=== PATIENT | male | born 1960 | race Caucasian/White ===

== ENCOUNTER 2016-11-29 18:11 | Emergency (ER) | payer BC, OTHER ==
[2016-11-29 18:17] VITALS: TEMP 97.8
--- NOTE | 2016-11-29 18:46 | ED ---
Chest Pain HPI - General Chief Complaint: Chest Pain Stated Complaint: CHEST PAIN Time Seen by Provider: 11/29/16 18:19 Source: patient, RN notes reviewed Mode of arrival: wheelchair Limitations: no limitations - History of Present Illness Initial Comments: This is a 55-year-old male with a history of diabetes a former smoker quit over 20 years ago who states that he was lifting a case of wine prior to admission he started developing sharp midsternal chest pain with some brief shortness of breath. It did not last long he points to his lower extremities are reported area. He states he does get pain like this occasionally using farther to the left however. He is been seen by his patient intake coordinator and told it was not heart pain. Yesterday was cathed about 5 years ago and found have quite a 40% blockage of an artery. He currently is pain and symptom-free of note however he states over last week he's had elevated blood sugars into the 300 which is not normal for him. He denies any cough rhinorrhea earaches sore throat dysuria hematuria. MD Complaint: chest pain, other - Related Data Home Medications Medication Instructions Recorded Confirmed Aspirin 81 mg PO DAILY 11/29/16 11/29/16 Enalapril [Vasotec] 5 mg PO DAILY 11/29/16 11/29/16 Insulin Aspart [NovoLOG] See Protocol SQ AC-TID 11/29/16 11/29/16 Insulin Detemir [Levemir] 50 unit SQ HS 11/29/16 11/29/16 Liraglutide [Victoza 2-Carlos] 1.8 mg SQ QAM 11/29/16 11/29/16 Loratadine [Claritin] 10 mg PO DAILY 11/29/16 11/29/16 Metoprolol Tartrate [Lopressor] 50 mg PO BID 11/29/16 11/29/16 Multivitamins, Thera [Multivitamin 1 tab PO DAILY 11/29/16 11/29/16 (formulary)] Pioglitazone [Actos] 30 mg PO DAILY 11/29/16 11/29/16 Simvastatin 40 mg PO DAILY 11/29/16 11/29/16 Previous Rx's Medication Instructions Recorded Magnesium l-Lactate [Magbid ER] 84 mg PO DAILY #14 tablet.er 11/29/16 Allergies Allergy/AdvReac Type Severity Reaction Status Date / Time No Known Allergies Allergy Verified 11/29/16 19:08 Review of Systems ROS Statement: Those systems with pertinent positive or pertinent negative responses have been documented in the HPI. ROS Other: All systems not noted in ROS Statement are negative. EKG Findings - EKG Results: EKG: interpreted by TOREY LAYTON, sinus rhythm, normal axis, normal QRS, normal ST/ T, no acute changes (Normal sinus rhythm of 70 and appeared of 01 38 QRS duration 82 daily since QTC of 360/421 ct wave changes.) Past Medical History Past Medical History: Diabetes Mellitus History of Any Multi-Drug Resistant Organisms: None Reported Past Surgical History: Heart Catheterization, Orthopedic Surgery Past Psychological History: No Psychological Hx Reported Smoking Status: Never smoker Past Alcohol Use History: Rare Past Drug Use History: None Reported General Exam - General Exam Comments Initial Comments: This is a well-developed well-nourished awake alert oriented times 3 male Limitations: no limitations General appearance: alert, in no apparent distress Head exam: Present: atraumatic, normocephalic, normal inspection Eye exam: Present: normal appearance, PERRL, EOMI. Absent: scleral icterus, conjunctival injection, periorbital swelling ENT exam: Present: mucous membranes dry Neck exam: Present: normal inspection. Absent: tenderness, meningismus, lymphadenopathy Respiratory exam: Present: normal lung sounds bilaterally, chest wall tenderness (Reproducible tenderness palpation over left costochondral margin left costosternal junction.). Absent: respiratory distress, wheezes, rales, rhonchi, stridor Cardiovascular Exam: Present: regular rate, normal rhythm, normal heart sounds. Absent: systolic murmur, diastolic murmur, rubs, gallop, clicks GI/Abdominal exam: Present: soft, normal bowel sounds. Absent: distended, tenderness, guarding, rebound, rigid Extremities exam: Present: normal inspection, full ROM, normal capillary refill. Absent: tenderness, pedal edema, joint swelling, calf tenderness Back exam: Present: normal inspection Neurological exam: Present: alert, oriented X3, CN II-XII intact Psychiatric exam: Present: normal affect, normal mood Skin exam: Present: warm, dry, intact, normal color. Absent: rash Course Vital Signs 11/29/16 11/29/16 18:15 19:10 Temperature 97.8 F Pulse Rate 82 77 Respiratory 18 18 Rate Blood Pressure 133/62 128/72 O2 Sat by Pulse 97 98 Oximetry Chest Pain MDM - MDM I did discuss the findings with the patient including the nl xr. The presentation is consistent with a musculoskeletal etiology. The patient will be discharged and follow up with Dr. Carter Oakes and be given an Rx for mg+ Disposition Clinical Impression: Costalchondritis, Chest wall syndrome, Hypomagnesemia Disposition: HOME SELF-CARE Condition: Good Instructions: Costochondritis (ED) Prescriptions: Magnesium l-Lactate [Magbid ER] 84 mg PO DAILY #14 tablet.er Referrals: Arnold Osborn MD [Primary Care Provider] - 1-2 days
--- NOTE | 2016-11-29 19:12 | XR ---
EXAMINATION TYPE: XR chest 2V DATE OF EXAM: 11/29/2016 COMPARISON: 11/23/2010 HISTORY: Shortness of breath TECHNIQUE: Frontal and lateral views of the chest are obtained. FINDINGS: Scattered senescent parenchymal changes noted. Hyperinflation compatible with COPD. No evidence for infiltrate. No evidence for atelectasis. Heart size is stable. Mediastinal structures are stable and grossly unremarkable. No evidence for hilar prominence. Degenerative changes dorsal spine. IMPRESSION: 1. No evidence for acute pulmonary disease.
[2016-11-29 19:23] LABS: Creatine Kinase 522 U/L (55-170)
[2016-11-29 19:25] LABS: Appearance,Urine Clear (Clear); Bacteria,Urine Rare /hpf; Bilirubin,Urine Negative (Negative); CH 31.5; CHCM 35.1; Glucose,Urine (UA) 2+ (Negative); HCT 36.8 % (39.0-53.0); HDW 2.72; HGB 12.9 gm/dL (13.0-17.5); Ketones,Urine Negative (Negative); Leukocyte Esterase,Urine Negative (Negative); MCH 31.7 pg (25.0-35.0); MCHC 35.2 g/dL (31.0-37.0); MCV 90.1 fL (80.0-100.0); Mean Platelet Volume 7.9; Mucus,Urine Occasional /hpf; Nitrite,Urine Negative (Negative); PH, Urine 5.5 (5.0-8.0); Particle Count 3523; Protein,Urine 2+ (Negative); RBC 4.09 m/uL (4.30-5.90); RBC,Urine 1 /hpf (0-5); RDW 12.8 % (11.5-15.5); Specific Gravity,Urine 1.022 (1.001-1.035); UA Billing (MACRO vs. MICRO) MICRO; Urobilinogen,Urine <2.0 mg/dL (<2.0); WBC 8.8 k/uL (3.8-10.6); WBC (Perox) 8.75; WBC,Urine 1 /hpf (0-5)
[2016-11-29 19:33] LABS: ALT 38 U/L (21-72); AST 30 U/L (17-59); Alkaline Phosphatase 70 U/L (38-126); Amylase 98 U/L (30-110); Anion Gap 11 mmol/L; Blood Urea Nitrogen 18 mg/dL (9-20); Calcium 9.8 mg/dL (8.4-10.2); Carbon Dioxide 23 mmol/L (22-30); Chloride 104 mmol/L (98-107); Glucose 219 mg/dL (74-99); Magnesium 1.2 mg/dL (1.6-2.3); Non-African American GFR(MDRD) >60 (>60 ml/min/1.73 sqM); Potassium 4.7 mmol/L (3.5-5.1); Sodium 138 mmol/L (137-145); Total Bilirubin 0.5 mg/dL (0.2-1.3); Total Protein 7.5 g/dL (6.3-8.2)
[2016-11-29 19:34] LABS: Troponin I <0.012 ng/mL (0.000-0.034)
[2016-11-29 19:37] LABS: Creatine Kinase MB 3.5 ng/mL (0.0-2.4)
[2016-11-29 20:07] LABS: Add Differential Manual Differential
[2016-11-29 20:08] LABS: INR 1.1 (<1.1); Nucleated Red Blood Cells 0 /100 WBC (0-0); Prothrombin Time 11.2 sec (9.0-12.0); Total Cells Counted 100
[2016-11-29 20:09] LABS: Polychromasia Present
[2016-11-29] MEDS ORDERED: MAGNESIUM SULFATE-D5W PMX 1 GM in DEXTROSE/WATER 1 100ML.BAG IVPB ONE (20:11)
[2016-11-29] MEDS ORDERED: MAGNESIUM OXIDE 400 MG TAB PO STA (20:18)
[2016-11-29 20:41] VITALS: BP 131/68; PULSE 73; RESP 16
[2016-11-29 23:45] LABS: Hemoglobin A1C 8.4 % (4.2-6.1)
== END 2016-11-29 20:45 | disposition home or self-care (01) ==
LOC: EC 18:11
DX: M94.0 Chondrocostal junction syndrome [Tietze] (principal); E83.42 Hypomagnesemia; E11.9 Type 2 diabetes mellitus without complications; Z87.891 Personal history of nicotine dependence; Z79.4 Long term (current) use of insulin; Z79.82 Long term (current) use of aspirin; Z79.899 Other long term (current) drug therapy
CPT/HCPCS: 36415; 71020; 80053; 81001; 82009; 82150; 82550; 82553; 83036; 83690; 83735; 83880; 84484; 85025; 85379; 85610; 85730; 93005; 99285

== ENCOUNTER → 2018-06-07 | Outpatient (CLI) | payer BC ==
--- NOTE | 2018-06-07 13:41 | US ---
EXAMINATION TYPE: US kidneys/renal and bladder DATE OF EXAM: 06/07/2018 COMPARISON: CLINICAL HISTORY: N20.0 KIDNEY STONE. Hx of renal stones. Left side discomfort. EXAM MEASUREMENTS: Right Kidney: 10.6 x 5.1 x 5.5 cm Left Kidney: 11.5 x 4.8 x 5.5 cm Right Kidney: wnl Left Kidney: wnl Bladder: wnl, distended Bilateral Jets seen There is no evidence for hydronephrosis at this point in time. Questionable punctate right mid pole 2 mm calculus is seen. Nonshadowing possible 5 mm left renal calculus seen. No masses are identified. The urinary bladder is anechoic. Bilateral ureteral jets are seen. IMPRESSION: Possible punctate bilateral nonobstructing calculi. No hydronephrosis.
== END | disposition home or self-care (01) ==
LOC: RADUSWWP 12:30
PROVIDERS: ATTEND Internal Medicine Geriatric Medicine
DX: N20.0 Calculus of kidney (principal)
CPT/HCPCS: 76770

== ENCOUNTER → 2019-07-08 | Outpatient (CLI) | payer BC ==
--- NOTE | 2019-07-08 14:26 | XR ---
EXAM TYPE: LUMBAR SPINE X RAY SERIES COMPARISON: 10/20/2013 HISTORY: Pain TECHNIQUE: 4 views are submitted. FINDINGS: Alignment is anatomic. The pedicles are intact. The transverse processes are intact. There is no s pondylolisthesis. Multilevel hypertrophic changes are seen and there is facet arthropathy at L4-5 an d L5-S1. Vascular calcifications are noted. IMPRESSION: 1. Facet arthropathy L4-5 and L5-S1. Correlate with MRI as clinically warranted.
== END | disposition home or self-care (01) ==
LOC: RAD 14:04
PROVIDERS: ATTEND Internal Medicine Geriatric Medicine
DX: M46.97 Unspecified inflammatory spondylopathy, lumbosacral region (principal)
CPT/HCPCS: 72100

== ENCOUNTER → 2019-07-21 | Outpatient (CLI) | payer BC ==
--- NOTE | 2019-07-21 16:47 | US ---
EXAMINATION TYPE: US kidneys/renal and bladder DATE OF EXAM: 07/21/2019 COMPARISON: US 06/07/2018 CLINICAL HISTORY: N20.0 Kidney Stone. EXAM MEASUREMENTS: Right Kidney: 11.7 X 5.7 X 5.6 cm Left Kidney: 12.6 X 6.3 X 5.5 cm Right Kidney: No hydronephrosis or masses seen Left Kidney: No hydronephrosis or masses seen Bladder: wnl Bilateral Jets seen: Yes There is no evidence for hydronephrosis at this point in time. No nephrolithiasis is seen. No britt s are identified. The urinary bladder is anechoic. Bilateral ureteral jets are seen. Ascites. Cortical medullary differentiation maintained within the kidneys. IMPRESSION: Normal kidneys
== END | disposition home or self-care (01) ==
LOC: RADUSMAIN 15:43
PROVIDERS: ATTEND Internal Medicine Geriatric Medicine
DX: N20.0 Calculus of kidney (principal)
CPT/HCPCS: 76770

== ENCOUNTER → 2020-05-03 | Outpatient (CLI) | payer BC ==
--- NOTE | 2020-05-03 13:14 | XR ---
EXAMINATION TYPE: XR chest 2V DATE OF EXAM: 05/03/2020 COMPARISON: 11/29/2016 TECHNIQUE: PA and lateral views submitted. HISTORY: Cough FINDINGS: The lungs are clear and there is no pneumothorax, pleural effusion, or focal pneumonia. Heart is en larged and there is limited inspiration with linear changes at both lung bases. No overt failure. Hyp ertrophic and degenerative changes spine. IMPRESSION: 1. No acute process. Bilateral linear areas of solid lesion most typical of atelectasis or scar.
== END | disposition home or self-care (01) ==
LOC: RADXRMAIN 12:50
PROVIDERS: ATTEND Nurse Practitioner Gerontology
DX: R91.1 Solitary pulmonary nodule (principal)
CPT/HCPCS: 71046

== ENCOUNTER → 2020-10-19 | Outpatient (CLI) | payer BC ==
--- NOTE | 2020-10-19 16:32 | XR ---
Left shoulder HISTORY: M 25.512 4 views of left shoulder There is spurring at the acromioclavicular joint. Bone mineralization, joint spaces and alignment are maintained. No fracture or dislocation. Left lung apex as visualized is normal. Distal acromion is d ownturned. IMPRESSION: Correlate for possible impingement. Shoulder MRI may be of benefit.
--- NOTE | 2020-10-19 16:37 | XR ---
First digit left hand HISTORY: M 25.512 3 views of the first digit left hand Bone mineralization, joint spaces and alignment are maintained. IMPRESSION: No fracture or dislocation.
== END | disposition home or self-care (01) ==
LOC: RADXRMAIN 12:13
PROVIDERS: ATTEND Nurse Practitioner Family
DX: M25.512 Pain in left shoulder (principal)

== ENCOUNTER → 2020-12-08 | Outpatient (CLI) | payer BC | END | disposition home or self-care (01) | LOC: RADMRIMAIN 09:03 | PROVIDERS: ATTEND Internal Medicine Geriatric Medicine | DX: Z53.9 Procedure and treatment not carried out, unspecified reason (principal) ==

== ENCOUNTER 2023-06-05 06:54 | Day surgery (SDC) | payer BC ==
[~2023-06-05 06:54] MED LIST: LACTATED RINGERS 1,000 ML IV SCH
[2023-06-05 07:20] LABS: Glucose,Whole Blood 109 mg/dL (70-110)
[2023-06-05 07:25] VITALS: TEMP 97.6
[2023-06-05] MEDS ORDERED: LIDOCAINE 1% INJ 10MG/ML (20 ML MDV) ONE (08:04)
[2023-06-05] MEDS ORDERED: PROPOFOL 10 MG/ML 20 ML VIAL IV ONE (08:04)
--- NOTE | 2023-06-05 08:09 | P.GSHP ---
History of Present Illness H&P Date: 06/05/23 Chief Complaint: Screening with history of polyps 62-year-old male here today for colonoscopy. Patient has history of colon polyps. Last colonoscopy 5 years ago or so. No bowel complaints. No rectal bleeding. Patient says he does have a hemorrhoid that pops out at times. Past Medical History Past Medical History: Asthma, Chest Pain / Angina, Diabetes Mellitus, Hyperlipidemia, Hypertension, Renal Disease, Sleep Apnea/CPAP/BIPAP Additional Past Medical History / Comment(s): uses CPAP, decreased kidney function, umbilical hernia currently, recent adm. for chest pain, no problems found per pt. History of Any Multi-Drug Resistant Organisms: None Reported Past Surgical History: Heart Catheterization, Hernia Repair, Orthopedic Surgery Additional Past Surgical History / Comment(s): left shoulder surg., mult. right ankle surgeries Past Anesthesia/Blood Transfusion Reactions: No Reported Reaction Smoking Status: Former smoker Medications and Allergies Home Medications Medication Instructions Recorded Confirmed Type Aspirin 81 mg PO DAILY 11/29/16 06/01/23 History Enalapril [Vasotec] 5 mg PO DAILY 11/29/16 06/01/23 History Metoprolol Tartrate [Lopressor] 50 mg PO BID 11/29/16 06/01/23 History Pioglitazone [Actos] 30 mg PO DAILY 11/29/16 06/01/23 History Simvastatin 40 mg PO HS 11/29/16 06/01/23 History Albuterol Inhaler [Ventolin Hfa 2 puff INHALATION RT-Q6H PRN 04/12/23 06/01/23 History Inhaler] Empagliflozin [Jardiance] 25 mg PO DAILY 04/12/23 06/01/23 History Insulin Degludec [Tresiba 60 units SQ HS 04/12/23 06/01/23 History Flextouch U-200 Pen] Montelukast [Singulair] 10 mg PO HS 04/12/23 06/01/23 History Omeprazole 20 mg PO BID 04/12/23 06/01/23 History Tirzepatide [Mounjaro] 5 mg SQ MO 04/12/23 06/01/23 History metFORMIN HCL ER [Glucophage XR] 1,000 mg PO DAILY 04/12/23 06/01/23 History metFORMIN HCL ER [Glucophage XR] 500 mg PO HS 04/12/23 06/01/23 History Inhaler(Unknown Name) 1 puff INHALATION DAILY 06/01/23 06/05/23 History Allergies Allergy/AdvReac Type Severity Reaction Status Date / Time shellfish derived [Shellfish] Allergy Mild Itching Verified 06/05/23 07:05 Penicillins Allergy Anaphylaxis Verified 06/05/23 07:05 Surgical - Exam Vital Signs Temp Pulse Resp BP Pulse Ox 97.6 F 65 20 137/65 96 06/05/23 07:24 06/05/23 07:24 06/05/23 07:24 06/05/23 07:24 06/05/23 07:24 Physical exam: General: Well-developed, well-nourished HEENT: Normocephalic, sclerae nonicteric Abdomen: Nontender, nondistended Extremities: No edema Neuro: Alert and oriented Assessment and Plan (1) Colon cancer screening Narrative/Plan: Will proceed with colonoscopy at this time Current Visit: Yes Status: Acute Code(s): Z12.11 - ENCOUNTER FOR SCREENING FOR MALIGNANT NEOPLASM OF COLON SNOMED Code(s): 833888274
--- NOTE | 2023-06-05 08:26 | P.PCN ---
Date of Procedure: 06/05/23 Procedure(s) Performed: PREOPERATIVE DIAGNOSIS: Screening with history of polyps POSTOPERATIVE DIAGNOSIS: Colon polyps, small hemorrhoids PROCEDURE: Colonoscopy with snare polypectomy ANESTHESIA: MAC SURGEON: Abhijit Ross M.D. SPECIMENS: Polyps ENDOSCOPIC PROCEDURE: The patient was placed on the endoscopy table in the left decubitus position. The Olympus colonoscope was inserted into the anus and passed under direct visualization to the cecum. I could not pass the scope into the cecal base however I could visualize most of the base of the cecum from a distance. The patient's distal tortuosity was limiting our proximal reach. The cecum itself as visualized was normal. In the ascending colon there were a total of 3 polyps all removed using the snare with cautery technique. The transverse colon appeared normal. The descending colon had another small polyp that was removed in a similar fashion. The remainder of the descending sigmoid and rectum appeared normal. There was no visible diverticulosis. At the anus patient was noted to have some skin tags and a external hemorrhoid. No sizable internal hemorrhoids were seen. The patient was taken to the recovery room in stable condition per anesthesia guidelines. RECOMMENDATIONS: Await biopsy results. Resume diet. Repeat colonoscopy 5 years
[2023-06-05 09:03] VITALS: BP 119/72; PULSE 77; RESP 16
== END 2023-06-05 09:17 | disposition home or self-care (01) ==
LOC: ORWHC2ENDO 06:54
PROVIDERS: ATTEND Surgery
DX: D12.2 Benign neoplasm of ascending colon (principal); D12.4 Benign neoplasm of descending colon; J45.909 Unspecified asthma, uncomplicated; E11.9 Type 2 diabetes mellitus without complications; I10 Essential (primary) hypertension; G47.33 Obstructive sleep apnea (adult) (pediatric); E78.5 Hyperlipidemia, unspecified; Z79.84 Long term (current) use of oral hypoglycemic drugs; Z87.891 Personal history of nicotine dependence; Z88.0 Allergy status to penicillin; Z79.899 Other long term (current) drug therapy
CPT/HCPCS: 88305; 45385; J2001; J2704

== ENCOUNTER → 2023-08-08 | Outpatient (CLI) | payer BC ==
--- NOTE | 2023-08-08 10:22 | US ---
EXAMINATION TYPE: US kidneys/renal and bladder DATE OF EXAM: 08/08/2023 COMPARISON: 07/21/2019 CLINICAL INDICATION: Male, 62 years old with history of N17.9 ACUTE RENAL FAILURE; Abnormal labs. No pain. EXAM MEASUREMENTS: Right Kidney: 12.2 x 6.3 x 7.8 cm Left Kidney: 10.7 x 5.9 x 6.0 cm Suboptimal due to patient body habitus Right Kidney: No hydronephrosis or masses seen Left Kidney: No hydronephrosis or masses seen Bladder: distended, anechoic Bilateral Jets not seen There is no evidence for hydronephrosis at this point in time. No nephrolithiasis is seen. No britt s are identified. The urinary bladder is anechoic. Bilateral ureteral jets are seen. IMPRESSION: No evidence for obstructive uropathy.
--- NOTE | 2023-08-08 11:25 | XR ---
EXAMINATION TYPE: XR chest 2V DATE OF EXAM: 08/08/2023 COMPARISON: 04/12/2023 TECHNIQUE: PA and lateral views submitted. HISTORY: Shortness of breath FINDINGS: The lungs are clear and there is no pneumothorax, pleural effusion, or focal pneumonia. Heart size normal and no overt failure. Osseous structures demonstrate hypertrophic and degenerative changes of the spine. IMPRESSION: 1. No acute process.
--- NOTE | 2023-08-08 11:28 | XR ---
EXAM TYPE: LUMBAR SPINE X RAY SERIES COMPARISON: 07/08/2019 HISTORY: Shortness of breath TECHNIQUE: 4 views are submitted. FINDINGS: Alignment is anatomic. The pedicles are intact. The transverse processes are intact. There is no s pondylolysis or spondylolisthesis. Facet arthropathy L4-5 and L5-S1. Anterior spurring at all levels . Mild disc space narrowing T12-L1. IMPRESSION: 1. Facet arthropathy L4-5 and L5-S1 with suspected foraminal protrusion. 2. Mild degenerative disc disease T12-L1.
== END | disposition home or self-care (01) ==
LOC: RADUSWWP 09:36
PROVIDERS: ATTEND Internal Medicine Geriatric Medicine
DX: N17.9 Acute kidney failure, unspecified (principal); R06.02 Shortness of breath; M47.817 Spondylosis without myelopathy or radiculopathy, lumbosacral region; M51.35 Other intervertebral disc degeneration, thoracolumbar region; M54.9 Dorsalgia, unspecified
CPT/HCPCS: 71046; 72100; 76770

== ENCOUNTER 2023-08-14 15:49 | Inpatient (IN) | payer BC ==
--- NOTE | 2023-08-14 16:35 | ED ---
General Adult HPI - General Source: patient, RN notes reviewed Mode of arrival: ambulatory Limitations: no limitations <Pushpa Garrido - Last Filed: 08/14/23 16:33> <Fredrick Gramajo - Last Filed: 08/14/23 20:08> - General Stated complaint: Kidney issues-sent by drs Time Seen by Provider: 08/14/23 16:33 - History of Present Illness Initial comments: 62 year old male presents to the emergency department sent in by Dr. Osborn. Patient reports that he has had significantly elevated WBCs, reports diagnosed with lymphoma today. He also states that he was told he had an ALLEN. Admits to mild shortness of breath. Denies chest pain. (Pushpa Garrido) This is a 62-year-old male who presents to the emergency department who was recently diagnosed with lymphoma. Patient was sent in by his primary medical care doctor because the patient's kidney function is getting worse and the doctor wants a CT of his chest abdomen pelvis and head wants the patient to be admitted. Also was requesting the patient be placed on some gram-negative antibiotic. Patient himself states he really does not have any symptoms other than the multiple lumps on his face chest and back. Patient states this is how they determined he had lymphoma because they biopsied those and it was determined he had lymphoma but the specific type remains to be seen yet. Patient denies any fever chills or cough. Patient has chest pain difficulty breathing or shortness of breath. Patient Nu[place] headache patient has numbness weakness. (Fredrick Gramajo) - Related Data Home Medications Medication Instructions Recorded Confirmed Metoprolol Tartrate [Lopressor] 50 mg PO BID 11/29/16 08/14/23 Pioglitazone [Actos] 30 mg PO DAILY 11/29/16 08/14/23 Simvastatin 40 mg PO HS 11/29/16 08/14/23 Albuterol Inhaler [Ventolin Hfa 2 puff INHALATION RT-Q6H PRN 04/12/23 08/14/23 Inhaler] Insulin Degludec [Tresiba 50 units SQ HS 04/12/23 08/14/23 Flextouch U-200 Pen] Montelukast [Singulair] 10 mg PO DAILY 04/12/23 08/14/23 Omeprazole 20 mg PO BID 04/12/23 08/14/23 Budesonide/Glycopyr/Formoterol 2 puff INHALATION RT-DAILY 08/14/23 08/14/23 [Breztri Aerosphere Inhaler] Tamsulosin [Flomax] 0.4 mg PO DAILY 08/14/23 08/14/23 Tirzepatide [Mounjaro] 7.5 mg SQ MO 08/14/23 08/14/23 Allergies Allergy/AdvReac Type Severity Reaction Status Date / Time shellfish derived [Shellfish] Allergy Mild Itching Verified 08/14/23 19:33 Penicillins Allergy Anaphylaxis Verified 08/14/23 19:33 Review of Systems ROS Other: All systems not noted in ROS Statement are negative. <Pushpa Garrido - Last Filed: 08/14/23 16:33> ROS Other: All systems not noted in ROS Statement are negative. <Fredrick Gramajo - Last Filed: 08/14/23 20:08> ROS Statement: Those systems with pertinent positive or pertinent negative responses have been documented in the HPI. Past Medical History Past Medical History: Asthma, Chest Pain / Angina, Diabetes Mellitus, Hyperlipidemia, Hypertension, Renal Disease, Sleep Apnea/CPAP/BIPAP Additional Past Medical History / Comment(s): uses CPAP, decreased kidney function, umbilical hernia currently, recent adm. for chest pain, no problems found per pt. History of Any Multi-Drug Resistant Organisms: None Reported Past Surgical History: Heart Catheterization, Hernia Repair, Orthopedic Surgery Additional Past Surgical History / Comment(s): left shoulder surg., mult. right ankle surgeries Past Anesthesia/Blood Transfusion Reactions: No Reported Reaction Past Psychological History: No Psychological Hx Reported Smoking Status: Former smoker <Pushpa Garrido - Last Filed: 08/14/23 16:33> General Exam Limitations: no limitations <Pushpa Garrido - Last Filed: 08/14/23 16:33> <Fredrick Gramajo - Last Filed: 08/14/23 20:08> - General Exam Comments Initial Comments: Visual Physical Exam Vital signs reviewed General: Well-appearing, nontoxic, no acute distress. Head: Normocephalic, atraumatic Eyes: PERRLA, EOMI ENT: Airway patent Chest: Nonlabored breathing Skin: No visual rash, normal skin tone Neuro: Alert and oriented 3 Musculoskeletal: No gross abnormalities (Pushpa Garrido) GENERAL: Patient is well-developed and well-nourished. Patient is nontoxic and well- hydrated and is in no acute distress. ENT: Neck is soft and supple. No significant lymphadenopathy is noted. Oropharynx is clear. Moist mucous membranes. Neck has full range of motion without eliciting any pain. EYES: The sclera were anicteric and conjunctiva were pink and moist. Extraocular movements were intact and pupils were equal round and reactive to light. Eyelids were unremarkable. PULMONARY: Unlabored respirations. Good breath sounds bilaterally. No audible rales rhonchi or wheezing was noted. CARDIOVASCULAR: There is a regular rate and rhythm without any murmurs gallops or rubs. ABDOMEN: Soft and nontender with normal bowel sounds. SKIN: Patient has multiple facial back and chest lumps that are mostly flesh-colored but some are purple NEUROLOGIC: Patient is alert and oriented x3. Cranial nerves II through XII are grossly intact. Motor and sensory are also intact. Normal speech, volume and content. Symmetrical smile. MUSCULOSKELETAL: Normal extremities with adequate strength and full range of motion. LYMPHATICS: No significant lymphadenopathy is noted PSYCHIATRIC: Normal psychiatric evaluation. (Fredrick Gramajo) Course Vital Signs 08/14/23 08/14/23 16:30 17:02 Temperature 98.1 F Pulse Rate 100 89 Respiratory 20 20 Rate Blood Pressure 186/94 174/84 O2 Sat by Pulse 98 98 Oximetry Medical Decision Making <Pushpa Garrido - Last Filed: 08/14/23 16:33> - Lab Data Result diagrams: 08/14/23 16:51 08/14/23 16:51 <Fredrick Gramajo - Last Filed: 08/14/23 20:08> - Medical Decision Making Quick note preformed by Pushpa Garrido PA-C (Pushpa Garrido) EKG is interpreted by myself but EKG shows sinus rhythm at 91 bpm parables 142 QRS is 86 QT interval 386 QTc is 435. Patient EKG shows no ST segment elevation or depression. Was pt. sent in by a medical professional or institution (, [facility], MANAGER AGENCY, urgent care, hospital, or detention...) When possible be specific @ -Patient was told to come in by his primary medical care doctor Did you speak to anyone other than the patient for history (EMS, parent, family, police, friend...)? What history was obtained from this source @ -No Did you review nursing and triage notes (agree or disagree)? Why? @ -I reviewed and agree with nursing and triage notes Were old charts reviewed (outside hosp., previous admission, EMS record, old EKG, old radiological studies, urgent care reports/EKG's, detention records)? Report findings @ -I reviewed prior charts and prior lab work on this patient Differential Diagnosis (chest pain, altered mental status, abdominal pain women, abdominal pain men, vaginal bleeding, weakness, fever, dyspnea, syncope, headache, dizziness, GI bleed, back pain, seizure, CVA, palpatations, mental health, musculoskeletal)? @ -Not applicable EKG interpreted by me (3pts min.). @ -As above X-rays interpreted by me (1pt min.). @ -Chest x-ray shows no acute abnormality. CT interpreted by me (1pt min.). @ -Patient CT of the chest abdomen pelvis shows splenomegaly, right axillary adenopathy, bilateral fat stranding around the kidneys and ureters, adrenal nodule U/S interpreted by me (1pt. min.). @ -None done What testing was considered but not performed or refused? (CT, X-rays, U/S, labs)? Why? @ -None What meds were considered but not given or refused? Why? @ -None Did you discuss the management of the patient with other professionals (professionals i.e. , PA, MANAGER AGENCY, lab, RT, psych nurse, social work case manager, offset pressman, teacher, corporate compliance officer, home health care case manager)? Give summary @ -I spoke with Dr. Osborn and he agreed to admit the patient Was smoking cessation discussed for >3mins.? @ -No Was critical care preformed (if so, how long)? @ -No Were there social determinants of health that impacted care today? How? (Homelessness, low income, unemployed, alcoholism, drug addiction, transportation, low edu. Level, literacy, decrease access to med. care, nursing home, rehab)? @ -No Was there de-escalation of care discussed even if they declined (Discuss DNR or withdrawal of care, Hospice)? DNR status @ -No What co-morbidities impacted this encounter? (DM, HTN, Smoking, COPD, CAD, Cancer, CVA, ARF, Chemo, Hep., AIDS, mental health diagnosis, sleep apnea, morbid obesity)? @ -None Was patient admitted / discharged? Hospital course, mention meds given and route, prescriptions, significant lab abnormalities, going to OR and other pertinent info. @ -Patient remained asymptomatic throughout his ED course. Patient CAT scan showed splenomegaly a new nodule in the right axilla and adrenal area patient al so has some fat stranding around the kidneys. Patient's white count was 37,000 magnesium is 1.3 creatinine is 3.1 platelets were 46. I spoke with Dr. Osborn he wanted to have the patient admitted and patient was admitted he also wanted it patient to be started on Levaquin and consult nephrology and oncology. Undiagnosed new problem with uncertain prognosis? @ -No Drug Therapy requiring intensive monitoring for toxicity (Heparin, Nitro, Insulin, Cardizem)? @ -No Were any procedures done? @ -No Diagnosis/symptom? @ -Lymphoma Acute, or Chronic, or Acute on Chronic? @ -Acute Uncomplicated (without systemic symptoms) or Complicated (systemic symptoms)? @ -Complicated Side effects of treatment? @ -No Exacerbation, Progression, or Severe Exacerbation? @ -No Poses a threat to life or bodily function? How? (Chest pain, [place], [place], pneumonia, PE, COPD, DKA, ARF, appy, cholecystitis, CVA, Diverticulitis, Homicidal, Suicidal, threat to staff... and all critical care pts) @ -Yes this can lead to potential morbidity or Diagnosis/symptom? @ -Leukocytosis Acute, or Chronic, or Acute on Chronic? @ -Acute Uncomplicated (without systemic symptoms) or Complicated (systemic symptoms)? @ -Complicated Side effects of treatment? @ -None Exacerbation, Progression, or Severe Exacerbation] @ -No Poses a threat to life or bodily function? @ -No Diagnosis/symptom? @ -Thrombocytopenia Acute, or Chronic, or Acute on Chronic? @ -Acute Uncomplicated (without systemic symptoms) or Complicated (systemic symptoms)? @ -Complicated Side effects of treatment? @ -None Exacerbation, Progression, or Severe Exacerbation] @ -No Poses a threat to life or bodily function? @ -Yes this could lead to severe bleeding hypoxia and endorgan dysfunction Diagnosis/symptom? @ -Acute kidney failure Acute, or Chronic, or Acute on Chronic? @ -Acute Uncomplicated (without systemic symptoms) or Complicated (systemic symptoms)? @ -Complicated Side effects of treatment? @ -None Exacerbation, Progression, or Severe Exacerbation] @ -No Poses a threat to life or bodily function? @ -Yes this can lead to severe electrolyte abnormalities fluid retention and morbidity Diagnosis/symptom? @ -Hypomagnesemia Acute, or Chronic, or Acute on Chronic? @ -Acute Uncomplicated (without systemic symptoms) or Complicated (systemic symptoms)? @ -Complicated Side effects of treatment? @ -None Exacerbation, Progression, or Severe Exacerbation] @ -No Poses a threat to life or bodily function? @ -No Diagnosis/symptom? @ -Splenomegaly Acute, or Chronic, or Acute on Chronic? @ -Acute Uncomplicated (without systemic symptoms) or Complicated (systemic symptoms)? @ -Complicated Side effects of treatment? @ -None Exacerbation, Progression, or Severe Exacerbation] @ -No Poses a threat to life or bodily function? @ -No (Fredrick Gramajo) - Lab Data Lab Results 08/14/23 08/14/23 08/14/23 Range/Units 16:51 16:51 16:51 WBC 37.1 H (3.8-10.6) k/uL RBC 3.87 L (4.30-5.90) m/uL Hgb 11.1 L (13.0-17.5) gm/dL Hct 33.5 L (39.0-53.0) % MCV 86.6 (80.0-100.0) fL MCH 28.6 (25.0-35.0) pg MCHC 33.0 (31.0-37.0) g/dL RDW 14.5 (11.5-15.5) % Plt Count 49 L (150-450) k/uL MPV 9.8 PT 13.8 H (10.0-12.5) sec INR 1.3 H (<1.2) APTT 26.4 (22.0-30.0) sec Sodium 138 (137-145) mmol/L Potassium 3.7 (3.5-5.1) mmol/L Chloride 106 (98-107) mmol/L Carbon Dioxide 19 L (22-30) mmol/L Anion Gap 13 mmol/L BUN 34 H (9-20) mg/dL Creatinine 3.13 H (0.66-1.25) mg/dL Est GFR (CKD-EPI)AfAm 24 (>60 ml/min/1.73 sqM) Est GFR (CKD-EPI)NonAf 20 (>60 ml/min/1.73 sqM) Glucose 181 H (74-99) mg/dL Plasma Lactic Acid Mahesh (0.7-2.0) mmol/L Calcium 9.0 (8.4-10.2) mg/dL Magnesium (1.6-2.3) mg/dL Total Bilirubin 0.7 (0.2-1.3) mg/dL AST 44 (17-59) U/L ALT 23 (4-49) U/L Alkaline Phosphatase 122 (38-126) U/L Total Protein 7.3 (6.3-8.2) g/dL Albumin 4.4 (3.5-5.0) g/dL 08/14/23 08/14/23 Range/Units 18:15 18:23 WBC (3.8-10.6) k/uL RBC (4.30-5.90) m/uL Hgb (13.0-17.5) gm/dL Hct (39.0-53.0) % MCV (80.0-100.0) fL MCH (25.0-35.0) pg MCHC (31.0-37.0) g/dL RDW (11.5-15.5) % Plt Count (150-450) k/uL MPV PT (10.0-12.5) sec INR (<1.2) APTT (22.0-30.0) sec Sodium (137-145) mmol/L Potassium (3.5-5.1) mmol/L Chloride (98-107) mmol/L Carbon Dioxide (22-30) mmol/L Anion Gap mmol/L BUN (9-20) mg/dL Creatinine (0.66-1.25) mg/dL Est GFR (CKD-EPI)AfAm (>60 ml/min/1.73 sqM) Est GFR (CKD-EPI)NonAf (>60 ml/min/1.73 sqM) Glucose (74-99) mg/dL Plasma Lactic Acid Mahesh 1.2 (0.7-2.0) mmol/L Calcium (8.4-10.2) mg/dL Magnesium 1.3 L (1.6-2.3) mg/dL Total Bilirubin (0.2-1.3) mg/dL AST (17-59) U/L ALT (4-49) U/L Alkaline Phosphatase (38-126) U/L Total Protein (6.3-8.2) g/dL Albumin (3.5-5.0) g/dL Disposition <Pushpa Garrido - Last Filed: 08/14/23 16:33> Time of Disposition: 20:08 <Fredrick Gramajo - Last Filed: 08/14/23 20:08> Clinical Impression: Leukocytosis, Thrombocytopenia, Lymphoma, Acute kidney injury, Axillary adenopathy, Hypomagnesemia Disposition: ADMITTED IP TO THIS HOSP Referrals: Arnold Osborn MD [Primary Care Provider] - 1-2 days
[2023-08-14 17:00] LABS: HCT 33.5 % (39.0-53.0); HGB 11.1 gm/dL (13.0-17.5); MCH 28.6 pg (25.0-35.0); MCV 86.6 fL (80.0-100.0); Mean Platelet Volume 9.8; RBC 3.87 m/uL (4.30-5.90); RDW 14.5 % (11.5-15.5); WBC 37.1 k/uL (3.8-10.6)
[2023-08-14 17:06] LABS: Platelet Count 49 k/uL (150-450)
[2023-08-14 17:15] LABS: INR 1.3 (<1.2); Partial Thromboplastin Time 26.4 sec (22.0-30.0); Prothrombin Time 13.8 sec (10.0-12.5)
--- NOTE | 2023-08-14 17:58 | XR ---
EXAMINATION TYPE: XR chest 2V DATE OF EXAM: 08/14/2023 COMPARISON: 08/08/2023 HISTORY: 62-year-old male shortness of breath and dorsalgia TECHNIQUE: PA and lateral views FINDINGS: The cardiomediastinal silhouette, aorta, and pulmonary vasculature are within normal limits. Mild str eaky perihilar densities. Mild central interstitial density. No consolidation or pleural effusion see n. IMPRESSION: There may be some subtle central interstitial findings which may be seen with bronchitis or asthma. O therwise, no acute process seen.
[2023-08-14 18:05] LABS: ALT 23 U/L (4-49); AST 44 U/L (17-59); African American GFR (CKD) 24 (>60 ml/min/1.73 sqM); Albumin 4.4 g/dL (3.5-5.0); Alkaline Phosphatase 122 U/L (38-126); Anion Gap 13 mmol/L; Blood Urea Nitrogen 34 mg/dL (9-20); Carbon Dioxide 19 mmol/L (22-30); Chloride 106 mmol/L (98-107); Glucose 181 mg/dL (74-99); Non-African American GFR(CKD) 20 (>60 ml/min/1.73 sqM); Potassium 3.7 mmol/L (3.5-5.1); Sodium 138 mmol/L (137-145); Total Bilirubin 0.7 mg/dL (0.2-1.3); Total Protein 7.3 g/dL (6.3-8.2)
[2023-08-14] MEDS: LEVOFLOXACIN 500MG-D5W PMX 500 MG in DEXTROSE/WATER 1 100ML.BAG IVPB STA (18:26)
--- NOTE | 2023-08-14 18:37 | CT ---
EXAMINATION TYPE: CT ChestAbdPelvis wo con DATE OF EXAM: 08/14/2023 COMPARISON: 05/26/2013 HISTORY: 62-year-old male Lymphoma. TECHNIQUE: Contiguous axial scanning of the chest, abdomen, and pelvis without IV contrast. Coronal a nd sagittal reconstructions performed. CT DLP: 1509.4 mGycm Automated exposure control for dose reduction was used. FINDINGS: Chest: Heart normal size with trace anterior pericardial fluid. Impression pulmonary artery calcifications are present. Aorta normal caliber with conventional branching anatomy. Stable 4 mm left mid lung pulmonary nodule. No consolidation or pleural effusion. Some strandy scarri ng or atelectasis is present anterior right midlung and left base. New right axillary adenopathy measuring up to 3.6 x 2.1 cm. Additionally, there are new scattered subcutaneous soft tissue deposits/nodules measuring up to 1.2 c m along the anterior chest and along the left lateral chest measuring up to 9 mm. ABDOMEN: Noncontrast appearance of the liver, gallbladder adrenal gland, and pancreas within normal limits. The spleen is not enlarged at 16.4 cm versus 13.2 cm, previously. New nodule right adrenal gland at 1.3 cm. Bilateral soft tissue stranding in the renal sinus fat region and on the proximal ureters. No nephrol ithiasis or obstructive calculus is seen. No dilated small bowel, free fluid, or free air. Normal appendix. Mild stool burden. No pericolonic inflammatory change. There is a moderate-sized fatty umbilical hernia measuring 5.1 cm wide. There is soft tissue strandin g in the underlying omental fat, axial image 97. Pelvis: Circumferential bladder wall thickening. Mild perivesicular fat stranding. Prostate gland is normal a t 3.8 cm wide. Presacral edema. No pelvic lymphadenopathy is seen. Bones: Mild degenerative change of the moderate degenerative disc disease mid to lower thoracic spine with s lightly accentuated lower thoracic kyphosis. Facet arthropathy lower lumbar spine. IMPRESSION: 1. NEW RIGHT AXILLARY ADENOPATHY MEASURING UP TO 3.6 CM. ADDITIONALLY, THERE ARE NEW SCATTERED SUBCUT ANEOUS SOFT TISSUE DEPOSITS/NODULES ALONG THE ANTERIOR CHEST AND LEFT LATERAL CHEST MEASURING UP TO 1 .2 CM AND 0.9 CM, RESPECTIVELY. FINDINGS SUSPECTED TO REPRESENT LYMPHOMA. 2. NEW SPLENOMEGALY AT 16.4 CM. NEW RIGHT ADRENAL GLAND NODULE MEASURING 1.3 CM. 3. NEW FAT STRANDING THROUGHOUT THE RENAL SINUS FAT OF BOTH KIDNEYS EXTENDING DOWN THE UPPER URETERS. POSSIBLE LYMPHOMATOUS INVOLVEMENT OF THE KIDNEYS. CORRELATE TO EXCLUDE UNDERLYING INFECTION. 4. MODERATE-SIZED PERIUMBILICAL HERNIA MEASURING 5.1 CM WIDE. THERE IS FAT STRANDING IN THE UNDERLYIN G OMENTAL FAT BEHIND THE HERNIA SAC SUGGESTING SOME INFLAMMATION. CORRELATE FOR ANY POINT TENDERNESS. 5. CIRCUMFERENTIAL BLADDER WALL THICKENING MAY BE CHRONIC FOR THE PATIENT. CORRELATE TO EXCLUDE CYSTI TIS.
[2023-08-14] MEDS ORDERED: NITROGLYCERIN SL TABS 0.4 MG TAB SUBLINGUAL PRN (20:08)
[2023-08-14] MEDS: MAGNESIUM SULFATE-D5W PMX 1 GM in DEXTROSE/WATER 1 100ML.BAG IVPB SCH (20:21)
[2023-08-14] MEDS: KETOROLAC 15 MG/ML 1 ML VIAL IVP STA (21:32)
[2023-08-14] MEDS: HYDROmorphone 0.5 MG/0.5 ML SYRINGE IVP STA (23:34)
[2023-08-15] MEDS: HYDROmorphone 0.5 MG/0.5 ML SYRINGE IVP PRN (04:50)
--- NOTE | 2023-08-15 06:04 | P.HPIM ---
History of Present Illness H&P Date: 08/14/23 Chief Complaint: Sepsis leukocytosis, thrombocytopenia, newly diagnosed left aggressive lymp 62-year-old gentleman went off my office patient was known for the last 10 years with past medical history of type 2 diabetes, chronic kidney disease, atherosclerotic heart disease, hypertension, hyperlipidemia, severe obstructive sleep apnea, recurrent asthma, severe neuropathy mild obesity who had seen dermatology over 2 weeks ago apparently for reactive dermatitis all over his body looks like small tiny sarcoma or granuloma but has been getting much worse. Ended up having biopsy at Dr. Reyna's office 2 weeks ago and were waiting for the result. Patient was seen in our office for last 10 days with progressive worsening symptoms consistent with severe tiredness fatigue and overall not feeling well surprisingly he started having an acute kidney injury with acute tubular necrosis with worsening kidney function creatinine climbing up from 1.6- 3.6 and short period of time. Had an appointment to see nephrology on Sunday for the last blood test has on last week shows reactive leukocytosis with significant thrombocytopenia and mild anemia repeat CBC today shows his white blood cell 40,000 with platelet count around 40,000 as well. 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 With a high suspicion for sepsis and worsening progressive acute kidney failure and possible of sepsis patient in the coming to the emergency department for was seen and evaluated blood culture was initiated repeat blood test and patient ended up going for CT of the abdomen and pelvis surprisingly shows new right axillary adenopathy measuring 3.6 cm with multiple lymphadenopathy all over also had splenomegaly with hepatomegaly and adrenal adenoma as well also finding consistent with lymph node all over consistent with lymphoma and circumferential bladder wall thickening and might represent chronic cystitis. We decided to admit patient to the hospital at this point specially declining kidney function will be seen oncology probably develop pathway to ask general surgery to do biopsy from the axillary lymph node for fast diagnosis as well to decide further management also gentle hydration. Repeat kidney function patient will be seen nephrology as inpatient as well if worsening symptoms patient might be close to need dialysis as well. Review of Systems: CONSTITUTIONAL: Mildly overweight does not look comfortable no major respiratory distress. EYES: No icterus sclerae, no conjunctivitis. EARS, NOSE, MOUTH, THROAT, and FACE: No sore throat, lymphadenopathy, carotid bruits or deformity. RESPIRATORY: Mild shortness of breath no wheezes. CARDIOVASCULAR: No CP, Palpitation, PND, Orthopnea, or angina. GASTROINTESTINAL: Slight abdominal discomfort with ventral hernia no nausea or vomiting slight change in bowel habit as well. GENITOURINARY: Decrease in kidney function with less frequent urination without any hematuria at this point. INTEGUMENT/BREAST: Lymph node enlargement. HEMATOLOGIC/LYMPHATIC: Lymph node enlargement with mild anemia. MUSCULOSKELTAL: Negative for Myalgia or arthralgia. NEURLOGICAL: No LOC, Sz or syncope, blurred vision dizziness or abnormality.. BEHAVIORAL/PSYCH: Negative. ENDOCRINE: Negative. Physical examination: General Appearance: Alert, slightly overweight, does not look comfortable but no respiratory distress. Neck HEENT: Supple with slight lymph node enlargement without any thyroid enlargement. Lungs: Clear to auscultation without crackles slight rhonchi no wheezes. Chest Wall: Chest wall normal expansion with deep inspiration no tenderness and no deformity was found on exam, no costochondral pain or discomfort. Heart: Regular rate and rhythm, S1, S2 normal, no murmur, rub or gallop. Back: Symmetric, no curvature, ROM normal, no CVA tenderness. Abdomen: Positive ventral hernia, slightly enlarged spleen, mildly hepatomegaly with mild discomfort in the mid abdominal region area. Extremities: Extremities normal, atraumatic, no cyanosis or edema. Pulses: 2+ and symmetric. Skin: Small granulated rash all over his body including the face and neck the chest wall area more like reactive dermatitis Neurologic: Alert oriented x3 cranial nerves II through XII intact, no motor deficit, no abnormal balance or gait. Assessment and plan: 1 newly diagnosis of aggressive lymphoma: Will require further diagnosis lymph node specially out of the axilla would be a good target for biopsy and consult general surgery for chest biopsy also would consult hematology to decide on staging and further management. 2 possible sepsis: With significant leukocytosis and thrombocytopenia, blood culture will be done patient was started on Levaquin initially because of his allergy waiting for the culture might consult infectious disease as well. 3 acute kidney injury with acute tubular necrosis: Much worsening kidney function last 2 weeks gentle hydration will consult nephrology he has done already ultrasound of the kidney with no sign of obstructive uropathy. 4 severe thrombocytopenia most likely reactive to either sepsis or his lymphoma may be there is any involvement of his lymphoma in the bone marrow especially if this is an aggressive type of lymphoma causing the suppressive bone marrow to have thrombocytopenia. Again will watch CBC daily and patient might require bone marrow biopsy. 5 type 2 diabetes: Has been on Mounjaro, Actos, Tresiba along with short acting insulin resume medication along with Accu-Chek with sliding scale coverage. 6 chronic neuropathy: Has not been on any medication lately but slightly bit worse. 7 chronic asthma has been seen pulmonary regular basis remain on albuterol and budesonide. 8 severe BPH: Has been on Flomax 0.4 mg daily. 9 hyperlipidemia will continue simvastatin 40 mg a day. 10 atherosclerotic heart disease has been seeing cardiology last stress test was from April last year. 11 hiatal hernia with worsening symptoms of GERD: Remain on omeprazole 20 mg twice a day on regular basis. GI prophylaxis: Continue omeprazole. DVT prophylaxis: Continue to avoid anticoagulation specially with his thrombocytopenia at this point the Venodyne boots and knee-high VASILIY hose will be planned. CODE STATUS: Full code. Admit patient to the inpatient service for more than 2 night stay. Past Medical History Past Medical History: Asthma, Chest Pain / Angina, Diabetes Mellitus, Hyperlipidemia, Hypertension, Renal Disease, Sleep Apnea/CPAP/BIPAP Additional Past Medical History / Comment(s): uses CPAP, decreased kidney function, umbilical hernia currently, recent adm. for chest pain, no problems found per pt. History of Any Multi-Drug Resistant Organisms: None Reported Past Surgical History: Heart Catheterization, Hernia Repair, Orthopedic Surgery Additional Past Surgical History / Comment(s): left shoulder surg., mult. right ankle surgeries Past Anesthesia/Blood Transfusion Reactions: No Reported Reaction Past Psychological History: No Psychological Hx Reported Smoking Status: Former smoker Medications and Allergies Home Medications Medication Instructions Recorded Confirmed Type Metoprolol Tartrate [Lopressor] 50 mg PO BID 11/29/16 08/14/23 History Pioglitazone [Actos] 30 mg PO DAILY 11/29/16 08/14/23 History Simvastatin 40 mg PO HS 11/29/16 08/14/23 History Albuterol Inhaler [Ventolin Hfa 2 puff INHALATION RT-Q6H PRN 04/12/23 08/14/23 History Inhaler] Insulin Degludec [Tresiba 50 units SQ HS 04/12/23 08/14/23 History Flextouch U-200 Pen] Montelukast [Singulair] 10 mg PO DAILY 04/12/23 08/14/23 History Omeprazole 20 mg PO BID 04/12/23 08/14/23 History Budesonide/Glycopyr/Formoterol 2 puff INHALATION RT-DAILY 08/14/23 08/14/23 History [Breztri Aerosphere Inhaler] Tamsulosin [Flomax] 0.4 mg PO DAILY 08/14/23 08/14/23 History Tirzepatide [Mounjaro] 7.5 mg SQ MO 08/14/23 08/14/23 History Allergies Allergy/AdvReac Type Severity Reaction Status Date / Time shellfish derived [Shellfish] Allergy Mild Itching Verified 08/14/23 19:33 Penicillins Allergy Anaphylaxis Verified 08/14/23 19:33 Physical Exam Vitals: Vital Signs Temp Pulse Resp BP Pulse Ox 08/15/23 04:00 109 H 20 163/70 98 08/15/23 00:29 105 H 20 151/80 96 08/14/23 20:12 99 18 143/75 97 08/14/23 17:02 89 20 174/84 98 08/14/23 16:30 98.1 F 100 20 186/94 98 Intake and Output 08/14/23 08/14/23 08/15/23 14:59 22:59 06:59 Other: Weight 113.398 kg Results CBC & Chem 7: 08/14/23 16:51 08/14/23 16:51 Labs: Abnormal Lab Results - Last 24 Hours (Table) 08/14/23 08/14/23 08/14/23 Range/Units 16:51 16:51 16:51 WBC 37.1 H (3.8-10.6) k/uL RBC 3.87 L (4.30-5.90) m/uL Hgb 11.1 L (13.0-17.5) gm/dL Hct 33.5 L (39.0-53.0) % Plt Count 49 L (150-450) k/uL PT 13.8 H (10.0-12.5) sec INR 1.3 H (<1.2) Carbon Dioxide 19 L (22-30) mmol/L BUN 34 H (9-20) mg/dL Creatinine 3.13 H (0.66-1.25) mg/dL Glucose 181 H (74-99) mg/dL Magnesium (1.6-2.3) mg/dL 08/14/23 Range/Units 18:23 WBC (3.8-10.6) k/uL RBC (4.30-5.90) m/uL Hgb (13.0-17.5) gm/dL Hct (39.0-53.0) % Plt Count (150-450) k/uL PT (10.0-12.5) sec INR (<1.2) Carbon Dioxide (22-30) mmol/L BUN (9-20) mg/dL Creatinine (0.66-1.25) mg/dL Glucose (74-99) mg/dL Magnesium 1.3 L (1.6-2.3) mg/dL
[2023-08-15] MEDS: IPRATROPIUM-ALBUTEROL 3 ML NEB INHALATION PRN (08:00)
[2023-08-15] MEDS ORDERED: IPRATROPIUM 0.5 MG/2.5 ML NEBU INHALATION SCH (08:00)
[2023-08-15] MEDS ORDERED: ALBUTEROL NEBULIZED 2.5 MG/3 ML INHALATION PRN (08:00)
[2023-08-15] MEDS: SYMBICORT 160-4.5 MCG INHALER INHALATION SCH (08:00)
[2023-08-15 08:58] LABS: Chol/HDL Ratio 4.87 Ratio; LDL Cholesterol,Calculated 19.3 mg/dL (0.0-131.0)
[2023-08-15] MEDS ORDERED: ASPIRIN 325 MG TAB PO SCH (09:00)
[2023-08-15 09:11] LABS: Band Neutrophils % 6 %; Blast Cells # (M) 4.82 k/uL (0); Eosinophils # (M) 0.37 k/uL (0-0.7); Lymphocytes # (M) 10.02 k/uL (1.0-4.8); Metamyelocytes # (M) 1.48 k/uL (0); Metamyelocytes % 4 %; Monocytes # (M) 4.45 k/uL (0-1.0); Myelocytes # (M) 1.11 k/uL (0); Myelocytes % 3 %; Neutrophils % (M) 36 %; Nucleated Red Blood Cells 0 /100 WBC (0-0); Total Cells Counted 200
[2023-08-15 09:19] LABS: ALT 21 U/L (4-49); AST 40 U/L (17-59); African American GFR (CKD) 23 (>60 ml/min/1.73 sqM); Albumin 3.7 g/dL (3.5-5.0); Albumin/Globulin Ratio 1.4; Alkaline Phosphatase 124 U/L (38-126); Anion Gap 12 mmol/L; Blood Urea Nitrogen 36 mg/dL (9-20); Calcium 8.8 mg/dL (8.4-10.2); Carbon Dioxide 17 mmol/L (22-30); Chloride 108 mmol/L (98-107); Globulin 2.6 g/dL; Glucose 151 mg/dL (74-99); Magnesium 1.6 mg/dL (1.6-2.3); Non-African American GFR(CKD) 20 (>60 ml/min/1.73 sqM); Potassium 3.1 mmol/L (3.5-5.1); Sodium 137 mmol/L (137-145); Total Bilirubin 0.7 mg/dL (0.2-1.3); Total Protein 6.3 g/dL (6.3-8.2)
[2023-08-15] MEDS: PANTOPRAZOLE 40 MG TABLET PO SCH (09:50)
[2023-08-15] MEDS: METOPROLOL TARTRATE 50 MG TAB PO SCH (09:50)
[2023-08-15] MEDS: TAMSULOSIN 0.4 MG CAP.ER.24H PO SCH (09:50)
[2023-08-15] MEDS: MONTELUKAST 10 MG TAB PO SCH (09:50)
[2023-08-15] MEDS: PIOGLITAZONE 30 MG TAB PO SCH (09:50)
[2023-08-15] MEDS: SODIUM CHLORIDE 0.9% 1,000 ML IV SCH (09:51)
[2023-08-15] MEDS ORDERED: Potassium Replacement Protocol 1 EACH MISC MISCELLANE PRN ×2 (10:52→21:40)
[2023-08-15] MEDS: POTASSIUM CHLORIDE ER 20 MEQ TAB.ER PO SCH ×2 (11:06→21:58)
--- NOTE | 2023-08-15 11:36 | P.NPCON ---
History of Present Illness - Reason for Consult acute renal failure, chronic renal failure - History of Present Illness Reason for consultation: Acute kidney injury on chronic kidney disease History of present illness: Patient is a 62-year-old male seen in renal consultation for acute kidney injury on chronic kidney disease. Patient has chronic kidney disease stage IIIa with baseline creatinine 1.3-1.4 in April 2023. This admission creatinine was 3.13 and 3.2 today. Patient was sent to the hospital by his primary care physician due to worsening renal function. Patient states he had 4 vaccines in June 2023 and about 2 weeks after that he started noticing bumps all over his body. Patient had a biopsy done which came back positive for high-grade lymphoma. Patient is in the process of seeing hematology oncology. He does admit to taking NSAIDs as needed and last took about a month ago. Patient does have history of diabetes. Denies history of coronary artery disease. Patient's aragon rnal uncle was on hemodialysis. Denies chest pain or shortness of breath. No hematuria or dysuria. CAT scan of the chest abdomen and pelvis done this admission showed axillary adenopathy, subcutaneous soft tissue deposits and nodules, splenomegaly, adrenal nodule and fat stranding of both kidneys with possible lymphomatous involvement. Vital signs are stable. General: No acute distress. HEENT: Head exam is unremarkable. LUNGS: No audible rhonchi or wheezes. HEART: Rate and Rhythm are regular. ABDOMEN: Nontender, obese. EXTREMITITES: No edema. Raised erythematous skin lesions noted. Past Medical History Past Medical History: Asthma, Chest Pain / Angina, Diabetes Mellitus, Hyperlipidemia, Hypertension, Renal Disease, Sleep Apnea/CPAP/BIPAP Additional Past Medical History / Comment(s): uses CPAP, decreased kidney functi on, umbilical hernia currently, recent adm. for chest pain, no problems found per pt. History of Any Multi-Drug Resistant Organisms: None Reported Past Surgical History: Heart Catheterization, Hernia Repair, Orthopedic Surgery Additional Past Surgical History / Comment(s): left shoulder surg., mult. right ankle surgeries Past Anesthesia/Blood Transfusion Reactions: No Reported Reaction Past Psychological History: No Psychological Hx Reported Smoking Status: Former smoker Medications and Allergies Home Medications Medication Instructions Recorded Confirmed Type Metoprolol Tartrate [Lopressor] 50 mg PO BID 11/29/16 08/14/23 History Pioglitazone [Actos] 30 mg PO DAILY 11/29/16 08/14/23 History Simvastatin 40 mg PO HS 11/29/16 08/14/23 History Albuterol Inhaler [Ventolin Hfa 2 puff INHALATION RT-Q6H PRN 04/12/23 08/14/23 History Inhaler] Insulin Degludec [Tresiba 50 units SQ HS 04/12/23 08/14/23 History Flextouch U-200 Pen] Montelukast [Singulair] 10 mg PO DAILY 04/12/23 08/14/23 History Omeprazole 20 mg PO BID 04/12/23 08/14/23 History Budesonide/Glycopyr/Formoterol 2 puff INHALATION RT-DAILY 08/14/23 08/14/23 History [Breztri Aerosphere Inhaler] Tamsulosin [Flomax] 0.4 mg PO DAILY 08/14/23 08/14/23 History Tirzepatide [Mounjaro] 7.5 mg SQ MO 08/14/23 08/14/23 History Allergies Allergy/AdvReac Type Severity Reaction Status Date / Time shellfish derived [Shellfish] Allergy Mild Itching Verified 08/14/23 19:33 Penicillins Allergy Anaphylaxis Verified 08/14/23 19:33 Physical Exam Vitals: Vital Signs Temp Pulse Pulse Resp BP BP Pulse Ox 08/15/23 11:12 97.7 F 90 173/89 98 08/15/23 08:10 80 16 08/15/23 08:00 107 H 16 08/15/23 07:45 96 08/15/23 04:00 109 H 20 163/70 98 08/15/23 00:29 105 H 20 151/80 96 08/14/23 20:12 99 18 143/75 97 08/14/23 17:02 89 20 174/84 98 08/14/23 16:30 98.1 F 100 20 186/94 98 Intake and Output 08/14/23 08/15/23 08/15/23 22:59 06:59 14:59 Output Total 275 Balance -275 Output: Urine 275 Other: Weight 113.398 kg Results - Lab Results Most recent lab results Calcium 8.8 mg/dL (8.4-10.2) 08/15/23 08:24 Magnesium 1.6 mg/dL (1.6-2.3) 08/15/23 08:24 08/14/23 16:51 08/15/23 08:24 Assessment and Plan Plan: Assessment: 1. Acute kidney injury secondary to ATN. Concern for tubular obstruction and ischemia from lymphomatous involvement. Creatinine stable at 3.2. 2. Chronic kidney disease stage IIIa with baseline creatinine 1.3-1.4 in April 2023. Suspect underlying diabetic kidney disease. 3. Recently diagnosed lymphoma. Oncology consulted. Axillary node biopsy pending. 4. Hypokalemia from poor intake. Being replaced. 5. Metabolic acidosis secondary to acute kidney injury on IV fluids. 6. Diabetes mellitus. 7. Benign hypertension. 8. Hypomagnesemia from poor intake. Replaced. Better. Plan: Maintain IV fluids. Check urinalysis. Check renal ultrasound. Check bladder scan to rule out urinary retention. Replace potassium. Add oral bicarb. Avoid nephrotoxins. Continue to monitor renal function and urine output. Thank you for the consultation. I will continue to follow the patient with you during his hospital stay.
[2023-08-15 12:34] LABS: Glucose,Whole Blood 155 mg/dL (70-110)
[2023-08-15] MEDS: SODIUM BICARBONATE TAB 650 MG TAB PO SCH (12:53)
--- NOTE | 2023-08-15 14:17 | P.GSCN ---
History of Present Illness Consult date: 08/15/23 History of present illness: CHIEF COMPLAINT: Worsening kidney function HISTORY OF PRESENT ILLNESS: This is a 62-year-old male with recent diagnosis of lymphoma and has had worsening kidney function. He was told by his PCP to come to the ER for evaluation and IV fluids. 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 Patient reports that he has been having multiple lumps over his face and chest and abdomen since the beginning of July and he is also noted night sweats and weight loss. He had a CT scan chest abdomen pelvis that had shown new right axillary adenopathy measuring up to 3.6 cm. Surgical service has been consulted for biopsy of the lymph node from the axilla to complete his lymphoma diagnosis. PAST MEDICAL HISTORY: See below PAST SURGICAL HISTORY: See below MEDICATIONS: See below ALLERGIES: See below SOCIAL HISTORY: No illicit drug use. REVIEW OF SYSTEMS: CONSTITUTIONAL: Denies fever or chills. HEENT: Denies blurred vision, vision changes, or eye pain. Denies hemoptysis CARDIOVASCULAR: Denies chest pain or pressure. RESPIRATORY: No shortness of breath. GASTROINTESTINAL: See HPI for pertinent findings HEMATOLOGIC: Denies bleeding disorders. GENITOURINARY: Denies any blood in urine or increased urinary frequency. SKIN: Denies pruitis. Denies rash. PHYSICAL EXAM: VITAL SIGNS: Reviewed GENERAL: Well-developed in no acute distress. HEENT: No sclera icterus. Extraocular movements grossly intact. Moist buccal mucosa. Head is atraumatic, normocephalic. No nasal drainage. ABDOMEN: Soft. Nondistended. Umbilical hernia reducible and nontender NEUROLOGIC: Alert and oriented. Cranial nerves II through XII grossly intact. Skin: Patient has multiple lumps noted on his face and abdomen Axilla: Lymph nodes nonpalpable by this examiner LABORATORY DATA: WBC 37 Hgb 11.1 platelets are 49 Sodium is 137 potassium is 3.1 creatinine 3.20 IMAGING: CT scan abdomen pelvis new right axillary adenopathy measuring up to 3.6 cm. Additionally new skin and subcutaneous soft tissue deposits/nodules along the anterior chest and left lateral chest measuring up to 1.2 cm findings suspected to represent lymphoma. New splenomegaly. New right adrenal gland nodule no fat stranding through the renal fat of both kidneys possible lymphedematous in volvement of the kidneys. Moderate sized periumbilical hernia measuring 5.1 cm wide. There is fat stranding in the underlying omental fat behind the hernia sac suggesting inflammation ASSESSMENT: 1. Lymphoma 2. Axillary lymphadenopathy 3. Umbilical hernia reducible 4. Thrombocytopenia PLAN: -Right axillary lymph node biopsy tomorrow with Dr. Ross -Repeat CBC in a.m. and monitor platelet count. Patient may need platelet transfusion before procedure -Potassium being replaced -N.p.o. after midnight Physician Refrigeration Lead note has been reviewed by physician. Signing provider agrees with the documented findings, assessment, and plan of care. I have personally seen and examined the patient, reviewed the COMMUNICATIONS STATION MANAGER /PAs history, exam and MDM and agree with the assessment and plan as written. Based on total visit time, I have performed more than 50% of the visit. As above: Patient presents with diffuse adenopathy and skin nodules. Case discussed with oncology. They are requesting a larger excisional biopsy of affected skin. Will proceed with excisional biopsy. Past Medical History Past Medical History: Asthma, Chest Pain / Angina, Diabetes Mellitus, Hyperlipidemia, Hypertension, Renal Disease, Sleep Apnea/CPAP/BIPAP Additional Past Medical History / Comment(s): uses CPAP, decreased kidney function, umbilical hernia currently, recent adm. for chest pain, no problems found per pt. History of Any Multi-Drug Resistant Organisms: None Reported Past Surgical History: Heart Catheterization, Hernia Repair, Orthopedic Surgery Additional Past Surgical History / Comment(s): left shoulder surg., mult. right ankle surgeries Past Anesthesia/Blood Transfusion Reactions: No Reported Reaction Past Psychological History: No Psychological Hx Reported Smoking Status: Former smoker Medications and Allergies Home Medications Medication Instructions Recorded Confirmed Type Metoprolol Tartrate [Lopressor] 50 mg PO BID 11/29/16 08/14/23 History Pioglitazone [Actos] 30 mg PO DAILY 11/29/16 08/14/23 History Simvastatin 40 mg PO HS 11/29/16 08/14/23 History Albuterol Inhaler [Ventolin Hfa 2 puff INHALATION RT-Q6H PRN 04/12/23 08/14/23 History Inhaler] Insulin Degludec [Tresiba 50 units SQ HS 04/12/23 08/14/23 History Flextouch U-200 Pen] Montelukast [Singulair] 10 mg PO DAILY 04/12/23 08/14/23 History Omeprazole 20 mg PO BID 04/12/23 08/14/23 History Budesonide/Glycopyr/Formoterol 2 puff INHALATION RT-DAILY 08/14/23 08/14/23 History [Breztri Aerosphere Inhaler] Tamsulosin [Flomax] 0.4 mg PO DAILY 08/14/23 08/14/23 History Tirzepatide [Mounjaro] 7.5 mg SQ MO 08/14/23 08/14/23 History Allergies Allergy/AdvReac Type Severity Reaction Status Date / Time shellfish derived [Shellfish] Allergy Mild Itching Verified 08/14/23 19:33 Penicillins Allergy Anaphylaxis Verified 08/14/23 19:33 Surgical - Exam Vital Signs Temp Pulse Resp BP Pulse Ox 98.1 F 100 20 186/94 98 08/14/23 16:30 08/14/23 16:30 08/14/23 16:30 08/14/23 16:30 08/14/23 16:30 Results - Labs 08/16/23 05:58 08/16/23 05:58 Abnormal Lab Results - Last 24 Hours (Table) 08/14/23 08/14/23 08/14/23 Range/Units 16:51 16:51 16:51 WBC 37.1 H (3.8-10.6) k/uL RBC 3.87 L (4.30-5.90) m/uL Hgb 11.1 L (13.0-17.5) gm/dL Hct 33.5 L (39.0-53.0) % Plt Count 49 L (150-450) k/uL Blast Cells % 13 H* % Neutrophils # (Manual) 15.50 H (1.3-7.7) k/uL Lymphocytes # (Manual) 10.02 H (1.0-4.8) k/uL Monocytes # (Manual) 4.45 H (0-1.0) k/uL Metamyelocytes # (Man) 1.48 H (0) k/uL Myelocytes # (Manual) 1.11 H (0) k/uL Blast Cells # (Man) 4.82 H (0) k/uL PT 13.8 H (10.0-12.5) sec INR 1.3 H (<1.2) Potassium (3.5-5.1) mmol/L Chloride (98-107) mmol/L Carbon Dioxide 19 L (22-30) mmol/L BUN 34 H (9-20) mg/dL Creatinine 3.13 H (0.66-1.25) mg/dL Glucose 181 H (74-99) mg/dL Magnesium (1.6-2.3) mg/dL Triglycerides (0.00-149.00) mg/dL VLDL Cholesterol, Calc (5.00-40.00) mg/dL HDL Cholesterol (40.00-60.00) mg/dL 08/14/23 08/14/23 08/15/23 Range/Units 16:51 18:23 08:24 WBC (3.8-10.6) k/uL RBC (4.30-5.90) m/uL Hgb (13.0-17.5) gm/dL Hct (39.0-53.0) % Plt Count (150-450) k/uL Blast Cells % % Neutrophils # (Manual) (1.3-7.7) k/uL Lymphocytes # (Manual) (1.0-4.8) k/uL Monocytes # (Manual) (0-1.0) k/uL Metamyelocytes # (Man) (0) k/uL Myelocytes # (Manual) (0) k/uL Blast Cells # (Man) (0) k/uL PT (10.0-12.5) sec INR (<1.2) Potassium 3.1 L (3.5-5.1) mmol/L Chloride 108 H (98-107) mmol/L Carbon Dioxide 17 L (22-30) mmol/L BUN 36 H (9-20) mg/dL Creatinine 3.20 H (0.66-1.25) mg/dL Glucose 151 H (74-99) mg/dL Magnesium 1.3 L (1.6-2.3) mg/dL Triglycerides 273.00 H (0.00-149.00) mg/dL VLDL Cholesterol, Calc 54.60 H (5.00-40.00) mg/dL HDL Cholesterol 19.10 L (40.00-60.00) mg/dL Diabetes panel 08/14/23 08/14/23 08/15/23 Range/Units 16:51 16:51 08:24 Sodium 138 137 (137-145) mmol/L Potassium 3.7 3.1 L (3.5-5.1) mmol/L Chloride 106 108 H (98-107) mmol/L Carbon Dioxide 19 L 17 L (22-30) mmol/L BUN 34 H 36 H (9-20) mg/dL Creatinine 3.13 H 3.20 H (0.66-1.25) mg/dL Glucose 181 H 151 H (74-99) mg/dL Calcium 9.0 8.8 (8.4-10.2) mg/dL AST 44 40 (17-59) U/L ALT 23 21 (4-49) U/L Alkaline Phosphatase 122 124 (38-126) U/L Total Protein 7.3 6.3 (6.3-8.2) g/dL Albumin 4.4 3.7 (3.5-5.0) g/dL Triglycerides 273.00 H (0.00-149.00) mg/dL HDL Cholesterol 19.10 L (40.00-60.00) mg/dL Calcium panel 08/14/23 08/15/23 Range/Units 16:51 08:24 Calcium 9.0 8.8 (8.4-10.2) mg/dL Albumin 4.4 3.7 (3.5-5.0) g/dL Pituitary panel 08/14/23 08/15/23 Range/Units 16:51 08:24 Sodium 138 137 (137-145) mmol/L Potassium 3.7 3.1 L (3.5-5.1) mmol/L Chloride 106 108 H (98-107) mmol/L Carbon Dioxide 19 L 17 L (22-30) mmol/L BUN 34 H 36 H (9-20) mg/dL Creatinine 3.13 H 3.20 H (0.66-1.25) mg/dL Glucose 181 H 151 H (74-99) mg/dL Calcium 9.0 8.8 (8.4-10.2) mg/dL Adrenal panel 08/14/23 08/15/23 Range/Units 16:51 08:24 Sodium 138 137 (137-145) mmol/L Potassium 3.7 3.1 L (3.5-5.1) mmol/L Chloride 106 108 H (98-107) mmol/L Carbon Dioxide 19 L 17 L (22-30) mmol/L BUN 34 H 36 H (9-20) mg/dL Creatinine 3.13 H 3.20 H (0.66-1.25) mg/dL Glucose 181 H 151 H (74-99) mg/dL Calcium 9.0 8.8 (8.4-10.2) mg/dL Total Bilirubin 0.7 0.7 (0.2-1.3) mg/dL AST 44 40 (17-59) U/L ALT 23 21 (4-49) U/L Alkaline Phosphatase 122 124 (38-126) U/L Total Protein 7.3 6.3 (6.3-8.2) g/dL Albumin 4.4 3.7 (3.5-5.0) g/dL
--- NOTE | 2023-08-15 15:26 | P.CONS ---
History of Present Illness - Reason for Consult Consult date: 08/15/23 lymphoma Requesting physician: Fredrick Gramajo - Chief Complaint weakness, abn labs - History of Present Illness Mr. Roberto is a 62-year-old male we have been asked to see because of a recent diagnosis of aggressive lymphoma. This was diagnosed from a skin biopsy from th e lower right abdomen. Patient states that about 4 to 5 weeks ago he noticed some skin nodules, started out as a few on the abdomen, flesh-colored, then it started changing color, this is the one that ultimately was biopsied by dermatology 2 weeks ago. Patient reports in the last 3 weeks the skin nodules have been multiplying exponentially. They are numerous on the face, upper back and chest, scant nodules on the extremities, some are flesh-colored, most are red, several are black. Patient reports in the last month he had 1 fever of 100.2 Fahrenheit, progressive, he notices a decrease in his appetite, he thinks he is lost about 15 pounds in the last 30 days, he has had decreased stool ou tput. Labs on admit show acute on chronic failure, WBCs 40,000, platelet count 49,000, mild anemia, 13% blasts. Biopsy results suspicious for a T-cell lymphoma but, this was not able to be further classified on the specimen that was available. CTAP shows right axillary LAD, 3.6 cm, generalized ly mphadenopathy, splenomegaly, hepatomegaly, bladder thickening representing possibly chronic cystitis. He has a very remote history of smoking for very short period of time, less than 10 years. He had a colonoscopy in May. Patient states that all of this has happened since June. Review of Systems 14 point review of systems is negative except as stated in HPI Past Medical History Past Medical History: Asthma, Chest Pain / Angina, Diabetes Mellitus, Hyperlipidemia, Hypertension, Renal Disease, Sleep Apnea/CPAP/BIPAP Additional Past Medical History / Comment(s): uses CPAP, decreased kidney f unction, umbilical hernia currently, recent adm. for chest pain, no problems found per pt. History of Any Multi-Drug Resistant Organisms: None Reported Past Surgical History: Heart Catheterization, Hernia Repair, Orthopedic Surgery Additional Past Surgical History / Comment(s): left shoulder surg., mult. right ankle surgeries Past Anesthesia/Blood Transfusion Reactions: No Reported Reaction Past Psychological History: No Psychological Hx Reported Smoking Status: Former smoker Medications and Allergies Home Medications Medication Instructions Recorded Confirmed Type Metoprolol Tartrate [Lopressor] 50 mg PO BID 11/29/16 08/14/23 History Pioglitazone [Actos] 30 mg PO DAILY 11/29/16 08/14/23 History Simvastatin 40 mg PO HS 11/29/16 08/14/23 History Albuterol Inhaler [Ventolin Hfa 2 puff INHALATION RT-Q6H PRN 04/12/23 08/14/23 History Inhaler] Insulin Degludec [Tresiba 50 units SQ HS 04/12/23 08/14/23 History Flextouch U-200 Pen] Montelukast [Singulair] 10 mg PO DAILY 04/12/23 08/14/23 History Omeprazole 20 mg PO BID 04/12/23 08/14/23 History Budesonide/Glycopyr/Formoterol 2 puff INHALATION RT-DAILY 08/14/23 08/14/23 History [Breztri Aerosphere Inhaler] Tamsulosin [Flomax] 0.4 mg PO DAILY 08/14/23 08/14/23 History Tirzepatide [Mounjaro] 7.5 mg SQ MO 08/14/23 08/14/23 History Allergies Allergy/AdvReac Type Severity Reaction Status Date / Time shellfish derived [Shellfish] Allergy Mild Itching Verified 08/14/23 19:33 Penicillins Allergy Anaphylaxis Verified 08/14/23 19:33 Physical Exam Vitals: Vital Signs Temp Pulse Resp BP Pulse Ox 08/15/23 08:10 80 16 08/15/23 08:00 107 H 16 08/15/23 07:45 96 08/15/23 04:00 109 H 20 163/70 98 08/15/23 00:29 105 H 20 151/80 96 08/14/23 20:12 99 18 143/75 97 08/14/23 17:02 89 20 174/84 98 08/14/23 16:30 98.1 F 100 20 186/94 98 Intake and Output 08/14/23 08/15/23 08/15/23 22:59 06:59 14:59 Other: Weight 113.398 kg - Constitutional General appearance: cooperative, mild distress, obese - EENT Eyes: anicteric sclerae, EOMI ENT: hearing grossly normal, normal oropharynx - Neck Neck: lymphadenopathy (left anterior cervical LAD, 5cm) - Respiratory Respiratory: bilateral: diminished - Cardiovascular Rhythm: regular Heart sounds: normal: S1, S2 Abnormal Heart Sounds: no systolic murmur, no diastolic murmur, no rub, no S3 Gallop, no S4 Gallop, no click, no other leg Peripheral Edema: bilateral: None - Gastrointestinal General gastrointestinal: no absent bowel sounds, no decreased bowel sounds, distended, no hepatomegaly, no hyperactive bowel sounds, normal bowel sounds, no organomegaly, no rigid, no scaphoid, no soft, splenomegaly (into LLQ), tenderness, no umbilical hernia, no ventral hernia - Integumentary Nodules located most densely on the face, upper back and chest. They can range in size from 5 to 10 mm, some have converged into a large lesion. The abdomen and the extremities the lesions are more scantly seen. Nothing is draining. Most of the lesions are red, some are flesh-colored, and a few are black. - Neurologic Neurologic: CNII-XII intact - Musculoskeletal Musculoskeletal: generalized weakness, strength equal bilaterally - Psychiatric Psychiatric: A&O x's 3, appropriate affect, intact judgment & insight Results CBC & Chem 7: 08/14/23 16:51 08/15/23 08:24 Labs: Abnormal Lab Results - Last 24 Hours (Table) 08/14/23 08/14/23 08/14/23 Range/Units 16:51 16:51 16:51 WBC 37.1 H (3.8-10.6) k/uL RBC 3.87 L (4.30-5.90) m/uL Hgb 11.1 L (13.0-17.5) gm/dL Hct 33.5 L (39.0-53.0) % Plt Count 49 L (150-450) k/uL PT 13.8 H (10.0-12.5) sec INR 1.3 H (<1.2) Carbon Dioxide 19 L (22-30) mmol/L BUN 34 H (9-20) mg/dL Creatinine 3.13 H (0.66-1.25) mg/dL Glucose 181 H (74-99) mg/dL Magnesium (1.6-2.3) mg/dL Triglycerides (0.00-149.00) mg/dL VLDL Cholesterol, Calc (5.00-40.00) mg/dL HDL Cholesterol (40.00-60.00) mg/dL 08/14/23 08/14/23 Range/Units 16:51 18:23 WBC (3.8-10.6) k/uL RBC (4.30-5.90) m/uL Hgb (13.0-17.5) gm/dL Hct (39.0-53.0) % Plt Count (150-450) k/uL PT (10.0-12.5) sec INR (<1.2) Carbon Dioxide (22-30) mmol/L BUN (9-20) mg/dL Creatinine (0.66-1.25) mg/dL Glucose (74-99) mg/dL Magnesium 1.3 L (1.6-2.3) mg/dL Triglycerides 273.00 H (0.00-149.00) mg/dL VLDL Cholesterol, Calc 54.60 H (5.00-40.00) mg/dL HDL Cholesterol 19.10 L (40.00-60.00) mg/dL Chest x-ray: report reviewed CT scan - abdomen: report reviewed CT scan - chest: report reviewed CT scan - pelvis: report reviewed Assessment and Plan (1) Lymphoma Current Visit: Yes Status: Acute Priority: High Code(s): C85.90 - NON- HODGKIN LYMPHOMA, UNSPECIFIED, UNSPECIFIED SITE SNOMED Code(s): 588353568 (2) Acute kidney injury Current Visit: Yes Status: Acute Priority: High Code(s): N17.9 - ACUTE KIDNEY FAILURE, UNSPECIFIED SNOMED Code(s): 74794044 (3) Leukocytosis Current Visit: Yes Status: Acute Priority: High Code(s): D72.829 - ELEVATED WHITE BLOOD CELL COUNT, UNSPECIFIED SNOMED Code(s): 422575299 (4) Thrombocytopenia Current Visit: Yes Status: Acute Priority: High Code(s): D69.6 - THROMBOCYTOPENIA, UNSPECIFIED SNOMED Code(s): 290707183 Plan: Recent diagnosis of lymphoma from biopsy of skin lesion -Patient's skin lesions began to appear beginning of July 2023. Over the last 3 weeks have multiplied exponentially and now cover his whole body, more dense on the head, neck, upper back and chest, scant on the extremities -Pathology report obtained. Collected 07/25/2023. Neoplasm of uncertain behavior versus melanoma versus granuloma versus lymphoblastic T-cell lymphoma are the differentials. Lesion is positive for CD5 and CD56 immunostains. Additional studies will need to be performed to confirm the diagnosis. -Case discussed with Pathologist. Recommendation is for additional tissue for additional studies to be performed as well as flow cytometry. -Case was discussed with Surgeon who will be performing skin lesion excisions. Plan is for this to be done tomorrow. -Optimally, patients with lymphoma should have staging PET scan prior to beginning treatment but, urgency of treatment is going to have to be considered All of the above was also reviewed with the patient who is agreeable to proceed with additional biopsies and testing as needed.
[2023-08-15 16:06] LABS: INR 1.3 (<1.2); Partial Thromboplastin Time 26.9 sec (22.0-30.0); Prothrombin Time 13.7 sec (10.0-12.5)
[2023-08-15 17:30] LABS: Glucose,Whole Blood 189 mg/dL (70-110)
[2023-08-15 17:34] LABS: Appearance,Urine Turbid (Clear); Bilirubin,Urine Negative (Negative); Blood,Urine Moderate (Negative); Color,Urine Yellow; Glucose,Urine (UA) 3+ (Negative); Ketones,Urine Negative (Negative); Leukocyte Esterase,Urine Negative (Negative); Mucus,Urine Rare /hpf; Nitrite,Urine Negative (Negative); PH, Urine 5.5 (5.0-8.0); Protein,Urine 2+ (Negative); RBC,Urine >182 /hpf (0-5); Specific Gravity,Urine 1.017 (1.001-1.035); Urobilinogen,Urine <2.0 mg/dL (<2.0)
[2023-08-15] MEDS: LEVOFLOXACIN 500MG-D5W PMX 500 MG in DEXTROSE/WATER 1 100ML.BAG IVPB SCH (18:20)
[2023-08-15 20:21] LABS: Glucose,Whole Blood 159 mg/dL (70-110)
[2023-08-15] MEDS: ATORVASTATIN 20 MG TAB PO SCH (21:35)
[2023-08-15] MEDS: INSULIN DETEMIR (LEVEMIR) 100 UNIT/ML SYR SQ SCH (21:35)
--- NOTE | 2023-08-15 21:54 | P.PN ---
Subjective Progress Note Date: 08/15/23 Chief Complaint: Sepsis leukocytosis, thrombocytopenia, newly diagnosed left aggressive lymp 62-year-old gentleman went off my office patient was known for the last 10 years with past medical history of type 2 diabetes, chronic kidney disease, atherosclerotic heart disease, hypertension, hyperlipidemia, severe obstructive sleep apnea, recurrent asthma, severe neuropathy mild obesity who had seen dermatology over 2 weeks ago apparently for reactive dermatitis all over his body looks like small tiny sarcoma or granuloma but has been getting much worse. Ended up having biopsy at Dr. Reyna's office 2 weeks ago and were waiting for the result. Patient was seen in our office for last 10 days with progressive worsening symptoms consistent with severe tiredness fatigue and overall not feeling well surprisingly he started having an acute kidney injury with acute tubular necrosis with worsening kidney function creatinine climbing up from 1.6- 3.6 and short period of time. Had an appointment to see nephrology on Sunday for the last blood test has on last week shows reactive leukocytosis with significant thrombocytopenia and mild anemia repeat CBC today shows his white blood cell 40,000 with platelet count around 40,000 as well. 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 With a high suspicion for sepsis and worsening progressive acute kidney failure and possible of sepsis patient in the coming to the emergency department for was seen and evaluated blood culture was initiated repeat blood test and patient ended up going for CT of the abdomen and pelvis surprisingly shows new right axillary adenopathy measuring 3.6 cm with multiple lymphadenopathy all over also had splenomegaly with hepatomegaly and adrenal adenoma as well also finding consistent with lymph node all over consistent with lymphoma and circumferential bladder wall thickening and might represent chronic cystitis. We decided to admit patient to the hospital at this point specially declining kidney function will be seen oncology probably develop pathway to ask general surgery to do biopsy from the axillary lymph node for fast diagnosis as well to decide further management also gentle hydration. Repeat kidney function patient will be seen nephrology as inpatient as well if worsening symptoms patient might be close to need dialysis as well. 08/15/2023: He was seen today by oncology revealed a finding consistent with lymphoma patient will have axilla lymph node for biopsy done by general surgery tomorrow also oncology are planning to do PET scan prior to any treatment or management as for potential of bone marrow biopsy needs to be determined. Nephrology seen patient agree this is an acute tubular necrosis most likely ischemic from lymphomatosis involvement with significant increase in creatinine which may patient has stage IIIa chronic kidney disease. Agree to continue hydration check UA check renal ultrasound and continue to scan the bladder will add oral bicarbonate and avoid any nephrotoxic agent. Again general surgery seen patient and agree to do right axilla lymph node biopsy tomorrow continue to watch his blood level. Review of Systems: CONSTITUTIONAL: Mildly overweight does not look comfortable no major respiratory distress. EYES: No icterus sclerae, no conjunctivitis. EARS, NOSE, MOUTH, THROAT, and FACE: No sore throat, lymphadenopathy, carotid bruits or deformity. RESPIRATORY: Mild shortness of breath no wheezes. CARDIOVASCULAR: No CP, Palpitation, PND, Orthopnea, or angina. GASTROINTESTINAL: Slight abdominal discomfort with ventral hernia no nausea or vomiting slight change in bowel habit as well. GENITOURINARY: Decrease in kidney function with less frequent urination without any hematuria at this point. INTEGUMENT/BREAST: Lymph node enlargement. HEMATOLOGIC/LYMPHATIC: Lymph node enlargement with mild anemia. MUSCULOSKELTAL: Negative for Myalgia or arthralgia. NEURLOGICAL: No LOC, Sz or syncope, blurred vision dizziness or abnormality.. BEHAVIORAL/PSYCH: Negative. ENDOCRINE: Negative. Physical examination: General Appearance: Alert, slightly overweight, does not look comfortable but no respiratory distress. Neck HEENT: Supple with slight lymph node enlargement without any thyroid enlargement. Lungs: Clear to auscultation without crackles slight rhonchi no wheezes. Chest Wall: Chest wall normal expansion with deep inspiration no tenderness and no deformity was found on exam, no costochondral pain or discomfort. Heart: Regular rate and rhythm, S1, S2 normal, no murmur, rub or gallop. Back: Symmetric, no curvature, ROM normal, no CVA tenderness. Abdomen: Positive ventral hernia, slightly enlarged spleen, mildly hepatomegaly with mild discomfort in the mid abdominal region area. Extremities: Extremities normal, atraumatic, no cyanosis or edema. Pulses: 2+ and symmetric. Skin: Small granulated rash all over his body including the face and neck the chest wall area more like reactive dermatitis Neurologic: Alert oriented x3 cranial nerves II through XII intact, no motor deficit, no abnormal balance or gait. Assessment and plan: 1 newly diagnosis of aggressive lymphoma: Lymph node biopsy from the right axilla is planned for tomorrow, PET scan will be planned as an outpatient patient had seen oncology no plan for bone marrow biopsy at this point. 2 possible sepsis: With significant leukocytosis and thrombocytopenia, blood culture will be done patient was started on Levaquin initially because of his allergy waiting for the culture might consult infectious disease as well. 3 acute kidney injury with acute tubular necrosis: Continue hydration and repeat lab tomorrow. 4 severe thrombocytopenia most likely reactive to either sepsis or his lymphoma may be there is any involvement of his lymphoma in the bone marrow especially if this is an aggressive type of lymphoma causing the suppressive bone marrow to have thrombocytopenia. Again will watch CBC daily and patient might require bone marrow biopsy. 5 type 2 diabetes: Has been on Mounjaro, Actos, Tresiba along with short acting insulin resume medication along with Accu-Chek with sliding scale coverage. 6 chronic neuropathy: Has not been on any medication lately but slightly bit worse. 7 chronic asthma has been seen pulmonary regular basis remain on albuterol and budesonide. 8 severe BPH: Has been on Flomax 0.4 mg daily. 9 hyperlipidemia will continue simvastatin 40 mg a day. 10 atherosclerotic heart disease has been seeing cardiology last stress test was from April last year. 11 hiatal hernia with worsening symptoms of GERD: Remain on omeprazole 20 mg twice a day on regular basis. Objective - Vital Signs Vital signs: Vital Signs Temp 98.1 F 08/14/23 16:30 Pulse 109 H 08/15/23 04:00 Resp 20 08/15/23 04:00 BP 163/70 08/15/23 04:00 Pulse Ox 98 08/15/23 04:00 FiO2 Intake & Output 08/14/23 08/14/23 08/15/23 06:59 18:59 06:59 Weight 113.398 kg - Labs CBC & Chem 7: 08/14/23 16:51 08/15/23 19:41 Labs: Abnormal Lab Results - Last 24 Hours (Table) 08/14/23 08/14/23 08/14/23 Range/Units 16:51 16:51 16:51 WBC 37.1 H (3.8-10.6) k/uL RBC 3.87 L (4.30-5.90) m/uL Hgb 11.1 L (13.0-17.5) gm/dL Hct 33.5 L (39.0-53.0) % Plt Count 49 L (150-450) k/uL PT 13.8 H (10.0-12.5) sec INR 1.3 H (<1.2) Carbon Dioxide 19 L (22-30) mmol/L BUN 34 H (9-20) mg/dL Creatinine 3.13 H (0.66-1.25) mg/dL Glucose 181 H (74-99) mg/dL Magnesium (1.6-2.3) mg/dL 08/14/23 Range/Units 18:23 WBC (3.8-10.6) k/uL RBC (4.30-5.90) m/uL Hgb (13.0-17.5) gm/dL Hct (39.0-53.0) % Plt Count (150-450) k/uL PT (10.0-12.5) sec INR (<1.2) Carbon Dioxide (22-30) mmol/L BUN (9-20) mg/dL Creatinine (0.66-1.25) mg/dL Glucose (74-99) mg/dL Magnesium 1.3 L (1.6-2.3) mg/dL
[2023-08-16 06:25] LABS: HCT 31.8 % (39.0-53.0); HGB 10.6 gm/dL (13.0-17.5); MCH 29.1 pg (25.0-35.0); MCHC 33.3 g/dL (31.0-37.0); MCV 87.4 fL (80.0-100.0); Mean Platelet Volume 9.3; RBC 3.64 m/uL (4.30-5.90); RDW 14.8 % (11.5-15.5)
[2023-08-16 06:35] LABS: ALT 20 U/L (4-49); AST 38 U/L (17-59); African American GFR (CKD) 20 (>60 ml/min/1.73 sqM); Albumin 3.6 g/dL (3.5-5.0); Albumin/Globulin Ratio 1.4; Alkaline Phosphatase 112 U/L (38-126); Anion Gap 10 mmol/L; Blood Urea Nitrogen 42 mg/dL (9-20); Calcium 8.7 mg/dL (8.4-10.2); Carbon Dioxide 18 mmol/L (22-30); Chloride 109 mmol/L (98-107); Globulin 2.5 g/dL; Glucose 137 mg/dL (74-99); Magnesium 1.6 mg/dL (1.6-2.3); Non-African American GFR(CKD) 17 (>60 ml/min/1.73 sqM); Potassium 3.8 mmol/L (3.5-5.1); Sodium 137 mmol/L (137-145); Total Bilirubin 0.6 mg/dL (0.2-1.3); Total Protein 6.1 g/dL (6.3-8.2)
[2023-08-16 06:56] LABS: Band Neutrophils % 11 %; Neutrophils % (M) 25 %; Nucleated Red Blood Cells 2 /100 WBC (0-0); Total Cells Counted 200
[2023-08-16 06:57] LABS: Blast Cells # (M) 2.47 k/uL (0); Eosinophils # (M) 0.31 k/uL (0-0.7); Lymphocytes # (M) 9.89 k/uL (1.0-4.8); Monocytes # (M) 7.11 k/uL (0-1.0); Platelet Count 38 k/uL (150-450); WBC 30.9 k/uL (3.8-10.6)
[2023-08-16 07:23] LABS: Glucose,Whole Blood 143 mg/dL (70-110)
--- NOTE | 2023-08-16 11:36 | P.PN ---
Subjective Principal diagnosis: Patient is seen in follow-up for acute kidney injury on chronic kidney disease. Creatinine 3.63 today. Receiving IV fluids. Has been voiding. Denies gross hematuria. Vital signs are stable. General: No acute distress. HEENT: Head exam is unremarkable. LUNGS: No audible rhonchi or wheezes. HEART: Rate and Rhythm are regular. ABDOMEN: Obese, nontender. EXTREMITITES: No edema. Skin lesions noted. Objective - Vital Signs Vital signs: Vital Signs Temp 98.7 F 08/16/23 07:43 Pulse 108 H 08/16/23 08:14 Resp 17 08/16/23 07:43 BP 185/101 08/16/23 07:43 Pulse Ox 93 L 08/16/23 08:05 FiO2 Intake & Output 08/15/23 08/16/23 08/16/23 18:59 06:59 18:59 Output Total 665 Balance -665 Weight 113.398 kg Output: Urine 575 Post Void Residual 90 Other: Voiding Method Urinal # Voids 3 - Labs CBC & Chem 7: 08/16/23 05:58 08/16/23 05:58 Labs: Abnormal Lab Results - Last 24 Hours (Table) 08/14/23 08/15/23 08/15/23 Range/Units 16:51 12:32 15:14 WBC (3.8-10.6) k/uL RBC (4.30-5.90) m/uL Hgb (13.0-17.5) gm/dL Hct (39.0-53.0) % Plt Count (150-450) k/uL Blast Cells % 13 H* % Neutrophils # (Manual) (1.3-7.7) k/uL Lymphocytes # (Manual) (1.0-4.8) k/uL Monocytes # (Manual) (0-1.0) k/uL Blast Cells # (Man) (0) k/uL Nucleated RBCs (0-0) /100 WBC PT 13.7 H (10.0-12.5) sec INR 1.3 H (<1.2) Chloride (98-107) mmol/L Carbon Dioxide (22-30) mmol/L BUN (9-20) mg/dL Creatinine (0.66-1.25) mg/dL Glucose (74-99) mg/dL POC Glucose (mg/dL) 155 H (70-110) mg/dL Total Protein (6.3-8.2) g/dL Urine Protein (Negative) Urine Glucose (UA) (Negative) Urine Blood (Negative) Urine RBC (0-5) /hpf Urine Mucus (None) /hpf 08/15/23 08/15/23 08/15/23 Range/Units 16:20 17:29 20:19 WBC (3.8-10.6) k/uL RBC (4.30-5.90) m/uL Hgb (13.0-17.5) gm/dL Hct (39.0-53.0) % Plt Count (150-450) k/uL Blast Cells % % Neutrophils # (Manual) (1.3-7.7) k/uL Lymphocytes # (Manual) (1.0-4.8) k/uL Monocytes # (Manual) (0-1.0) k/uL Blast Cells # (Man) (0) k/uL Nucleated RBCs (0-0) /100 WBC PT (10.0-12.5) sec INR (<1.2) Chloride (98-107) mmol/L Carbon Dioxide (22-30) mmol/L BUN (9-20) mg/dL Creatinine (0.66-1.25) mg/dL Glucose (74-99) mg/dL POC Glucose (mg/dL) 189 H 159 H (70-110) mg/dL Total Protein (6.3-8.2) g/dL Urine Protein 2+ H (Negative) Urine Glucose (UA) 3+ H (Negative) Urine Blood Moderate H (Negative) Urine RBC >182 H (0-5) /hpf Urine Mucus Rare H (None) /hpf 08/16/23 08/16/23 08/16/23 Range/Units 05:58 05:58 07:12 WBC 30.9 H (3.8-10.6) k/uL RBC 3.64 L (4.30-5.90) m/uL Hgb 10.6 L (13.0-17.5) gm/dL Hct 31.8 L (39.0-53.0) % Plt Count 38 L (150-450) k/uL Blast Cells % 8 H* % Neutrophils # (Manual) 11.10 H (1.3-7.7) k/uL Lymphocytes # (Manual) 9.89 H (1.0-4.8) k/uL Monocytes # (Manual) 7.11 H (0-1.0) k/uL Blast Cells # (Man) 2.47 H (0) k/uL Nucleated RBCs 2 H (0-0) /100 WBC PT (10.0-12.5) sec INR (<1.2) Chloride 109 H (98-107) mmol/L Carbon Dioxide 18 L (22-30) mmol/L BUN 42 H (9-20) mg/dL Creatinine 3.63 H (0.66-1.25) mg/dL Glucose 137 H (74-99) mg/dL POC Glucose (mg/dL) 143 H (70-110) mg/dL Total Protein 6.1 L (6.3-8.2) g/dL Urine Protein (Negative) Urine Glucose (UA) (Negative) Urine Blood (Negative) Urine RBC (0-5) /hpf Urine Mucus (None) /hpf Microbiology - Last 24 Hours (Table) 08/14/23 18:23 Blood Culture - Preliminary Blood 08/14/23 18:15 Blood Culture - Preliminary Blood Assessment and Plan Plan: Assessment: 1. Acute kidney injury secondary to ATN. Concern for tubular obstruction and ischemia from lymphomatous involvement. Creatinine up to 3.63 today. Kidney ultrasound from August 08, 2023 showed normal-sized kidneys without evidence of hydronephrosis. UA positive for protein and hematuria. 2. Chronic kidney disease stage IIIa with baseline creatinine 1.3-1.4 in April 2023. Suspect underlying diabetic kidney disease. 3. Recently diagnosed malignancy. Lymphoma versus melanoma versus other. Oncology following. Axillary node biopsy pending. 4. Hypokalemia from poor intake. Replaced. Better. 5. Metabolic acidosis secondary to acute kidney injury on IV fluids. Stable. On oral bicarb. 6. Diabetes mellitus. 7. Benign hypertension. Blood pressure high. 8. Hypomagnesemia from poor intake. Replaced. Better. 9. Thrombocytopenia. Platelet transfusion pending. Plan: Maintain IV fluids. Decrease rate to 50 cc an hour. Add amlodipine 5 mg twice daily. Add scheduled hydralazine. Hold for systolic blood pressure less than 120. Quantify proteinuria. Check serologies. Avoid nephrotoxins. Continue to monitor renal function and urine output. Continue to assess daily for need for renal replacement therapy. No urgency at this time. May need kidney biopsy for definitive diagnosis. Discussed with patient.
[2023-08-16 12:01] LABS: Glucose,Whole Blood 141 mg/dL (70-110)
[2023-08-16] MEDS: hydrALAZINE HCL 50 MG TAB PO SCH (12:01)
[2023-08-16] MEDS: amLODIPine 5 MG TAB PO SCH (12:01)
[2023-08-16 13:39] LABS: Creatinine,Urine Random 170.2 mg/dL
[2023-08-16 13:52] LABS: Protein/Creatinine Ratio,Urine 1.645
[2023-08-16] MEDS: LACTATED RINGERS 1,000 ML IV ONE ×2 (16:50→17:19)
[2023-08-16] MEDS ORDERED: LIDOCAINE 1% INJ 10MG/ML (20 ML MDV) ONE (16:52)
[2023-08-16] MEDS ORDERED: MIDAZOLAM 2 MG/2 ML VIAL ONE (16:52)
[2023-08-16] MEDS ORDERED: fentaNYL (PF) 50 MCG/ML 2 ML AMP ONE (16:52)
[2023-08-16] MEDS ORDERED: PROPOFOL 10 MG/ML 20 ML VIAL IV ONE (16:52)
[2023-08-16] MEDS: LIDOCAINE 2%-EPI 1:100,000 20 ML VIAL SQ ONE ×2 (17:16)
[2023-08-16 17:54] LABS: Glucose,Whole Blood 122 mg/dL (70-110)
--- NOTE | 2023-08-16 18:06 | P.OP ---
Date of Procedure: 08/16/23 Procedure(s) Performed: PREOPERATIVE DIAGNOSIS: Multiple skin nodules POSTOPERATIVE DIAGNOSIS: Same PROCEDURE: Excision left upper back skin nodule/lesion SURGEON: Vandana EBL: 5 mL ANESTHESIA: Sedation and local COMPLICATIONS: None OPERATIVE PROCEDURE: Patient placed in the right decubitus position. The pat ient was sedated per anesthesia. The left upper back was prepped and draped sterilely. A elliptical incision was made removing a conglomerate of multiple skin nodules. This specimen measured 4.5 x 1.5 cm. Subcutaneous tissues divided using electrocautery. Bleeding controlled with cautery. Subcutaneous layer closed with interrupted 3-0 Vicryl sutures. Skin closed with running 4-0 nylon suture. Sterile dressing applied. Spoke with pathology after the procedure. Specimen sent in 2 pieces one in formalin and one fresh to be placed in flow cytometry media. Specimens both sent to lab. DISPOSITION: Stable to recovery room
--- NOTE | 2023-08-16 18:12 | P.PN ---
Subjective Progress Note Date: 08/16/23 Principal diagnosis: Lymphoma In f/u today pt has no new c/o, no fevers, vomiting, progressive SOB, abd pain, acute changes in bowel or bladder. Objective - Vital Signs Vital signs: Vital Signs Temp 98.8 F 08/16/23 17:34 Pulse 114 H 08/16/23 17:46 Resp 16 08/16/23 17:46 BP 159/69 08/16/23 17:46 Pulse Ox 94 L 08/16/23 17:46 FiO2 Intake & Output 08/15/23 08/16/23 08/16/23 18:59 06:59 18:59 Intake Total 783 Output Total 665 5 Balance -665 778 Weight 113.398 kg Intake: IV 500 Oral 0 Blood Product 283 Platelet Pheresis Pas 283 Psoralen Unit [id number] Output: Urine 575 Post Void Residual 90 Estimated Blood Loss 5 Other: Voiding Method Urinal # Voids 3 2 - Constitutional General appearance: Present: cooperative, no acute distress, obese - EENT Eyes: Present: anicteric sclerae, EOMI ENT: Present: hearing grossly normal - Neck Neck: Present: lymphadenopathy - Respiratory Respiratory: bilateral: CTA - Cardiovascular Rhythm: regular Heart sounds: normal: S1, S2 Abnormal Heart Sounds: Absent: systolic murmur, diastolic murmur, rub, S3 Gallop, S4 Gallop, click, other - Integumentary Integumentary Comment(s): Nodules on the visible skin, same as documented from yesterday - Neurologic Neurologic: Present: CNII-XII intact - Musculoskeletal Musculoskeletal: Present: strength equal bilaterally - Psychiatric Psychiatric: Present: A&O x's 3, appropriate affect, intact judgment & insight - Labs CBC & Chem 7: 08/16/23 05:58 08/16/23 05:58 Labs: Abnormal Lab Results - Last 24 Hours (Table) 08/14/23 08/15/23 08/16/23 Range/Units 16:51 20:19 05:58 WBC (3.8-10.6) k/uL RBC (4.30-5.90) m/uL Hgb (13.0-17.5) gm/dL Hct (39.0-53.0) % Plt Count (150-450) k/uL Blast Cells % % Neutrophils # (Manual) (1.3-7.7) k/uL Lymphocytes # (Manual) (1.0-4.8) k/uL Monocytes # (Manual) (0-1.0) k/uL Blast Cells # (Man) (0) k/uL Nucleated RBCs (0-0) /100 WBC Pathologist Review See comment A Chloride 109 H (98-107) mmol/L Carbon Dioxide 18 L (22-30) mmol/L BUN 42 H (9-20) mg/dL Creatinine 3.63 H (0.66-1.25) mg/dL Glucose 137 H (74-99) mg/dL POC Glucose (mg/dL) 159 H (70-110) mg/dL Total Protein 6.1 L (6.3-8.2) g/dL 08/16/23 08/16/23 08/16/23 Range/Units 05:58 07:12 11:56 WBC 30.9 H (3.8-10.6) k/uL RBC 3.64 L (4.30-5.90) m/uL Hgb 10.6 L (13.0-17.5) gm/dL Hct 31.8 L (39.0-53.0) % Plt Count 38 L (150-450) k/uL Blast Cells % 8 H* % Neutrophils # (Manual) 11.10 H (1.3-7.7) k/uL Lymphocytes # (Manual) 9.89 H (1.0-4.8) k/uL Monocytes # (Manual) 7.11 H (0-1.0) k/uL Blast Cells # (Man) 2.47 H (0) k/uL Nucleated RBCs 2 H (0-0) /100 WBC Pathologist Review Chloride (98-107) mmol/L Carbon Dioxide (22-30) mmol/L BUN (9-20) mg/dL Creatinine (0.66-1.25) mg/dL Glucose (74-99) mg/dL POC Glucose (mg/dL) 143 H 141 H (70-110) mg/dL Total Protein (6.3-8.2) g/dL Microbiology - Last 24 Hours (Table) 08/14/23 18:23 Blood Culture - Preliminary Blood 08/14/23 18:15 Blood Culture - Preliminary Blood Assessment and Plan (1) Lymphoma Current Visit: Yes Status: Acute Priority: High Code(s): C85.90 - NON- HODGKIN LYMPHOMA, UNSPECIFIED, UNSPECIFIED SITE SNOMED Code(s): 765035261 (2) Acute kidney injury Current Visit: Yes Status: Acute Priority: High Code(s): N17.9 - ACUTE KIDNEY FAILURE, UNSPECIFIED SNOMED Code(s): 64502770 (3) Leukocytosis Current Visit: Yes Status: Acute Priority: High Code(s): D72.829 - ELEVATED WHITE BLOOD CELL COUNT, UNSPECIFIED SNOMED Code(s): 621749510 (4) Thrombocytopenia Current Visit: Yes Status: Acute Priority: High Code(s): D69.6 - THROMBOC YTOPENIA, UNSPECIFIED SNOMED Code(s): 011214552 Plan: 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 High grade. -Patient's skin lesions began to appear beginning of July 2023. Over the last 3 weeks have multiplied exponentially and now cover his whole body, more dense on the head, neck, upper back and chest, scant on the extremities -Pathology report obtained. Collected 07/25/2023. Neoplasm of uncertain behavior versus melanoma versus granuloma versus lymphoblastic T-cell lymphoma are the differentials. Lesion is positive for CD5 and CD56 immunostains. Additional studies will need to be performed to confirm the diagnosis. -Surgery collecting additional tissue today for additional studies to be performed as well as flow cytometry. -STAT tumor lysis labs, rule out spontaneous TLS. -100mg allopurinol ordered. -Optimally, patients with lymphoma should have staging PET scan prior to beginning treatment but, urgency of treatment is going to have to be considered -Will cont to f/u daily. Treatment recommendations as soon as enough info available. Making referral to Dr. Brannon at [facility]. Hope to get pt in next week to be assessed -Worsening renal function-Nephrology following and treating
[2023-08-16 18:52] LABS: Phosphorus 5.2 mg/dL (2.5-4.5); Uric Acid 12.7 mg/dL (3.5-8.5)
[2023-08-16 18:57] LABS: Complement C3 96.2 mg/dL (80.0-207.0)
[2023-08-16 19:35] LABS: Hepatitis A Antibody IgM Nonreactive; Hepatitis B Core IgM Nonreactive; Hepatitis B Surface Antigen Nonreactive; Hepatitis C IgG Antibody Nonreactive
[2023-08-16 20:01] LABS: Albumin 3.8 g/dL (3.8-4.9); Protein, Total 6.2 g/dL (6.2-8.2)
[2023-08-16] MEDS: RASBURICASE 6 MG in SODIUM CHLORIDE 0.9% 46 ML IV ONE (20:08)
[2023-08-16 20:26] LABS: Glucose,Whole Blood 259 mg/dL (70-110)
--- NOTE | 2023-08-16 20:58 | P.PN ---
Subjective Progress Note Date: 08/16/23 Chief Complaint: Sepsis leukocytosis, thrombocytopenia, newly diagnosed left aggressive lymp 62-year-old gentleman went off my office patient was known for the last 10 years with past medical history of type 2 diabetes, chronic kidney disease, atherosclerotic heart disease, hypertension, hyperlipidemia, severe obstructive sleep apnea, recurrent asthma, severe neuropathy mild obesity who had seen dermatology over 2 weeks ago apparently for reactive dermatitis all over his body looks like small tiny sarcoma or granuloma but has been getting much worse. Ended up having biopsy at Dr. Reyna's office 2 weeks ago and were waiting for the result. Patient was seen in our office for last 10 days with progressive worsening symptoms consistent with severe tiredness fatigue and overall not feeling well surprisingly he started having an acute kidney injury with acute tubular necrosis with worsening kidney function creatinine climbing up from 1.6- 3.6 and short period of time. Had an appointment to see nephrology on Sunday for the last blood test has on last week shows reactive leukocytosis with significant thrombocytopenia and mild anemia repeat CBC today shows his white blood cell 40,000 with platelet count around 40,000 as well. 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 With a high suspicion for sepsis and worsening progressive acute kidney failure and possible of sepsis patient in the coming to the emergency department for was seen and evaluated blood culture was initiated repeat blood test and patient ended up going for CT of the abdomen and pelvis surprisingly shows new right axillary adenopathy measuring 3.6 cm with multiple lymphadenopathy all over also had splenomegaly with hepatomegaly and adrenal adenoma as well also finding consistent with lymph node all over consistent with lymphoma and circumferential bladder wall thickening and might represent chronic cystitis. We decided to admit patient to the hospital at this point specially declining kidney function will be seen oncology probably develop pathway to ask general surgery to do biopsy from the axillary lymph node for fast diagnosis as well to decide further management also gentle hydration. Repeat kidney function patient will be seen nephrology as inpatient as well if worsening symptoms patient might be close to need dialysis as well. 08/15/2023: He was seen today by oncology revealed a finding consistent with lymphoma patient will have axilla lymph node for biopsy done by general surgery tomorrow also oncology are planning to do PET scan prior to any treatment or management as for potential of bone marrow biopsy needs to be determined. Nephrology seen patient agree this is an acute tubular necrosis most likely ischemic from lymphomatosis involvement with significant increase in creatinine which may patient has stage IIIa chronic kidney disease. Agree to continue hydration check UA check renal ultrasound and continue to scan the bladder will add oral bicarbonate and avoid any nephrotoxic agent. Again general surgery seen patient and agree to do right axilla lymph node biopsy tomorrow continue to watch his blood level. 08-16-2023: Is doing well and is scheduled for biopsy with Dr. Galloway today, his white blood cell is down to 30,000 platelets are down to 38,000 as well his creatinine is much worse at 3.63 with bun of 42, his acute kidney injury has declined more mostly related to ischemic change from lymphomatosis involvement causing acute tubular necrosis. As for his lymphoma still been still be careful with oncology waiting for the final culture the patient will be going for PET scan possibly in the next few days before deciding the course of treatment. Review of Systems: CONSTITUTIONAL: Mildly overweight does not look comfortable no major respiratory distress. EYES: No icterus sclerae, no conjunctivitis. EARS, NOSE, MOUTH, THROAT, and FACE: No sore throat, lymphadenopathy, carotid bruits or deformity. RESPIRATORY: Mild shortness of breath no wheezes. CARDIOVASCULAR: No CP, Palpitation, PND, Orthopnea, or angina. GASTROINTESTINAL: Slight abdominal discomfort with ventral hernia no nausea or vomiting slight change in bowel habit as well. GENITOURINARY: Decrease in kidney function with less frequent urination without any hematuria at this point. INTEGUMENT/BREAST: Lymph node enlargement. HEMATOLOGIC/LYMPHATIC: Lymph node enlargement with mild anemia. MUSCULOSKELTAL: Negative for Myalgia or arthralgia. NEURLOGICAL: No LOC, Sz or syncope, blurred vision dizziness or abnormality.. BEHAVIORAL/PSYCH: Negative. ENDOCRINE: Negative. Physical examination: General Appearance: Alert, slightly overweight, does not look comfortable but no respiratory distress. Neck HEENT: Supple with slight lymph node enlargement without any thyroid enlar gement. Lungs: Clear to auscultation without crackles slight rhonchi no wheezes. Chest Wall: Chest wall normal expansion with deep inspiration no tenderness and no deformity was found on exam, no costochondral pain or discomfort. Heart: Regular rate and rhythm, S1, S2 normal, no murmur, rub or gallop. Back: Symmetric, no curvature, ROM normal, no CVA tenderness. Abdomen: Positive ventral hernia, slightly enlarged spleen, mildly hepatomegaly with mild discomfort in the mid abdominal region area. Extremities: Extremities normal, atraumatic, no cyanosis or edema. Pulses: 2+ and symmetric. Skin: Small granulated rash all over his body including the face and neck the chest wall area more like reactive dermatitis Neurologic: Alert oriented x3 cranial nerves II through XII intact, no motor deficit, no abnormal balance or gait. Assessment and plan: 1 newly diagnosis of aggressive lymphoma: Lymph node biopsy from the right axilla is planned for tomorrow, PET scan will be planned as an outpatient patient had seen oncology no plan for bone marrow biopsy at this point. 2 possible sepsis: With significant leukocytosis and thrombocytopenia, blood culture will be done patient was started on Levaquin initially because of his allergy waiting for the culture might consult infectious disease as well. All cultures are negative so far. 3 acute kidney injury with acute tubular necrosis: Mostly from tubular obstruction and ischemia from lymphomatosis involvement, still been hydrated well. Avoiding any nephrotoxic agents at this point still see nephrology does not require any hemodialysis yet. 4 severe thrombocytopenia most likely reactive to either sepsis or his lymphoma may be there is any involvement of his lymphoma in the bone marrow especially if this is an aggressive type of lymphoma causing the suppressive bone marrow to have thrombocytopenia. Patient might require platelet transfusion and prepare for his biopsy. 5 type 2 diabetes: Has been on Mounjaro, Actos, Tresiba along with short acting insulin resume medication along with Accu-Chek with sliding scale coverage. 6 chronic neuropathy: Has not been on any medication lately but slightly bit worse. 7 chronic asthma has been seen pulmonary regular basis remain on albuterol and budesonide. 8 severe BPH: Has been on Flomax 0.4 mg daily. 9 hyperlipidemia will continue simvastatin 40 mg a day. 10 atherosclerotic heart disease has been seeing cardiology last stress test was from April last year. 11 hiatal hernia with worsening symptoms of GERD: Remain on omeprazole 20 mg twice a day on regular basis. Objective - Vital Signs Vital signs: Vital Signs Temp 98.6 F 08/16/23 02:00 Pulse 103 H 08/16/23 02:00 Resp 18 08/16/23 02:00 BP 175/83 08/16/23 02:00 Pulse Ox 91 L 08/16/23 02:00 FiO2 Intake & Output 08/15/23 08/15/23 08/16/23 06:59 18:59 06:59 Output Total 665 Balance -665 Weight 113.398 kg Output: Urine 575 Post Void Residual 90 Other: Voiding Method Urinal # Voids 3 - Labs CBC & Chem 7: 08/16/23 05:58 08/16/23 05:58 Labs: Abnormal Lab Results - Last 24 Hours (Table) 08/14/23 08/14/23 08/15/23 Range/Units 16:51 16:51 08:24 WBC 37.1 H (3.8-10.6) k/uL RBC 3.87 L (4.30-5.90) m/uL Hgb 11.1 L (13.0-17.5) gm/dL Hct 33.5 L (39.0-53.0) % Plt Count 49 L (150-450) k/uL Blast Cells % 13 H* % Neutrophils # (Manual) 15.50 H (1.3-7.7) k/uL Lymphocytes # (Manual) 10.02 H (1.0-4.8) k/uL Monocytes # (Manual) 4.45 H (0-1.0) k/uL Metamyelocytes # (Man) 1.48 H (0) k/uL Myelocytes # (Manual) 1.11 H (0) k/uL Blast Cells # (Man) 4.82 H (0) k/uL PT (10.0-12.5) sec INR (<1.2) Potassium 3.1 L (3.5-5.1) mmol/L Chloride 108 H (98-107) mmol/L Carbon Dioxide 17 L (22-30) mmol/L BUN 36 H (9-20) mg/dL Creatinine 3.20 H (0.66-1.25) mg/dL Glucose 151 H (74-99) mg/dL POC Glucose (mg/dL) (70-110) mg/dL Triglycerides 273.00 H (0.00-149.00) mg/dL VLDL Cholesterol, Calc 54.60 H (5.00-40.00) mg/dL HDL Cholesterol 19.10 L (40.00-60.00) mg/dL Urine Protein (Negative) Urine Glucose (UA) (Negative) Urine Blood (Negative) Urine RBC (0-5) /hpf Urine Mucus (None) /hpf 08/15/23 08/15/23 08/15/23 Range/Units 12:32 15:14 16:20 WBC (3.8-10.6) k/uL RBC (4.30-5.90) m/uL Hgb (13.0-17.5) gm/dL Hct (39.0-53.0) % Plt Count (150-450) k/uL Blast Cells % % Neutrophils # (Manual) (1.3-7.7) k/uL Lymphocytes # (Manual) (1.0-4.8) k/uL Monocytes # (Manual) (0-1.0) k/uL Metamyelocytes # (Man) (0) k/uL Myelocytes # (Manual) (0) k/uL Blast Cells # (Man) (0) k/uL PT 13.7 H (10.0-12.5) sec INR 1.3 H (<1.2) Potassium (3.5-5.1) mmol/L Chloride (98-107) mmol/L Carbon Dioxide (22-30) mmol/L BUN (9-20) mg/dL Creatinine (0.66-1.25) mg/dL Glucose (74-99) mg/dL POC Glucose (mg/dL) 155 H (70-110) mg/dL Triglycerides (0.00-149.00) mg/dL VLDL Cholesterol, Calc (5.00-40.00) mg/dL HDL Cholesterol (40.00-60.00) mg/dL Urine Protein 2+ H (Negative) Urine Glucose (UA) 3+ H (Negative) Urine Blood Moderate H (Negative) Urine RBC >182 H (0-5) /hpf Urine Mucus Rare H (None) /hpf 08/15/23 08/15/23 Range/Units 17:29 20:19 WBC (3.8-10.6) k/uL RBC (4.30-5.90) m/uL Hgb (13.0-17.5) gm/dL Hct (39.0-53.0) % Plt Count (150-450) k/uL Blast Cells % % Neutrophils # (Manual) (1.3-7.7) k/uL Lymphocytes # (Manual) (1.0-4.8) k/uL Monocytes # (Manual) (0-1.0) k/uL Metamyelocytes # (Man) (0) k/uL Myelocytes # (Manual) (0) k/uL Blast Cells # (Man) (0) k/uL PT (10.0-12.5) sec INR (<1.2) Potassium (3.5-5.1) mmol/L Chloride (98-107) mmol/L Carbon Dioxide (22-30) mmol/L BUN (9-20) mg/dL Creatinine (0.66-1.25) mg/dL Glucose (74-99) mg/dL POC Glucose (mg/dL) 189 H 159 H (70-110) mg/dL Triglycerides (0.00-149.00) mg/dL VLDL Cholesterol, Calc (5.00-40.00) mg/dL HDL Cholesterol (40.00-60.00) mg/dL Urine Protein (Negative) Urine Glucose (UA) (Negative) Urine Blood (Negative) Urine RBC (0-5) /hpf Urine Mucus (None) /hpf Microbiology - Last 24 Hours (Table) 08/14/23 18:23 Blood Culture - Preliminary Blood 08/14/23 18:15 Blood Culture - Preliminary Blood
[2023-08-16 22:08] LABS: Anti-DNA, DS unit <1.0 IU/mL; DNA Double-Stranded Negative (Negative)
--- NOTE | 2023-08-17 06:32 | P.PN ---
Subjective Progress Note Date: 08/17/23 Chief Complaint: Sepsis leukocytosis, thrombocytopenia, newly diagnosed left aggressive lymp 62-year-old gentleman went off my office patient was known for the last 10 years with past medical history of type 2 diabetes, chronic kidney disease, atherosclerotic heart disease, hypertension, hyperlipidemia, severe obstructive sleep apnea, recurrent asthma, severe neuropathy mild obesity who had seen dermatology over 2 weeks ago apparently for reactive dermatitis all over his body looks like small tiny sarcoma or granuloma but has been getting much worse. Ended up having biopsy at Dr. Reyna's office 2 weeks ago and were waiting for the result. Patient was seen in our office for last 10 days with progressive worsening symptoms consistent with severe tiredness fatigue and overall not feeling well surprisingly he started having an acute kidney injury with acute tubular necrosis with worsening kidney function creatinine climbing up from 1.6- 3.6 and short period of time. Had an appointment to see nephrology on Sunday for the last blood test has on last week shows reactive leukocytosis with significant thrombocytopenia and mild anemia repeat CBC today shows his white blood cell 40,000 with platelet count around 40,000 as well. 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 With a high suspicion for sepsis and worsening progressive acute kidney failure and possible of sepsis patient in the coming to the emergency department for was seen and evaluated blood culture was initiated repeat blood test and patient ended up going for CT of the abdomen and pelvis surprisingly shows new right axillary adenopathy measuring 3.6 cm with multiple lymphadenopathy all over also had splenomegaly with hepatomegaly and adrenal adenoma as well also finding consistent with lymph node all over consistent with lymphoma and circumferential bladder wall thickening and might represent chronic cystitis. We decided to admit patient to the hospital at this point specially declining kidney function will be seen oncology probably develop pathway to ask general surgery to do biopsy from the axillary lymph node for fast diagnosis as well to decide further management also gentle hydration. Repeat kidney function patient will be seen nephrology as inpatient as well if worsening symptoms patient might be close to need dialysis as well. 08/15/2023: He was seen today by oncology revealed a finding consistent with lymphoma patient will have axilla lymph node for biopsy done by general surgery tomorrow also oncology are planning to do PET scan prior to any treatment or management as for potential of bone marrow biopsy needs to be determined. Nephrology seen patient agree this is an acute tubular necrosis most likely ischemic from lymphomatosis involvement with significant increase in creatinine which may patient has stage IIIa chronic kidney disease. Agree to continue hydration check UA check renal ultrasound and continue to scan the bladder will add oral bicarbonate and avoid any nephrotoxic agent. Again general surgery seen patient and agree to do right axilla lymph node biopsy tomorrow continue to watch his blood level. 08-16-2023: Is doing well and is scheduled for biopsy with Dr. Ross today, his white blood cell is down to 30,000 platelets are down to 38,000 as well his creatinine is much worse at 3.63 with bun of 42, his acute kidney injury has declined more mostly related to ischemic change from lymphomatosis involvement causing acute tubular necrosis. As for his lymphoma still been still be careful with oncology waiting for the final culture the patient will be going for PET scan possibly in the next few days before deciding the course of treatment. 08/17/2023: Patient was doing very well and upon biopsy yesterday successfully waiting for the final result, will see if oncology have any plan to do while st ill in the hospital or patient can be discharged and continue the rest of his management as an outpatient. Review of Systems: CONSTITUTIONAL: Mildly overweight does not look comfortable no major respiratory distress. EYES: No icterus sclerae, no conjunctivitis. EARS, NOSE, MOUTH, THROAT, and FACE: No sore throat, lymphadenopathy, carotid bruits or deformity. RESPIRATORY: Mild shortness of breath no wheezes. CARDIOVASCULAR: No CP, Palpitation, PND, Orthopnea, or angina. GASTROINTESTINAL: Slight abdominal discomfort with ventral hernia no nausea or vomiting slight change in bowel habit as well. GENITOURINARY: Decrease in kidney function with less frequent urination without any hematuria at this point. INTEGUMENT/BREAST: Lymph node enlargement. HEMATOLOGIC/LYMPHATIC: Lymph node enlargement with mild anemia. MUSCULOSKELTAL: Negative for Myalgia or arthralgia. NEURLOGICAL: No LOC, Sz or syncope, blurred vision dizziness or abnormality.. BEHAVIORAL/PSYCH: Negative. ENDOCRINE: Negative. Physical examination: General Appearance: Alert, slightly overweight, does not look comfortable but no respiratory distress. Neck HEENT: Supple with slight lymph node enlargement without any thyroid enlargement. Lungs: Clear to auscultation without crackles slight rhonchi no wheezes. Chest Wall: Chest wall normal expansion with deep inspiration no tenderness and no deformity was found on exam, no costochondral pain or discomfort. Heart: Regular rate and rhythm, S1, S2 normal, no murmur, rub or gallop. Back: Symmetric, no curvature, ROM normal, no CVA tenderness. Abdomen: Positive ventral hernia, slightly enlarged spleen, mildly hepatomegaly with mild discomfort in the mid abdominal region area. Extremities: Extremities normal, atraumatic, no cyanosis or edema. Pulses: 2+ and symmetric. Skin: Small granulated rash all over his body including the face and neck the chest wall area more like reactive dermatitis Neurologic: Alert oriented x3 cranial nerves II through XII intact, no motor deficit, no abnormal balance or gait. Assessment and plan: 1 newly diagnosis of aggressive lymphoma: Lymph node biopsy from the right axilla is planned for tomorrow, PET scan will be planned as an outpatient pa jeramy had seen oncology no plan for bone marrow biopsy at this point. 2 possible sepsis: With significant leukocytosis and thrombocytopenia, blood culture will be done patient was started on Levaquin initially because of his allergy waiting for the culture might consult infectious disease as well. All cultures are negative so far. 3 acute kidney injury with acute tubular necrosis: Mostly from tubular obstruction and ischemia from lymphomatosis involvement, still been hydrated well. Avoiding any nephrotoxic agents at this point still see nephrology does not require any hemodialysis yet. 4 severe thrombocytopenia most likely reactive to either sepsis or his lymphoma may be there is any involvement of his lymphoma in the bone marrow especially if this is an aggressive type of lymphoma causing the suppressive bone marrow to have thrombocytopenia. Patient might require platelet transfusion and prepare for his biopsy. 5 type 2 diabetes: Has been on Mounjaro, Actos, Tresiba along with short acting insulin resume medication along with Accu-Chek with sliding scale coverage. 6 chronic neuropathy: Has not been on any medication lately but slightly bit worse. 7 chronic asthma has been seen pulmonary regular basis remain on albuterol and budesonide. 8 severe BPH: Has been on Flomax 0.4 mg daily. 9 hyperlipidemia will continue simvastatin 40 mg a day. 10 atherosclerotic heart disease has been seeing cardiology last stress test was from April last year. 11 hiatal hernia with worsening symptoms of GERD: Remain on omeprazole 20 mg twice a day on regular basis. Objective - Vital Signs Vital signs: Vital Signs Temp 98.7 F 08/17/23 01:42 Pulse 106 H 08/17/23 01:42 Resp 17 08/17/23 01:42 BP 158/78 08/17/23 01:42 Pulse Ox 92 L 08/17/23 01:42 FiO2 Intake & Output 08/16/23 08/16/23 08/17/23 06:59 18:59 06:59 Intake Total 833 1264 Output Total 5 Balance 828 1264 Intake: IV 550 Intake, IV Titration 646 Amount Rasburicase 6 mg In 46 Sodium Chloride 0.9% 46 ml @ 100 mls/hr IV ONCE ONE Rx#:[id number] Sodium Chloride 0.9% 1, 600 000 ml @ 50 mls/hr IV . Q20H [facility] Rx#:[id number] Oral 0 618 Blood Product 283 Platelet Pheresis Pas 283 Psoralen Unit [id number] Output: Estimated Blood Loss 5 Other: Voiding Method Toilet Urinal # Voids 3 2 3 - Labs CBC & Chem 7: 08/16/23 05:58 08/16/23 05:58 Labs: Abnormal Lab Results - Last 24 Hours (Table) 08/14/23 08/16/23 08/16/23 Range/Units 16:51 05:58 05:58 WBC 30.9 H (3.8-10.6) k/uL RBC 3.64 L (4.30-5.90) m/uL Hgb 10.6 L (13.0-17.5) gm/dL Hct 31.8 L (39.0-53.0) % Plt Count 38 L (150-450) k/uL Blast Cells % 8 H* % Neutrophils # (Manual) 11.10 H (1.3-7.7) k/uL Lymphocytes # (Manual) 9.89 H (1.0-4.8) k/uL Monocytes # (Manual) 7.11 H (0-1.0) k/uL Blast Cells # (Man) 2.47 H (0) k/uL Nucleated RBCs 2 H (0-0) /100 WBC Pathologist Review See comment A Chloride 109 H (98-107) mmol/L Carbon Dioxide 18 L (22-30) mmol/L BUN 42 H (9-20) mg/dL Creatinine 3.63 H (0.66-1.25) mg/dL Glucose 137 H (74-99) mg/dL POC Glucose (mg/dL) (70-110) mg/dL Uric Acid (3.5-8.5) mg/dL Phosphorus (2.5-4.5) mg/dL Total Protein 6.1 L (6.3-8.2) g/dL 08/16/23 08/16/23 08/16/23 Range/Units 05:58 07:12 11:56 WBC (3.8-10.6) k/uL RBC (4.30-5.90) m/uL Hgb (13.0-17.5) gm/dL Hct (39.0-53.0) % Plt Count (150-450) k/uL Blast Cells % % Neutrophils # (Manual) (1.3-7.7) k/uL Lymphocytes # (Manual) (1.0-4.8) k/uL Monocytes # (Manual) (0-1.0) k/uL Blast Cells # (Man) (0) k/uL Nucleated RBCs (0-0) /100 WBC Pathologist Review Chloride (98-107) mmol/L Carbon Dioxide (22-30) mmol/L BUN (9-20) mg/dL Creatinine (0.66-1.25) mg/dL Glucose (74-99) mg/dL POC Glucose (mg/dL) 143 H 141 H (70-110) mg/dL Uric Acid 12.7 H (3.5-8.5) mg/dL Phosphorus 5.2 H (2.5-4.5) mg/dL Total Protein (6.3-8.2) g/dL 08/16/23 08/16/23 Range/Units 17:53 20:25 WBC (3.8-10.6) k/uL RBC (4.30-5.90) m/uL Hgb (13.0-17.5) gm/dL Hct (39.0-53.0) % Plt Count (150-450) k/uL Blast Cells % % Neutrophils # (Manual) (1.3-7.7) k/uL Lymphocytes # (Manual) (1.0-4.8) k/uL Monocytes # (Manual) (0-1.0) k/uL Blast Cells # (Man) (0) k/uL Nucleated RBCs (0-0) /100 WBC Pathologist Review Chloride (98-107) mmol/L Carbon Dioxide (22-30) mmol/L BUN (9-20) mg/dL Creatinine (0.66-1.25) mg/dL Glucose (74-99) mg/dL POC Glucose (mg/dL) 122 H 259 H (70-110) mg/dL Uric Acid (3.5-8.5) mg/dL Phosphorus (2.5-4.5) mg/dL Total Protein (6.3-8.2) g/dL Microbiology - Last 24 Hours (Table) 08/14/23 18:23 Blood Culture - Preliminary Blood 08/14/23 18:15 Blood Culture - Preliminary Blood
[2023-08-17 07:23] LABS: Glucose,Whole Blood 143 mg/dL (70-110)
[2023-08-17 08:31] LABS: BUN/Creat Ratio 10.89 Ratio (12.00-20.00); Blood Urea Nitrogen 47.9 mg/dL (9.0-27.0); Calcium 8.7 mg/dL (8.7-10.3); Carbon Dioxide 18.8 mmol/L (21.6-31.8); Chloride 106 mmol/L (96-109); Glucose 156 mg/dL (70-110); Magnesium 1.7 mg/dL (1.5-2.4); Phosphorus 4.6 mg/dL (2.4-5.1); Potassium 4.2 mmol/L (3.5-5.5); Sodium 139 mmol/L (135-145); Uric Acid 5.6 mg/dL (3.7-8.7)
[2023-08-17] MEDS: LEVOFLOXACIN 250MG-D5W PMX 250 MG in DEXTROSE/WATER 1 50ML.BAG IVPB SCH (09:28)
[2023-08-17] MEDS: allopurinoL 100 MG TAB PO SCH (09:28)
[2023-08-17 12:18] LABS: Glucose,Whole Blood 133 mg/dL (70-110)
--- NOTE | 2023-08-17 12:41 | P.PN ---
Subjective Principal diagnosis: Patient is seen in follow-up for acute kidney injury on chronic kidney disease. Creatinine up to 4.4 today. Receiving IV fluids. Has been voiding. Denies gross hematuria. Vital signs are stable. General: No acute distress. HEENT: Head exam is unremarkable. LUNGS: No audible rhonchi or wheezes. HEART: Rate and Rhythm are regular. ABDOMEN: Obese, nontender. EXTREMITITES: No edema. Skin lesions noted. Objective - Vital Signs Vital signs: Vital Signs Temp 98.9 F 08/17/23 07:42 Pulse 110 H 08/17/23 07:42 Resp 18 08/17/23 07:42 BP 182/90 08/17/23 07:42 Pulse Ox 97 08/17/23 09:03 FiO2 21 08/17/23 09:03 Intake & Output 08/16/23 08/17/23 08/17/23 18:59 06:59 18:59 Intake Total 1633 1264 Output Total 5 Balance 1628 1264 Intake: IV 1350 Intake, IV Titration 646 Amount Rasburicase 6 mg In 46 Sodium Chloride 0.9% 46 ml @ 100 mls/hr IV ONCE ONE Rx#:[id number] Sodium Chloride 0.9% 1, 600 000 ml @ 50 mls/hr IV . Q20H [facility] Rx#:[id number] Oral 0 618 Blood Product 283 Platelet Pheresis Pas 283 Psoralen Unit [id number] Output: Estimated Blood Loss 5 Other: Voiding Method Toilet Toilet Urinal Urinal # Voids 2 3 - Labs CBC & Chem 7: 08/16/23 05:58 08/17/23 05:45 Labs: Abnormal Lab Results - Last 24 Hours (Table) 08/14/23 08/16/23 08/16/23 Range/Units 16:51 05:58 17:53 Pathologist Review See comment A Carbon Dioxide (21.6-31.8) mmol/L Anion Gap (4.00-12.00) mmol/L BUN (9.0-27.0) mg/dL Creatinine (0.6-1.5) mg/dL Est GFR (CKD-EPI) (>=60) BUN/Creatinine Ratio (12.00-20.00) Ratio Glucose (70-110) mg/dL POC Glucose (mg/dL) 122 H (70-110) mg/dL Uric Acid 12.7 H (3.5-8.5) mg/dL Phosphorus 5.2 H (2.5-4.5) mg/dL 08/16/23 08/17/23 08/17/23 Range/Units 20:25 05:45 07:17 Pathologist Review Carbon Dioxide 18.8 L (21.6-31.8) mmol/L Anion Gap 14.20 H (4.00-12.00) mmol/L BUN 47.9 H (9.0-27.0) mg/dL Creatinine 4.4 H (0.6-1.5) mg/dL Est GFR (CKD-EPI) 14 L (>=60) BUN/Creatinine Ratio 10.89 L (12.00-20.00) Ratio Glucose 156 H (70-110) mg/dL POC Glucose (mg/dL) 259 H 143 H (70-110) mg/dL Uric Acid (3.5-8.5) mg/dL Phosphorus (2.5-4.5) mg/dL 08/17/23 Range/Units 12:16 Pathologist Review Carbon Dioxide (21.6-31.8) mmol/L Anion Gap (4.00-12.00) mmol/L BUN (9.0-27.0) mg/dL Creatinine (0.6-1.5) mg/dL Est GFR (CKD-EPI) (>=60) BUN/Creatinine Ratio (12.00-20.00) Ratio Glucose (70-110) mg/dL POC Glucose (mg/dL) 133 H (70-110) mg/dL Uric Acid (3.5-8.5) mg/dL Phosphorus (2.5-4.5) mg/dL Microbiology - Last 24 Hours (Table) 08/14/23 18:23 Blood Culture - Preliminary Blood 08/14/23 18:15 Blood Culture - Preliminary Blood Assessment and Plan Plan: Assessment: 1. Acute kidney injury secondary to ATN secondary to spontaneous tumor lysis syndrome. Concern for tubular obstruction and ischemia from lymphomatous involvement. Creatinine up to 4.4 today. Kidney ultrasound from August 08, 2023 showed normal-sized kidneys without evidence of hydronephrosis. UA positive for protein and hematuria. 2. Chronic kidney disease stage IIIa with baseline creatinine 1.3-1.4 in April 2023. Suspect underlying diabetic kidney disease. 3. Recently diagnosed malignancy. Lymphoma versus melanoma versus other. Oncology following. Axillary node biopsy results pending. 4. Hypokalemia from poor intake. Replaced. Better. 5. Metabolic acidosis secondary to acute kidney injury on IV fluids. 6. Diabetes mellitus. 7. Benign hypertension. Exacerbated by steroids. 8. Hypomagnesemia from poor intake. Replaced. Better. 9. Thrombocytopenia. Received platelet transfusions this admission. Hematology following. 10. 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 Status post rasburicase. Plan: Change IV fluids to isotonic sodium bicarb drip to be run at 150 cc an hour. Check bladder scan to make sure no urinary retention. Amlodipine added yesterday. Increased dose of hydralazine. UPC 1.64 g. Follow-up serologies. Negative so far. Avoid nephrotoxins. Continue to monitor renal function and urine output. Continue to assess daily for need for renal replacement therapy. No urgency at this time. May need kidney biopsy for definitive diagnosis. Discussed with patient. Case discussed with hematology/oncology
[2023-08-17] MEDS: dexAMETHasone 4 MG TAB PO SCH (12:51)
--- NOTE | 2023-08-17 13:04 | P.PN ---
Subjective Progress Note Date: 08/17/23 CHIEF COMPLAINT: Skin nodules HISTORY OF PRESENT ILLNESS: Patient status post excision of left upper back skin nodule yesterday. Area is bandaged. Patient reports no significant pain. Afebrile. Mildly tacky. PHYSICAL EXAM: VITAL SIGNS: Reviewed. GENERAL: Well-developed in no acute distress. Skin: Upper back dressing clean dry and intact ASSESSMENT: 1. Left upper back skin nodule status post excision 2. New diagnosis of lymphoma PLAN: -Patient can be discharged from surgical standpoint when medically cleared -Continue to follow with oncology service -Follow-up on pathology results Physician Simulation Developer note has been reviewed by physician. Signing provider agrees with the documented findings, assessment, and plan of care. Objective - Vital Signs Vital signs: Vital Signs Temp 98.9 F 08/17/23 07:42 Pulse 110 H 08/17/23 07:42 Resp 18 08/17/23 07:42 BP 182/90 08/17/23 07:42 Pulse Ox 97 08/17/23 09:03 FiO2 21 08/17/23 09:03 Intake & Output 08/16/23 08/17/23 08/17/23 18:59 06:59 18:59 Intake Total 1633 1264 Output Total 5 Balance 1628 1264 Intake: IV 1350 Intake, IV Titration 646 Amount Rasburicase 6 mg In 46 Sodium Chloride 0.9% 46 ml @ 100 mls/hr IV ONCE ONE Rx#:[id number] Sodium Chloride 0.9% 1, 600 000 ml @ 50 mls/hr IV . Q20H [facility] Rx#:[id number] Oral 0 618 Blood Product 283 Platelet Pheresis Pas 283 Psoralen Unit [id number] Output: Estimated Blood Loss 5 Other: Voiding Method Toilet Toilet Urinal Urinal # Voids 2 3 - Labs CBC & Chem 7: 08/16/23 05:58 08/17/23 05:45 Labs: Abnormal Lab Results - Last 24 Hours (Table) 08/14/23 08/16/23 08/16/23 Range/Units 16:51 05:58 17:53 Pathologist Review See comment A Carbon Dioxide (21.6-31.8) mmol/L Anion Gap (4.00-12.00) mmol/L BUN (9.0-27.0) mg/dL Creatinine (0.6-1.5) mg/dL Est GFR (CKD-EPI) (>=60) BUN/Creatinine Ratio (12.00-20.00) Ratio Glucose (70-110) mg/dL POC Glucose (mg/dL) 122 H (70-110) mg/dL Uric Acid 12.7 H (3.5-8.5) mg/dL Phosphorus 5.2 H (2.5-4.5) mg/dL 08/16/23 08/17/23 08/17/23 Range/Units 20:25 05:45 07:17 Pathologist Review Carbon Dioxide 18.8 L (21.6-31.8) mmol/L Anion Gap 14.20 H (4.00-12.00) mmol/L BUN 47.9 H (9.0-27.0) mg/dL Creatinine 4.4 H (0.6-1.5) mg/dL Est GFR (CKD-EPI) 14 L (>=60) BUN/Creatinine Ratio 10.89 L (12.00-20.00) Ratio Glucose 156 H (70-110) mg/dL POC Glucose (mg/dL) 259 H 143 H (70-110) mg/dL Uric Acid (3.5-8.5) mg/dL Phosphorus (2.5-4.5) mg/dL 08/17/23 Range/Units 12:16 Pathologist Review Carbon Dioxide (21.6-31.8) mmol/L Anion Gap (4.00-12.00) mmol/L BUN (9.0-27.0) mg/dL Creatinine (0.6-1.5) mg/dL Est GFR (CKD-EPI) (>=60) BUN/Creatinine Ratio (12.00-20.00) Ratio Glucose (70-110) mg/dL POC Glucose (mg/dL) 133 H (70-110) mg/dL Uric Acid (3.5-8.5) mg/dL Phosphorus (2.5-4.5) mg/dL Microbiology - Last 24 Hours (Table) 08/14/23 18:23 Blood Culture - Preliminary Blood 08/14/23 18:15 Blood Culture - Preliminary Blood
[2023-08-17] MEDS: DEXTROSE 5% IN WATER 1,000 ML with SODIUM BICARB (1 MEQ/ML) 150 ML IV SCH (13:41)
[2023-08-17 14:59] LABS: C-ANCA <1:20 Titer (<1:20)
[2023-08-17] MEDS: hydrALAZINE HCL 50 MG TAB PO SCH (16:15)
[2023-08-17 16:27] LABS: Gamma Globulin 0.89 g/dL (0.70-1.50)
[2023-08-17 17:19] LABS: Glucose,Whole Blood 236 mg/dL (70-110)
--- NOTE | 2023-08-17 19:10 | P.PN ---
Subjective Progress Note Date: 08/17/23 Principal diagnosis: lymphoma, TLS In f/u today, pt has no new c/o. Denies nausea, vomiting, progressive SOB, abd pain, acute changes in bowel or bladder. Pt found to be in tumor lysis. S/p 1 dose Elitek. Uric acid improved to 5.6 from 12.7. Phosphorus 4.6, Creatinine 4.4 today Objective - Vital Signs Vital signs: Vital Signs Temp 98.7 F 08/17/23 13:03 Pulse 97 08/17/23 13:03 Resp 19 08/17/23 13:03 BP 145/75 08/17/23 13:03 Pulse Ox 95 08/17/23 13:03 FiO2 21 08/17/23 09:03 Intake & Output 08/16/23 08/17/23 08/17/23 18:59 06:59 18:59 Intake Total 1633 1264 Output Total 5 Balance 1628 1264 Intake: IV 1350 Intake, IV Titration 646 Amount Rasburicase 6 mg In 46 Sodium Chloride 0.9% 46 ml @ 100 mls/hr IV ONCE ONE Rx#:[id number] Sodium Chloride 0.9% 1, 600 000 ml @ 50 mls/hr IV . Q20H [facility] Rx#:[id number] Oral 0 618 Blood Product 283 Platelet Pheresis Pas 283 Psoralen Unit [id number] Output: Estimated Blood Loss 5 Other: Voiding Method Toilet Toilet Urinal Urinal # Voids 2 3 - Constitutional General appearance: Present: no acute distress - EENT Eyes: Present: anicteric sclerae ENT: Present: hearing grossly normal - Respiratory Details: breathing even and unlabored - Cardiovascular Details: well perfused - Gastrointestinal General gastrointestinal: Present: soft. Absent: tenderness - Integumentary Integumentary Comment(s): diffuse lesions on face, back and chest Integumentary: Absent: cyanotic - Neurologic Neurologic Comment(s): grossly intact - Musculoskeletal Musculoskeletal: Present: strength equal bilaterally - Psychiatric Psychiatric: Present: A&O x's 3 - Labs CBC & Chem 7: 08/16/23 05:58 08/17/23 05:45 Labs: Abnormal Lab Results - Last 24 Hours (Table) 08/14/23 08/16/23 08/16/23 Range/Units 16:51 05:58 17:53 Pathologist Review See comment A Carbon Dioxide (21.6-31.8) mmol/L Anion Gap (4.00-12.00) mmol/L BUN (9.0-27.0) mg/dL Creatinine (0.6-1.5) mg/dL Est GFR (CKD-EPI) (>=60) BUN/Creatinine Ratio (12.00-20.00) Ratio Glucose (70-110) mg/dL POC Glucose (mg/dL) 122 H (70-110) mg/dL Uric Acid 12.7 H (3.5-8.5) mg/dL Phosphorus 5.2 H (2.5-4.5) mg/dL 08/16/23 08/17/23 08/17/23 Range/Units 20:25 05:45 07:17 Pathologist Review Carbon Dioxide 18.8 L (21.6-31.8) mmol/L Anion Gap 14.20 H (4.00-12.00) mmol/L BUN 47.9 H (9.0-27.0) mg/dL Creatinine 4.4 H (0.6-1.5) mg/dL Est GFR (CKD-EPI) 14 L (>=60) BUN/Creatinine Ratio 10.89 L (12.00-20.00) Ratio Glucose 156 H (70-110) mg/dL POC Glucose (mg/dL) 259 H 143 H (70-110) mg/dL Uric Acid (3.5-8.5) mg/dL Phosphorus (2.5-4.5) mg/dL 08/17/23 Range/Units 12:16 Pathologist Review Carbon Dioxide (21.6-31.8) mmol/L Anion Gap (4.00-12.00) mmol/L BUN (9.0-27.0) mg/dL Creatinine (0.6-1.5) mg/dL Est GFR (CKD-EPI) (>=60) BUN/Creatinine Ratio (12.00-20.00) Ratio Glucose (70-110) mg/dL POC Glucose (mg/dL) 133 H (70-110) mg/dL Uric Acid (3.5-8.5) mg/dL Phosphorus (2.5-4.5) mg/dL Microbiology - Last 24 Hours (Table) 08/14/23 18:23 Blood Culture - Preliminary Blood 08/14/23 18:15 Blood Culture - Preliminary Blood Assessment and Plan (1) Tumor lysis syndrome Current Visit: Yes Status: Acute Priority: High Code(s): E88.3 - TUMOR LYSIS SYNDROME SNOMED Code(s): 912014946 (2) Acute kidney injury Current Visit: Yes Status: Acute Priority: High Code(s): N17.9 - ACUTE KIDNEY FAILURE, UNSPECIFIED SNOMED Code(s): 56372342 (3) Leukocytosis Current Visit: Yes Status: Acute Priority: High Code(s): D72.829 - ELEVATED WHITE BLOOD CELL COUNT, UNSPECIFIED SNOMED Code(s): 416465491 (4) Lymphoma Current Visit: Yes Status: Acute Priority: High Code(s): C85.90 - NON- HODGKIN LYMPHOMA, UNSPECIFIED, UNSPECIFIED SITE SNOMED Code(s): 916223432 (5) Thrombocytopenia Current Visit: Yes Status: Acute Priority: High Code(s): D69.6 - THROMBOCYTOPENIA, UNSPECIFIED SNOMED Code(s): 700289796 Plan: 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 Over the last 3 weeks have multiplied exponentially and now cover his whole body, more dense on the head, neck, upper back and chest, scant on the extremities -Pathology report obtained. Collected 07/25/2023. Neoplasm of uncertain behavior versus melanoma versus granuloma versus lymphoblastic T-cell lymphoma are the differentials. Lesion is positive for CD5 and CD56 immunostains. Additional studies will need to be performed to confirm the diagnosis. -S/p repeat skin biopsy, biopsy and flow cytometry requested. Results pending -STAT tumor lysis labs, rule out spontaneous TLS due to worsening kidney function -100mg allopurinol ordered -Optimally, patients with lymphoma should have staging PET scan prior to beginning treatment but, urgency of treatment is going to have to be considered -Spoke with Dr. Albino Brannon at [facility] regarding case, and he is recommending transfer for higher level of care and pt will need likely need to start inpt treatment due to aggressive nature of lymphoma. Spoke with IM team to update on POC. Transfer has been started, awaiting bed -Pulse dose dex started -Echocardiogram and Picc line ordered for anticipation of treatment. Will try to obtain prior to discharge, if not can obtain at transferring facility TLS: -Elevated uric acid and phosphorus levels with worsening kidney function. 1 dose of Elitek ordered. -Allopurinol 100 mg daily because of renal function. -Repeat TLS labs daily -Nephrology following. Spoke with nephrology, recommended bicarb drip. -If uric acid greater than 8 will order 2nd dose Elitek Doctor attests: I performed a history and physical examination of this patient, developed impression and plan of care. Discussed with dictator. I agree with dictators note, documented as a scribe. Time with Patient: Greater than 30
[2023-08-17 20:35] LABS: Glucose,Whole Blood 392 mg/dL (70-110)
[2023-08-18 06:55] LABS: Glucose,Whole Blood 416 mg/dL (70-110)
[2023-08-18 06:55] LABS: Glucose,Whole Blood 428 mg/dL (70-110)
[2023-08-18] MEDS ORDERED: DEXTROSE 50% SYRINGE 50 ML IVP PRN ×2 (07:44)
[2023-08-18] MEDS: INSULIN ASPART (NovoLOG) 100 UNIT/ML VIAL SQ SCH ×2 (08:38)
--- NOTE | 2023-08-18 08:45 | CT ---
EXAMINATION TYPE: CT cervical spine wo con DATE OF EXAM: 08/18/2023 COMPARISON: Outside cervical spine MRI 2010 HISTORY: left arm tingling CT DLP: 868.3 mGycm. Automated Exposure Control for Dose Reduction was Utilized. TECHNIQUE: CT scan of the cervical spine is obtained without contrast, axial images are obtained, sa gittal and coronal reformatted images are also reviewed. FINDINGS: Cervical spine is visualized in its entirety from C1 through upper thoracic levels, demonst rates satisfactory alignment without evidence of acute fracture or dislocation. Prevertebral soft ti ssue appears within normal limits. The C1-C2 articulation is within normal limits on the coronal gordon ges. Vertebral body heights are maintained. Mild multilevel disc space narrowing is present. Review of axial images shows no new large disc herniation. Thyroid gland is normal in size. Subcentim eter right thyroid nodule axial image 67 is noted. Nonemergent thyroid ultrasound follow-up is advise d to further evaluate if not known finding. Lung apices are clear without pneumothorax. IMPRESSION: No acute findings are seen to account for patient's symptoms.
--- NOTE | 2023-08-18 09:36 | P.PN ---
Progress Note - Text Progress Note Date: 08/18/23 He has some drainage on the biopsy site on his upper back. No infection. OK to change dressing qd and prn.
--- NOTE | 2023-08-18 09:40 | CA ---
Transthoracic Echo Report Name: Carlos Roberto Age: 62 Gender: M : 1960 Exam Date: 08/18/2023 08:06 Exam Location: [facility] Ht (in): 69 Wt (lb): 250 Ordering Physician: Arjun Boyer Attending/Referring Phys: [employer]ing Machine Tender Lisa Blackburn RDCS Procedure CPT: Indications: high-grade lymphoma, baseline for treatment Cardiac Hx: Technical Quality: Technically difficult study Contrast 1: Definity Total Dose (mL): 2 Contrast 2: Total Dose (mL): MEASUREMENTS (Male / Female) Normal Values 2D ECHO LV Diastolic Diameter PLAX 4.5 cm 4.2 - 5.9 / 3.9 - 5.3 cm LV Systolic Diameter PLAX 2.9 cm IVS Diastolic Thickness 1.3 cm 0.6 - 1.0 / 0.6 - 0.9 cm LVPW Diastolic Thickness 1.3 cm 0.6 - 1.0 / 0.6 - 0.9 cm LV Relative Wall Thickness 0.6 RV Internal Dim ED PLAX 3.4 cm LA Systolic Diameter LX 4.1 cm 3.0 - 4.0 / 2.7 - 3.8 cm LV Diastolic Volume MOD BP 60.8 cm??? 67 - 155 / 56 - 104 cm??? LV Systolic Volume MOD BP 24.9 cm??? - / 19 - 49 cm??? LV Ejection Fraction MOD BP 59.1 % >= 55 % LV Cardiac Index MOD BP 1455.5 cm???/min???m??? LV Diastolic Volume MOD 4C 65.4 cm??? LV Systolic Volume MOD 4C 31.3 cm??? LV Ejection Fraction MOD 4C 52.1 % LV Cardiac Index MOD 4C 1380.4 cm???/min???m??? LV Diastolic Length 4C 8.3 cm LV Systolic Length 4C 7.1 cm LV Diastolic Volume MOD 2C 56.3 cm??? LV Systolic Volume MOD 2C 19.1 cm??? LV Ejection Fraction MOD 2C 66.0 % LV Cardiac Index MOD 2C 1506.1 cm???/min???m??? LV Diastolic Length 2C 8.1 cm LV Systolic Length 2C 6.7 cm LA Volume 63.1 cm??? 18 - 58 / 22 - 52 cm??? LA Volume Index 26.3 cm???/m??? 16 - 28 cm???/m??? M-MODE Aortic Root Diameter MM 3.7 cm MV E Point Septal Separation 0.8 cm AV Cusp Separation MM 2.4 cm DOPPLER AV Peak Velocity 123.2 cm/s AV Peak Gradient 6.1 mmHg MV Area PHT 4.6 cm??? Mitral E Point Velocity 92.6 cm/s Mitral A Point Velocity 111.3 cm/s Mitral E to A Ratio 0.8 MV Deceleration Time 166.3 ms FINDINGS Left Ventricle Left ventricular ejection fraction is estimated at 55-60 %. Mildly increased septal wall thickness. Left ventricular cavity size normal. Normal left ventricular wall motion. Right Ventricle Mild right ventricular dilatation. Unable to estimate the right ventricular systolic pressure. Right Atrium Normal right atrial size. Left Atrium Mildly increased left atrial volume. Mitral Valve Structurally normal mitral valve. Mitral annular calcification. Aortic Valve Trileaflet aortic valve. No aortic valve stenosis or regurgitation. Tricuspid Valve Structurally normal tricuspid valve. No tricuspid stenosis, regurgitation or prolapse. Pulmonic Valve Structurally normal pulmonic valve. No pulmonic regurgitation. Pericardium No pericardial effusion. Aorta Normal size aortic root and proximal ascending aorta. CONCLUSIONS Normal LV function Previewed by: Dr. Rob Gillis MD (Electronically Signed) Final Date: 18 August 2023 09:39
[2023-08-18 11:52] LABS: Magnesium 1.6 mg/dL (1.5-2.4); Phosphorus 4.6 mg/dL (2.4-5.1); Uric Acid 3.1 mg/dL (3.7-8.7)
[2023-08-18 12:00] LABS: ALT 14 U/L (10-49); AST 20 U/L (14-35); Albumin 3.4 g/dL (3.8-4.9); Albumin/Globulin Ratio 1.62 Ratio (1.60-3.17); Alkaline Phosphatase 104 U/L (41-126); BUN/Creat Ratio 11.15 Ratio (12.00-20.00); Blood Urea Nitrogen 60.2 mg/dL (9.0-27.0); Calcium 8.7 mg/dL (8.7-10.3); Carbon Dioxide 21.3 mmol/L (21.6-31.8); Chloride 96 mmol/L (96-109); Globulin 2.1 g/dL (1.6-3.3); Glucose 459 mg/dL (70-110); Potassium 4.2 mmol/L (3.5-5.5); Sodium 132 mmol/L (135-145); Total Bilirubin 0.4 mg/dL (0.3-1.2); Total Protein 5.5 g/dL (6.2-8.2)
[2023-08-18 12:16] LABS: Glucose,Whole Blood 358 mg/dL (70-110)
[2023-08-18] MEDS ORDERED: INSULIN ASPART (NovoLOG) 100 UNIT/ML VIAL SQ SCH (12:30)
[2023-08-18 12:41] LABS: Basophils # (M) 0 X 10*3/uL (0.00-0.10); Eosinophils # (M) 0 X 10*3/uL (0.04-0.35); HCT 28.5 % (39.6-50.0); HGB 9.3 g/dL (13.0-17.0); Immature Platelet Fraction 8.8 % (1.1-6.1); Lymphocytes # (M) 8.46 X 10*3/uL (0.90-5.00); MCH 28.2 pg (27.0-32.0); MCHC 32.6 g/dL (32.0-37.0); MCV 86.4 FL (80.0-97.0); Mean Platelet Volume 11.4 FL (9.5-12.2); Metamyelocytes % 3 % (0-0); Microcytosis (M) 2+; Monocytes # (M) 3.72 X 10*3/uL (0.20-1.00); Myelocytes % 3 % (0-0); NRBC Per 100 WBC 0.26 X 10*3/uL (0.00-0.01); Neutrophils # (M) 18.96 X 10*3/uL (1.80-7.70); Neutrophils % (M) 56 %; Nucleated Red Blood Cells 1 /100 WBCS; Platelet Count 40 X 10*3/uL (140-440); Promyelocytes # (M) 0.68 k/uL (0); Promyelocytes % 2 %; RDW 14.9 % (11.5-14.5); WBC 33.85 X 10*3/uL (4.50-10.00)
--- NOTE | 2023-08-18 13:43 | P.GSCN ---
History of Present Illness History of present illness: 62-year gentleman history of chronic renal failure. Patient had history of sleep apnea, Beatties mellitus, newly diagnosed with lymphoma patient is scheduled to have a dialysis catheter. Neck supple Chest patient had is a no nodules noted on his neck and chest area patient has a history of sleep apnea on few crackles the lung bases. Second sound present Abdomen soft nontender Vascular brachial radial femoral pulses are present Plan is placement of dialysis catheter risk complication discussed Past Medical History Past Medical History: Asthma, Chest Pain / Angina, Diabetes Mellitus, Hyperlipidemia, Hypertension, Renal Disease, Sleep Apnea/CPAP/BIPAP Additional Past Medical History / Comment(s): uses CPAP, decreased kidney function, umbilical hernia currently, recent adm. for chest pain, no problems found per pt. History of Any Multi-Drug Resistant Organisms: None Reported Past Surgical History: Heart Catheterization, Hernia Repair, Orthopedic Surgery Additional Past Surgical History / Comment(s): left shoulder surg., mult. right ankle surgeries Past Anesthesia/Blood Transfusion Reactions: No Reported Reaction Past Psychological History: No Psychological Hx Reported Smoking Status: Former smoker Medications and Allergies Home Medications Medication Instructions Recorded Confirmed Type Metoprolol Tartrate [Lopressor] 50 mg PO BID 11/29/16 08/14/23 History Pioglitazone [Actos] 30 mg PO DAILY 11/29/16 08/14/23 History Simvastatin 40 mg PO HS 11/29/16 08/14/23 History Albuterol Inhaler [Ventolin Hfa 2 puff INHALATION RT-Q6H PRN 04/12/23 08/14/23 History Inhaler] Insulin Degludec [Tresiba 50 units SQ HS 04/12/23 08/14/23 History Flextouch U-200 Pen] Montelukast [Singulair] 10 mg PO DAILY 04/12/23 08/14/23 History Omeprazole 20 mg PO BID 04/12/23 08/14/23 History Budesonide/Glycopyr/Formoterol 2 puff INHALATION RT-DAILY 08/14/23 08/14/23 History [Breztri Aerosphere Inhaler] Tamsulosin [Flomax] 0.4 mg PO DAILY 08/14/23 08/14/23 History Tirzepatide [Mounjaro] 7.5 mg SQ MO 08/14/23 08/14/23 History Allergies Allergy/AdvReac Type Severity Reaction Status Date / Time shellfish derived [Shellfish] Allergy Mild Itching Verified 08/14/23 19:33 Penicillins Allergy Anaphylaxis Verified 08/14/23 19:33 Surgical - Exam Vital Signs Temp Pulse Resp BP Pulse Ox 98.1 F 100 20 186/94 98 08/14/23 16:30 08/14/23 16:30 08/14/23 16:30 08/14/23 16:30 08/14/23 16:30 Results - Labs 08/18/23 05:47 08/18/23 05:47 Abnormal Lab Results - Last 24 Hours (Table) 08/16/23 08/17/23 08/17/23 Range/Units 13:30 17:17 20:33 WBC (4.50-10.00) X 10*3/uL RBC (4.40-5.60) X 10*6/uL Hgb (13.0-17.0) g/dL Hct (39.6-50.0) % RDW (11.5-14.5) % Plt Count (140-440) X 10*3/uL Lymphocytes # (Manual) (0.90-5.00) X 10*3/uL Monocytes # (Manual) (0.20-1.00) X 10*3/uL Eosinophils # (Manual) (0.04-0.35) X 10*3/uL NRBC/100 WBC Diff (0.00-0.01) X 10*3/uL Immature Plt Fraction (1.1-6.1) % Microcytosis (manual) Sodium (135-145) mmol/L Carbon Dioxide (21.6-31.8) mmol/L Anion Gap (4.00-12.00) mmol/L BUN (9.0-27.0) mg/dL Creatinine (0.6-1.5) mg/dL Est GFR (CKD-EPI) (>=60) BUN/Creatinine Ratio (12.00-20.00) Ratio Glucose (70-110) mg/dL POC Glucose (mg/dL) 236 H 392 H (70-110) mg/dL Uric Acid (3.7-8.7) mg/dL Total Protein (6.2-8.2) g/dL Albumin (3.8-4.9) g/dL Saqhu-7-Iwiifaplo 0.50 H (0.10-0.40) g/dL 08/18/23 08/18/23 08/18/23 Range/Units 05:47 05:47 06:52 WBC 33.85 H (4.50-10.00) X 10*3/uL RBC 3.30 L (4.40-5.60) X 10*6/uL Hgb 9.3 L (13.0-17.0) g/dL Hct 28.5 L (39.6-50.0) % RDW 14.9 H (11.5-14.5) % Plt Count 40 L (140-440) X 10*3/uL Lymphocytes # (Manual) 8.46 H (0.90-5.00) X 10*3/uL Monocytes # (Manual) 3.72 H (0.20-1.00) X 10*3/uL Eosinophils # (Manual) 0 L (0.04-0.35) X 10*3/uL NRBC/100 WBC Diff 0.26 H (0.00-0.01) X 10*3/uL Immature Plt Fraction 8.8 H (1.1-6.1) % Microcytosis (manual) 2+ A Sodium 132 L (135-145) mmol/L Carbon Dioxide 21.3 L (21.6-31.8) mmol/L Anion Gap 14.70 H (4.00-12.00) mmol/L BUN 60.2 H (9.0-27.0) mg/dL Creatinine 5.4 H (0.6-1.5) mg/dL Est GFR (CKD-EPI) 11 L (>=60) BUN/Creatinine Ratio 11.15 L (12.00-20.00) Ratio Glucose 459 H (70-110) mg/dL POC Glucose (mg/dL) 416 H (70-110) mg/dL Uric Acid 3.1 L (3.7-8.7) mg/dL Total Protein 5.5 L (6.2-8.2) g/dL Albumin 3.4 L (3.8-4.9) g/dL Zigdr-0-Udjrtghrv (0.10-0.40) g/dL 08/18/23 08/18/23 Range/Units 06:54 12:02 WBC (4.50-10.00) X 10*3/uL RBC (4.40-5.60) X 10*6/uL Hgb (13.0-17.0) g/dL Hct (39.6-50.0) % RDW (11.5-14.5) % Plt Count (140-440) X 10*3/uL Lymphocytes # (Manual) (0.90-5.00) X 10*3/uL Monocytes # (Manual) (0.20-1.00) X 10*3/uL Eosinophils # (Manual) (0.04-0.35) X 10*3/uL NRBC/100 WBC Diff (0.00-0.01) X 10*3/uL Immature Plt Fraction (1.1-6.1) % Microcytosis (manual) Sodium (135-145) mmol/L Carbon Dioxide (21.6-31.8) mmol/L Anion Gap (4.00-12.00) mmol/L BUN (9.0-27.0) mg/dL Creatinine (0.6-1.5) mg/dL Est GFR (CKD-EPI) (>=60) BUN/Creatinine Ratio (12.00-20.00) Ratio Glucose (70-110) mg/dL POC Glucose (mg/dL) 428 H 358 H (70-110) mg/dL Uric Acid (3.7-8.7) mg/dL Total Protein (6.2-8.2) g/dL Albumin (3.8-4.9) g/dL Tesap-1-Ajbkgzjwr (0.10-0.40) g/dL Microbiology - Last 24 Hours (Table) 08/14/23 18:23 Blood Culture - Preliminary Blood 08/14/23 18:15 Blood Culture - Preliminary Blood Diabetes panel 08/18/23 Range/Units 05:47 Sodium 132 L (135-145) mmol/L Potassium 4.2 (3.5-5.5) mmol/L Chloride 96 (96-109) mmol/L Carbon Dioxide 21.3 L (21.6-31.8) mmol/L BUN 60.2 H (9.0-27.0) mg/dL Creatinine 5.4 H (0.6-1.5) mg/dL Glucose 459 H (70-110) mg/dL Calcium 8.7 (8.7-10.3) mg/dL AST 20 (14-35) U/L ALT 14 (10-49) U/L Alkaline Phosphatase 104 (41-126) U/L Total Protein 5.5 L (6.2-8.2) g/dL Albumin 3.4 L (3.8-4.9) g/dL Calcium panel 08/18/23 Range/Units 05:47 Calcium 8.7 (8.7-10.3) mg/dL Phosphorus 4.6 (2.4-5.1) mg/dL Albumin 3.4 L (3.8-4.9) g/dL Pituitary panel 08/18/23 Range/Units 05:47 Sodium 132 L (135-145) mmol/L Potassium 4.2 (3.5-5.5) mmol/L Chloride 96 (96-109) mmol/L Carbon Dioxide 21.3 L (21.6-31.8) mmol/L BUN 60.2 H (9.0-27.0) mg/dL Creatinine 5.4 H (0.6-1.5) mg/dL Glucose 459 H (70-110) mg/dL Calcium 8.7 (8.7-10.3) mg/dL Adrenal panel 08/18/23 Range/Units 05:47 Sodium 132 L (135-145) mmol/L Potassium 4.2 (3.5-5.5) mmol/L Chloride 96 (96-109) mmol/L Carbon Dioxide 21.3 L (21.6-31.8) mmol/L BUN 60.2 H (9.0-27.0) mg/dL Creatinine 5.4 H (0.6-1.5) mg/dL Glucose 459 H (70-110) mg/dL Calcium 8.7 (8.7-10.3) mg/dL Total Bilirubin 0.4 (0.3-1.2) mg/dL AST 20 (14-35) U/L ALT 14 (10-49) U/L Alkaline Phosphatase 104 (41-126) U/L Total Protein 5.5 L (6.2-8.2) g/dL Albumin 3.4 L (3.8-4.9) g/dL
[2023-08-18] MEDS: SODIUM CHLORIDE 0.9% 500 ML 500 ML IV ONE (13:55)
[2023-08-18] MEDS: MIDAZOLAM 2 MG/2 ML VIAL IVP ONE (14:03)
[2023-08-18] MEDS: LIDOCAINE 1% INJ 10MG/ML (30 ML VIAL-PF) SQ ONE (14:03)
[2023-08-18] MEDS: fentaNYL (PF) 50 MCG/1 ML VIAL IVP ONE (14:03)
[2023-08-18] MEDS: HEPARIN SODIUM 1,000 UN/ML (10ML VL) MISCELLANE ONE ×2 (14:20)
--- NOTE | 2023-08-18 14:32 | P.PCN ---
Description of Procedure: Pre-op diagnosis acute chronic renal failure Postop the same Procedure placement of 23 cm dialysis catheter right jugular approach Patient brought to the Biomedical [employer] right of the neck and chest was prepped Sterile manner. 1% lidocaine were in for the neck and chest area. With IV sedation. Ultrasound-guided micropuncture introduced right jugular vein and micropuncture guide was parked. Under fluoroscopy control after that we placed 4 [place]an sheath. A guidewire then replaced the regular guidewire initial spot of the inferior vena cava. Tunnel was created through the tunnel we brought 23 cm dialysis catheter. Dilator was advanced. Then we placed a sheath on the top of the guidewire guidewire was removed. Through the sheath and use dialysis catheter sheath was removed tip of the cath in superior vena cava atrial junction flushed with heparin saline hep-locked secured with 3-0 nylon pressure dressing applied patient tolerated procedure well we will do the x-ray of the chest patient transferred to the recovery room in satisfied condition
--- NOTE | 2023-08-18 15:04 | IR ---
PICC Insertion: EXAMINATION TYPE: IR cvc insert central tunneled Intraoperative/procedural fluoroscopic services were provided. CLINICAL INDICATION:Male, 62 years old with history of RENAL FAILURE/1.5MIN FLUORO [id number]; , [facility] Total fluoroscopy time is 1.5 min. DAP: Not reported Gycm2 uGym2 Please see the operative/procedural note for further details.
--- NOTE | 2023-08-18 15:28 | XR ---
EXAMINATION TYPE: XR chest 1V portable DATE OF EXAM: 08/18/2023 3:13 PM CLINICAL INDICATION:Male, 62 years old with history of dialysis cath placement; [facility] COMPARISON: Chest radiographs from 08/14/2023 TECHNIQUE: XR chest 1V portable Frontal view of the chest. FINDINGS: Lungs/Pleura: There is no evidence of pleural effusion, focal consolidation, or pneumothorax. Pulmonary vascularity: Unremarkable. Heart/mediastinum: Cardiomediastinal silhouette is unremarkable. Musculoskeletal: No acute osseous pathology. Other findings: None Lines/Tubes: Right internal jugular central venous catheter with distal tip at the cavoatrial junction. IMPRESSION: No acute cardiopulmonary disease/process.
--- NOTE | 2023-08-18 15:39 | P.PN ---
Subjective Progress Note Date: 08/18/23 Patient is seen in follow-up for acute kidney injury on chronic kidney disease. Creatinine up to 5.4 today. Receiving IV fluids however has noticed significant decrease in urine output past 24hrs. Discussed need to start HD and he is agreeable. Vital signs are stable. General: No acute distress. HEENT: Head exam is unremarkable. LUNGS: No audible rhonchi or wheezes. HEART: Rate and Rhythm are regular. ABDOMEN: Obese, nontender. EXTREMITITES: No edema. Skin lesions noted. Objective - Vital Signs Vital signs: Vital Signs Temp 97.9 F 08/18/23 06:45 Pulse 94 08/18/23 06:45 Resp 21 08/18/23 06:45 BP 152/79 08/18/23 06:45 Pulse Ox 94 L 08/18/23 06:45 FiO2 21 08/17/23 09:03 Intake & Output 08/17/23 08/18/23 08/18/23 18:59 06:59 18:59 Intake Total 660 1800 Output Total 100 221 25 Balance 560 1579 -25 Intake: Intake, IV Titration 1800 Amount Dextrose 5% in Water 1, 1800 000 ml @ 150 mls/hr IV . Q7H40M NGUYỄN with Sodium Bicarb (1 Meq/ml) 150 ml Rx#:[id number] Oral 660 Output: Urine 100 100 25 Post Void Residual 121 Other: Voiding Method Toilet Toilet Toilet Urinal Urinal Urinal # Voids 1 - Labs CBC & Chem 7: 08/18/23 05:47 08/18/23 05:47 Labs: Abnormal Lab Results - Last 24 Hours (Table) 08/16/23 08/17/23 08/17/23 Range/Units 13:30 12:16 17:17 Sodium (135-145) mmol/L Carbon Dioxide (21.6-31.8) mmol/L Anion Gap (4.00-12.00) mmol/L BUN (9.0-27.0) mg/dL Creatinine (0.6-1.5) mg/dL Est GFR (CKD-EPI) (>=60) BUN/Creatinine Ratio (12.00-20.00) Ratio Glucose (70-110) mg/dL POC Glucose (mg/dL) 133 H 236 H (70-110) mg/dL Uric Acid (3.7-8.7) mg/dL Total Protein (6.2-8.2) g/dL Albumin (3.8-4.9) g/dL Smnme-5-Ijrvefcfs 0.50 H (0.10-0.40) g/dL 08/17/23 08/18/23 08/18/23 Range/Units 20:33 05:47 06:52 Sodium 132 L (135-145) mmol/L Carbon Dioxide 21.3 L (21.6-31.8) mmol/L Anion Gap 14.70 H (4.00-12.00) mmol/L BUN 60.2 H (9.0-27.0) mg/dL Creatinine 5.4 H (0.6-1.5) mg/dL Est GFR (CKD-EPI) 11 L (>=60) BUN/Creatinine Ratio 11.15 L (12.00-20.00) Ratio Glucose 459 H (70-110) mg/dL POC Glucose (mg/dL) 392 H 416 H (70-110) mg/dL Uric Acid 3.1 L (3.7-8.7) mg/dL Total Protein 5.5 L (6.2-8.2) g/dL Albumin 3.4 L (3.8-4.9) g/dL Mcuyq-0-Ppintxlif (0.10-0.40) g/dL 08/18/23 Range/Units 06:54 Sodium (135-145) mmol/L Carbon Dioxide (21.6-31.8) mmol/L Anion Gap (4.00-12.00) mmol/L BUN (9.0-27.0) mg/dL Creatinine (0.6-1.5) mg/dL Est GFR (CKD-EPI) (>=60) BUN/Creatinine Ratio (12.00-20.00) Ratio Glucose (70-110) mg/dL POC Glucose (mg/dL) 428 H (70-110) mg/dL Uric Acid (3.7-8.7) mg/dL Total Protein (6.2-8.2) g/dL Albumin (3.8-4.9) g/dL Ptpnc-9-Rdrlxcdpy (0.10-0.40) g/dL Microbiology - Last 24 Hours (Table) 08/14/23 18:23 Blood Culture - Preliminary Blood 08/14/23 18:15 Blood Culture - Preliminary Blood Assessment and Plan Plan: Assessment: 1. Acute kidney injury secondary to ATN secondary to spontaneous tumor lysis syndrome. Concern for tubular obstruction and ischemia from lymphomatous involvement. Creatinine up to 5.4 today. Kidney ultrasound from August 08, 2023 showed normal-sized kidneys without evidence of hydronephrosis. UA positive for protein and hematuria. 2. Chronic kidney disease stage IIIa with baseline creatinine 1.3-1.4 in 2022. Suspect underlying diabetic kidney disease. 3. Recently diagnosed malignancy. Lymphoma versus melanoma versus other. Oncology following. Axillary node biopsy results pending. 4. Hypokalemia from poor intake. Replaced. Better. 5. Metabolic acidosis secondary to acute kidney injury on IV fluids. 6. Diabetes mellitus. 7. Benign hypertension. Exacerbated by steroids. 8. Hypomagnesemia from poor intake. Replaced. Better. 9. Thrombocytopenia. Received platelet transfusions this admission. Hematology following. 10. 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 Status post rasburicase. Plan: Urine output now oliguric with rising creatinine. Discussed need for starting HD which patient was agreeable to. Plan for HD today and then again Sunday. Consult vascular surgery for catheter placement. UPC 1.64 g. Follow-up serologies. Negative so far. Avoid nephrotoxins. Continue to monitor for renal recovery. May need kidney biopsy for definitive diagnosis. Discussed with patient.
[2023-08-18] MEDS ORDERED: HYDROmorphone 1 MG/ML 1 ML SYRINGE IM PRN (17:20)
[2023-08-18 17:22] LABS: Glucose,Whole Blood 254 mg/dL (70-110)
[2023-08-18] MEDS: HYDROmorphone 1 MG/ML 1 ML SYRINGE IVP PRN (17:53)
--- NOTE | 2023-08-18 18:03 | P.PN ---
Subjective Progress Note Date: 08/18/23 Chief Complaint: Sepsis leukocytosis, thrombocytopenia, newly diagnosed left aggressive lymp 62-year-old gentleman went off my office patient was known for the last 10 years with past medical history of type 2 diabetes, chronic kidney disease, atherosclerotic heart disease, hypertension, hyperlipidemia, severe obstructive sleep apnea, recurrent asthma, severe neuropathy mild obesity who had seen dermatology over 2 weeks ago apparently for reactive dermatitis all over his body looks like small tiny sarcoma or granuloma but has been getting much worse. Ended up having biopsy at Dr. Reyna's office 2 weeks ago and were waiting for the result. Patient was seen in our office for last 10 days with progressive worsening symptoms consistent with severe tiredness fatigue and overall not feeling well surprisingly he started having an acute kidney injury with acute tubular necrosis with worsening kidney function creatinine climbing up from 1.6- 3.6 and short period of time. Had an appointment to see nephrology on Sunday for the last blood test has on last week shows reactive leukocytosis with significant thrombocytopenia and mild anemia repeat CBC today shows his white blood cell 40,000 with platelet count around 40,000 as well. 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 With a high suspicion for sepsis and worsening progressive acute kidney failure and possible of sepsis patient in the coming to the emergency department for was seen and evaluated blood culture was initiated repeat blood test and patient ended up going for CT of the abdomen and pelvis surprisingly shows new right axillary adenopathy measuring 3.6 cm with multiple lymphadenopathy all over also had splenomegaly with hepatomegaly and adrenal adenoma as well also finding consistent with lymph node all over consistent with lymphoma and circumferential bladder wall thickening and might represent chronic cystitis. We decided to admit patient to the hospital at this point specially declining kidney function will be seen oncology probably develop pathway to ask general surgery to do biopsy from the axillary lymph node for fast diagnosis as well to decide further management also gentle hydration. Repeat kidney function patient will be seen nephrology as inpatient as well if worsening symptoms patient might be close to need dialysis as well. 08/15/2023: He was seen today by oncology revealed a finding consistent with lymphoma patient will have axilla lymph node for biopsy done by general surgery tomorrow also oncology are planning to do PET scan prior to any treatment or management as for potential of bone marrow biopsy needs to be determined. Nephrology seen patient agree this is an acute tubular necrosis most likely ischemic from lymphomatosis involvement with significant increase in creatinine which may patient has stage IIIa chronic kidney disease. Agree to continue hydration check UA check renal ultrasound and continue to scan the bladder will add oral bicarbonate and avoid any nephrotoxic agent. Again general surgery seen patient and agree to do right axilla lymph node biopsy tomorrow continue to watch his blood level. 08-16-2023: Is doing well and is scheduled for biopsy with Dr. Ross today, his white blood cell is down to 30,000 platelets are down to 38,000 as well his creatinine is much worse at 3.63 with bun of 42, his acute kidney injury has declined more mostly related to ischemic change from lymphomatosis involvement causing acute tubular necrosis. As for his lymphoma still been still be careful with oncology waiting for the final culture the patient will be going for PET scan possibly in the next few days before deciding the course of treatment. 08/17/2023: Patient was doing very well and upon biopsy yesterday successfully waiting for the final result, will see if oncology have any plan to do while st ill in the hospital or patient can be discharged and continue the rest of his management as an outpatient. 08/18/2023: Awaiting for transfer to [facility] still waiting for insurance approval at this point patient declined a lot more seen his creatinine is up to 5.4 bun 60. White blood cell still 33,000 hemoglobin 9.3 and platelet count 40,000. He has seen oncology and nephrology patient might read urgent dialysis at this point and as for the biopsy results still pending at this point but seems like patient is having an aggressive type of lymphoma might benefit from tertiary center being an [facility]. He is in slight bit increased pain from the surgical site along with his lower back has been using smaller dose of Dilaudid on as-needed basis. Blood sugar still mildly elevated will titrate his NovoLog and long-acting insulin today furthermore. Review of Systems: CONSTITUTIONAL: Mildly overweight does not look comfortable no major respiratory distress. EYES: No icterus sclerae, no conjunctivitis. EARS, NOSE, MOUTH, THROAT, and FACE: No sore throat, lymphadenopathy, carotid bruits or deformity. RESPIRATORY: Mild shortness of breath no wheezes. CARDIOVASCULAR: No CP, Palpitation, PND, Orthopnea, or angina. GASTROINTESTINAL: Slight abdominal discomfort with ventral hernia no nausea or vomiting slight change in bowel habit as well. GENITOURINARY: Decrease in kidney function with less frequent urination without any hematuria at this point. INTEGUMENT/BREAST: Lymph node enlargement. HEMATOLOGIC/LYMPHATIC: Lymph node enlargement with mild anemia. MUSCULOSKELTAL: Negative for Myalgia or arthralgia. NEURLOGICAL: No LOC, Sz or syncope, blurred vision dizziness or abnormality.. BEHAVIORAL/PSYCH: Negative. ENDOCRINE: Negative. Physical examination: General Appearance: Alert, slightly overweight, does not look comfortable but no respiratory distress. Neck HEENT: Supple with slight lymph node enlargement without any thyroid enlargement. Lungs: Clear to auscultation without crackles slight rhonchi no wheezes. Chest Wall: Chest wall normal expansion with deep inspiration no tenderness and no deformity was found on exam, no costochondral pain or discomfort. Heart: Regular rate and rhythm, S1, S2 normal, no murmur, rub or gallop. Back: Symmetric, no curvature, ROM normal, no CVA tenderness. Abdomen: Positive ventral hernia, slightly enlarged spleen, mildly hepatomegaly with mild discomfort in the mid abdominal region area. Extremities: Extremities normal, atraumatic, no cyanosis or edema. Pulses: 2+ and symmetric. Skin: Small granulated rash all over his body including the face and neck the chest wall area more like reactive dermatitis Neurologic: Alert oriented x3 cranial nerves II through XII intact, no motor deficit, no abnormal balance or gait. Assessment and plan: - newly diagnosis of aggressive lymphoma: Seems like very aggressive type of lymphoma biopsy results still pending at this point patient still seen oncology but in process to be transferred to [facility]. - acute kidney injury with acute tubular necrosis: Mostly from tubular obstruction and ischemia from lymphomatosis involvement, much worsening kidney function process probably for hemodialysis become slightly red more urgent at this point. - severe thrombocytopenia most likely reactive to either sepsis or his lymphoma may be there is any involvement of his lymphoma in the bone marrow especially if this is an aggressive type of lymphoma causing the suppressive bone marrow to have thrombocytopenia. Patient might require platelet transfusion and prepare f or his biopsy. - type 2 diabetes: Will titrate his Tresiba higher today at least 10 units and NovoLog will go up to 5 extra units AC meals besides sliding scales. - chronic neuropathy: Has not been on any medication lately but slightly bit worse. - chronic asthma has been seen pulmonary regular basis remain on albuterol and budesonide. - severe BPH: Has been on Flomax 0.4 mg daily. - hyperlipidemia will continue simvastatin 40 mg a day. - atherosclerotic heart disease has been seeing cardiology last stress test was from April last year. - hiatal hernia with worsening symptoms of GERD: Remain on omeprazole 20 mg twice a day on regular basis. Discussion: Comorbidity is much higher at this point patient is declining quite fast specially with the type of lymphoma and the severity of kidney function decline. While he is waiting for an arrangement with transfer patient probably will start dialysis. Objective - Vital Signs Vital signs: Vital Signs Temp 97.9 F 08/18/23 06:45 Pulse 94 08/18/23 06:45 Resp 08/18/23 06:45 BP 152/79 08/18/23 06:45 Pulse Ox 94 L 08/18/23 06:45 FiO2 08/17/23 09:03 Intake & Output 08/17/23 08/18/23 08/18/23 18:59 06:59 18:59 Intake Total 660 1800 Output Total 100 221 25 Balance 560 1579 -25 Intake: Intake, IV Titration 1800 Amount Dextrose 5% in Water 1, 1800 000 ml @ 150 mls/hr IV . Q7H40M NGUYỄN with Sodium Bicarb (1 Meq/ml) 150 ml Rx#:[id number] Oral 660 Output: Urine 100 100 25 Post Void Residual 121 Other: Voiding Method Toilet Toilet Urinal Urinal # Voids 1 - Labs CBC & Chem 7: 08/18/23 05:47 08/18/23 05:47 Labs: Abnormal Lab Results - Last 24 Hours (Table) 08/16/23 08/17/23 08/17/23 Range/Units 13:30 05:45 12:16 Carbon Dioxide 18.8 L (21.6-31.8) mmol/L Anion Gap 14.20 H (4.00-12.00) mmol/L BUN 47.9 H (9.0-27.0) mg/dL Creatinine 4.4 H (0.6-1.5) mg/dL Est GFR (CKD-EPI) 14 L (>=60) BUN/Creatinine Ratio 10.89 L (12.00-20.00) Ratio Glucose 156 H (70-110) mg/dL POC Glucose (mg/dL) 133 H (70-110) mg/dL Vyolu-7-Yecrvmpzf 0.50 H (0.10-0.40) g/dL 08/17/23 08/17/23 08/18/23 Range/Units 17:17 20:33 06:52 Carbon Dioxide (21.6-31.8) mmol/L Anion Gap (4.00-12.00) mmol/L BUN (9.0-27.0) mg/dL Creatinine (0.6-1.5) mg/dL Est GFR (CKD-EPI) (>=60) BUN/Creatinine Ratio (12.00-20.00) Ratio Glucose (70-110) mg/dL POC Glucose (mg/dL) 236 H 392 H 416 H (70-110) mg/dL Kklyg-1-Byeseekwy (0.10-0.40) g/dL 08/18/23 Range/Units 06:54 Carbon Dioxide (21.6-31.8) mmol/L Anion Gap (4.00-12.00) mmol/L BUN (9.0-27.0) mg/dL Creatinine (0.6-1.5) mg/dL Est GFR (CKD-EPI) (>=60) BUN/Creatinine Ratio (12.00-20.00) Ratio Glucose (70-110) mg/dL POC Glucose (mg/dL) 428 H (70-110) mg/dL Qbdes-0-Pzmpngyqw (0.10-0.40) g/dL Microbiology - Last 24 Hours (Table) 08/14/23 18:23 Blood Culture - Preliminary Blood 08/14/23 18:15 Blood Culture - Preliminary Blood
--- NOTE | 2023-08-18 19:53 | P.PN ---
Subjective Progress Note Date: 08/18/23 Principal diagnosis: lymphoma, TLS In f/u today, pt c/o bilateral hip and low back pain, pain regimen is improving pain. Pt reported tingling sensation in LUE from elbow to hand that has since resolved. He states this has occurred the other day as well but has experienced similar symptoms before this admission. Denies severe headache, visual changes, n/v and weakness. CT cervical spine was obtained and showed negative for acute findings. Tumor lysis labs negative today. WBC 33.8, Hgb 9.3, plt 40,000. Unfortunately kidney function has continued to worsen, dialysis catheter placed today. Awaiting transfer to [facility] Objective - Vital Signs Vital signs: Vital Signs Temp 98.7 F 08/18/23 12:05 Pulse 97 08/18/23 12:05 Resp 17 08/18/23 12:05 BP 141/65 08/18/23 12:05 Pulse Ox 94 L 08/18/23 12:05 FiO2 21 08/17/23 09:03 Intake & Output 08/17/23 08/18/23 08/18/23 18:59 06:59 18:59 Intake Total 660 1800 50 Output Total 100 221 25 Balance 560 1579 25 Intake: IV 50 Intake, IV Titration 1800 Amount Dextrose 5% in Water 1, 1800 000 ml @ 150 mls/hr IV . Q7H40M NGUYỄN with Sodium Bicarb (1 Meq/ml) 150 ml Rx#:[id number] Oral 660 Output: Urine 100 100 25 Post Void Residual 121 Other: Voiding Method Toilet Toilet Toilet Urinal Urinal Urinal # Voids 1 - Constitutional General appearance: Present: average body habitus, no acute distress - EENT Eyes: Present: anicteric sclerae, EOMI ENT: Present: hearing grossly normal - Respiratory Details: breathing is even and unlabored - Cardiovascular Details: skin warm and dry - Gastrointestinal General gastrointestinal: Present: soft. Absent: tenderness - Integumentary Integumentary Comment(s): diffuse lesions to face, back and chest Integumentary: Absent: cyanotic - Neurologic Neurologic Comment(s): no focal deficits noted - Musculoskeletal Musculoskeletal: Present: strength equal bilaterally - Psychiatric Psychiatric: Present: A&O x's 3 - Labs CBC & Chem 7: 08/18/23 05:47 08/18/23 05:47 Labs: Abnormal Lab Results - Last 24 Hours (Table) 08/16/23 08/17/23 08/17/23 Range/Units 13:30 17:17 20:33 WBC (4.50-10.00) X 10*3/uL RBC (4.40-5.60) X 10*6/uL Hgb (13.0-17.0) g/dL Hct (39.6-50.0) % RDW (11.5-14.5) % Plt Count (140-440) X 10*3/uL Lymphocytes # (Manual) (0.90-5.00) X 10*3/uL Monocytes # (Manual) (0.20-1.00) X 10*3/uL Eosinophils # (Manual) (0.04-0.35) X 10*3/uL NRBC/100 WBC Diff (0.00-0.01) X 10*3/uL Immature Plt Fraction (1.1-6.1) % Microcytosis (manual) Sodium (135-145) mmol/L Carbon Dioxide (21.6-31.8) mmol/L Anion Gap (4.00-12.00) mmol/L BUN (9.0-27.0) mg/dL Creatinine (0.6-1.5) mg/dL Est GFR (CKD-EPI) (>=60) BUN/Creatinine Ratio (12.00-20.00) Ratio Glucose (70-110) mg/dL POC Glucose (mg/dL) 236 H 392 H (70-110) mg/dL Uric Acid (3.7-8.7) mg/dL Total Protein (6.2-8.2) g/dL Albumin (3.8-4.9) g/dL Pphwa-2-Feeavcqwm 0.50 H (0.10-0.40) g/dL 08/18/23 08/18/23 08/18/23 Range/Units 05:47 05:47 06:52 WBC 33.85 H (4.50-10.00) X 10*3/uL RBC 3.30 L (4.40-5.60) X 10*6/uL Hgb 9.3 L (13.0-17.0) g/dL Hct 28.5 L (39.6-50.0) % RDW 14.9 H (11.5-14.5) % Plt Count 40 L (140-440) X 10*3/uL Lymphocytes # (Manual) 8.46 H (0.90-5.00) X 10*3/uL Monocytes # (Manual) 3.72 H (0.20-1.00) X 10*3/uL Eosinophils # (Manual) 0 L (0.04-0.35) X 10*3/uL NRBC/100 WBC Diff 0.26 H (0.00-0.01) X 10*3/uL Immature Plt Fraction 8.8 H (1.1-6.1) % Microcytosis (manual) 2+ A Sodium 132 L (135-145) mmol/L Carbon Dioxide 21.3 L (21.6-31.8) mmol/L Anion Gap 14.70 H (4.00-12.00) mmol/L BUN 60.2 H (9.0-27.0) mg/dL Creatinine 5.4 H (0.6-1.5) mg/dL Est GFR (CKD-EPI) 11 L (>=60) BUN/Creatinine Ratio 11.15 L (12.00-20.00) Ratio Glucose 459 H (70-110) mg/dL POC Glucose (mg/dL) 416 H (70-110) mg/dL Uric Acid 3.1 L (3.7-8.7) mg/dL Total Protein 5.5 L (6.2-8.2) g/dL Albumin 3.4 L (3.8-4.9) g/dL Wawfq-2-Jslbnitol (0.10-0.40) g/dL 08/18/23 08/18/23 Range/Units 06:54 12:02 WBC (4.50-10.00) X 10*3/uL RBC (4.40-5.60) X 10*6/uL Hgb (13.0-17.0) g/dL Hct (39.6-50.0) % RDW (11.5-14.5) % Plt Count (140-440) X 10*3/uL Lymphocytes # (Manual) (0.90-5.00) X 10*3/uL Monocytes # (Manual) (0.20-1.00) X 10*3/uL Eosinophils # (Manual) (0.04-0.35) X 10*3/uL NRBC/100 WBC Diff (0.00-0.01) X 10*3/uL Immature Plt Fraction (1.1-6.1) % Microcytosis (manual) Sodium (135-145) mmol/L Carbon Dioxide (21.6-31.8) mmol/L Anion Gap (4.00-12.00) mmol/L BUN (9.0-27.0) mg/dL Creatinine (0.6-1.5) mg/dL Est GFR (CKD-EPI) (>=60) BUN/Creatinine Ratio (12.00-20.00) Ratio Glucose (70-110) mg/dL POC Glucose (mg/dL) 428 H 358 H (70-110) mg/dL Uric Acid (3.7-8.7) mg/dL Total Protein (6.2-8.2) g/dL Albumin (3.8-4.9) g/dL Wwnns-5-Folbxfsdz (0.10-0.40) g/dL Microbiology - Last 24 Hours (Table) 08/14/23 18:23 Blood Culture - Preliminary Blood 08/14/23 18:15 Blood Culture - Preliminary Blood - Imaging and Cardiology CT cervical spine and ECHO reviewed Assessment and Plan (1) Tumor lysis syndrome Current Visit: Yes Status: Acute Priority: High Code(s): E88.3 - TUMOR LYSIS SYNDROME SNOMED Code(s): 477199070 (2) Acute kidney injury Current Visit: Yes Status: Acute Priority: High Code(s): N17.9 - ACUTE KIDNEY FAILURE, UNSPECIFIED SNOMED Code(s): 34216994 (3) Leukocytosis Current Visit: Yes Status: Acute Priority: High Code(s): D72.829 - ELEVATED WHITE BLOOD CELL COUNT, UNSPECIFIED SNOMED Code(s): 604537042 (4) Lymphoma Current Visit: Yes Status: Acute Priority: High Code(s): C85.90 - NON- HODGKIN LYMPHOMA, UNSPECIFIED, UNSPECIFIED SITE SNOMED Code(s): 654731393 (5) Thrombocytopenia Current Visit: Yes Status: Acute Priority: High Code(s): D69.6 - THROMBOCYTOPENIA, UNSPECIFIED SNOMED Code(s): 950371163 Plan: 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 Over the last 3 weeks have multiplied exponentially and now cover his whole body, more dense on the head, neck, upper back and chest, scant on the extremities -Pathology report obtained. Collected 07/25/2023. Neoplasm of uncertain behavior versus melanoma versus granuloma versus lymphoblastic T-cell lymphoma are the differentials. Lesion is positive for CD5 and CD56 immunostains. Additional studies will need to be performed to confirm the diagnosis. -S/p repeat skin biopsy, biopsy and flow cytometry requested. Results pending -STAT tumor lysis labs, rule out spontaneous TLS due to worsening kidney function, revealing TLS -100mg allopurinol and 1 dose Elitek ordered -Optimally, patients with lymphoma should have staging PET scan prior to beginning treatment but, urgency of treatment is going to have to be considered -Spoke with Dr. Albino Brannon at [facility] regarding case, and he is recommending transfer for higher level of care and pt will need likely need to start inpt treatment due to aggressive nature of lymphoma. Spoke with IM team to update on POC. Transfer has been accepted. However due to pending inpt authorization at [facility], can not transfer patient until this is completed. Spoke with case management, and inpt auth will not be able to be obtained till Sunday. Will f/u with case management team -Pulse dose dex started -Echocardiogram and Picc line ordered for anticipation of treatment. Echocardiogram shows normal LV function, EF 55-60%. Picc line hopefully will be scheduled for Sunday, can obtain at transferring facility if needed TLS: -Elevated uric acid and phosphorus levels with worsening kidney function. 1 dose of Elitek ordered. -Allopurinol 100 mg daily because of renal function. -Repeat TLS labs daily. Tumor lysis labs negative today. If uric acid greater than 8 will order additional dose of Elitek -Unfortunately kidney function has continued to decline. Dialysis catheter placed today, with plan to begin HD -Nephrology following Time with Patient: Greater than 30
[2023-08-18 20:48] LABS: Glucose,Whole Blood 287 mg/dL (70-110)
[2023-08-18] MEDS: INSULIN DETEMIR (LEVEMIR) 100 UNIT/ML SYR SQ SCH (21:11)
[2023-08-18 22:42] LABS: Glucose,Whole Blood 276 mg/dL (70-110)
[2023-08-19 07:05] LABS: Glucose,Whole Blood 363 mg/dL (70-110)
[2023-08-19] MEDS: INSULIN ASPART (NovoLOG) 100 UNIT/ML VIAL SQ SCH (08:14)
--- NOTE | 2023-08-19 09:30 | P.PN ---
Subjective Progress Note Date: 08/19/23 Patient main stable. He has had some drainage from his back incision. On exam vital signs appear stable. Patient will continue receive supportive care. Objective - Vital Signs Vital signs: Vital Signs Temp 97.6 F 08/19/23 07:08 Pulse 108 H 08/19/23 07:08 Resp 20 08/19/23 07:08 BP 159/82 08/19/23 07:08 Pulse Ox 92 L 08/19/23 07:08 FiO2 21 08/17/23 09:03 Intake & Output 08/18/23 08/19/23 08/19/23 18:59 06:59 18:59 Intake Total 100 400 Output Total 25 1200 Balance 75 -800 Intake: IV 100 Hemodialysis 400 Output: Urine 25 Hemodialysis 1200 Other: Voiding Method Toilet Toilet Urinal Urinal # Voids 1 0 - Labs CBC & Chem 7: 08/18/23 05:47 08/18/23 05:47 Labs: Abnormal Lab Results - Last 24 Hours (Table) 08/18/23 08/18/23 08/18/23 Range/Units 05:47 05:47 05:47 WBC 33.85 H (4.50-10.00) X 10*3/uL RBC 3.30 L (4.40-5.60) X 10*6/uL Hgb 9.3 L (13.0-17.0) g/dL Hct 28.5 L (39.6-50.0) % RDW 14.9 H (11.5-14.5) % Plt Count 40 L (140-440) X 10*3/uL Lymphocytes # (Manual) 8.46 H (0.90-5.00) X 10*3/uL Monocytes # (Manual) 3.72 H (0.20-1.00) X 10*3/uL Eosinophils # (Manual) 0 L (0.04-0.35) X 10*3/uL NRBC/100 WBC Diff 0.26 H (0.00-0.01) X 10*3/uL Immature Plt Fraction 8.8 H (1.1-6.1) % Microcytosis (manual) 2+ A Sodium 132 L (135-145) mmol/L Carbon Dioxide 21.3 L (21.6-31.8) mmol/L Anion Gap 14.70 H (4.00-12.00) mmol/L BUN 60.2 H (9.0-27.0) mg/dL Creatinine 5.4 H (0.6-1.5) mg/dL Est GFR (CKD-EPI) 11 L (>=60) BUN/Creatinine Ratio 11.15 L (12.00-20.00) Ratio Glucose 459 H (70-110) mg/dL POC Glucose (mg/dL) (70-110) mg/dL Hemoglobin A1c 8.7 H (<=6.0) % Uric Acid 3.1 L (3.7-8.7) mg/dL Total Protein 5.5 L (6.2-8.2) g/dL Albumin 3.4 L (3.8-4.9) g/dL 08/18/23 08/18/23 08/18/23 Range/Units 12:02 17:18 20:45 WBC (4.50-10.00) X 10*3/uL RBC (4.40-5.60) X 10*6/uL Hgb (13.0-17.0) g/dL Hct (39.6-50.0) % RDW (11.5-14.5) % Plt Count (140-440) X 10*3/uL Lymphocytes # (Manual) (0.90-5.00) X 10*3/uL Monocytes # (Manual) (0.20-1.00) X 10*3/uL Eosinophils # (Manual) (0.04-0.35) X 10*3/uL NRBC/100 WBC Diff (0.00-0.01) X 10*3/uL Immature Plt Fraction (1.1-6.1) % Microcytosis (manual) Sodium (135-145) mmol/L Carbon Dioxide (21.6-31.8) mmol/L Anion Gap (4.00-12.00) mmol/L BUN (9.0-27.0) mg/dL Creatinine (0.6-1.5) mg/dL Est GFR (CKD-EPI) (>=60) BUN/Creatinine Ratio (12.00-20.00) Ratio Glucose (70-110) mg/dL POC Glucose (mg/dL) 358 H 254 H 287 H (70-110) mg/dL Hemoglobin A1c (<=6.0) % Uric Acid (3.7-8.7) mg/dL Total Protein (6.2-8.2) g/dL Albumin (3.8-4.9) g/dL 08/18/23 08/19/23 Range/Units 22:39 07:04 WBC (4.50-10.00) X 10*3/uL RBC (4.40-5.60) X 10*6/uL Hgb (13.0-17.0) g/dL Hct (39.6-50.0) % RDW (11.5-14.5) % Plt Count (140-440) X 10*3/uL Lymphocytes # (Manual) (0.90-5.00) X 10*3/uL Monocytes # (Manual) (0.20-1.00) X 10*3/uL Eosinophils # (Manual) (0.04-0.35) X 10*3/uL NRBC/100 WBC Diff (0.00-0.01) X 10*3/uL Immature Plt Fraction (1.1-6.1) % Microcytosis (manual) Sodium (135-145) mmol/L Carbon Dioxide (21.6-31.8) mmol/L Anion Gap (4.00-12.00) mmol/L BUN (9.0-27.0) mg/dL Creatinine (0.6-1.5) mg/dL Est GFR (CKD-EPI) (>=60) BUN/Creatinine Ratio (12.00-20.00) Ratio Glucose (70-110) mg/dL POC Glucose (mg/dL) 276 H 363 H (70-110) mg/dL Hemoglobin A1c (<=6.0) % Uric Acid (3.7-8.7) mg/dL Total Protein (6.2-8.2) g/dL Albumin (3.8-4.9) g/dL Microbiology - Last 24 Hours (Table) 08/14/23 18:23 Blood Culture - Preliminary Blood 08/14/23 18:15 Blood Culture - Preliminary Blood
--- NOTE | 2023-08-19 10:26 | XR ---
EXAMINATION TYPE: XR lumbar spine 2 or 3V, XR thoracic spine complete DATE OF EXAM: 08/19/2023 10:05 AM CLINICAL INDICATION:Male, 62 years old with history of Back pain; [facility] COMPARISON: 08/14/2023. TECHNIQUE: XR lumbar spine 2 or 3V, XR thoracic spine complete - Frontal, lateral and coned in L5-S1 lateral views of the spine. FINDINGS: Similar wedging of multiple thoracic vertebrae compared to prior CT 08/14/2023. No evidence of any acute osseous pathology. There is normal alignment of the lumbar vertebral bodies. Mild scatte red disc space narrowing. Multilevel marginal osteophyte formation throughout the visualized spine. T here is facet joint arthropathy throughout the spine. Scattered at least mild neural foraminal stenos is. Right central venous catheter with tip at the right atrium. IMPRESSION: 1. Previous CT on 08/14/2023 demonstrated a 3 mm calculus at the left ureterovesicular junction. Ther e is associated inflammation changes present in the renal sinuses bilaterally suggestive of ascending infection to the kidneys. This can be a source of patient's pain. 2. Similar wedging of the lower thoracic spinal radiograph and multilevel degeneration changes Findings communicated to Dr. Arnold Osborn MD on 08/19/2023 10:[address] Henry Givens.
[2023-08-19] MEDS: HYDROmorphone 2 MG TAB PO PRN (10:28)
[2023-08-19 11:00] LABS: ALT 17 U/L (10-49); AST 54 U/L (14-35); Albumin 3.8 g/dL (3.8-4.9); Albumin/Globulin Ratio 1.73 Ratio (1.60-3.17); Alkaline Phosphatase 230 U/L (41-126); BUN/Creat Ratio 10.33 Ratio (12.00-20.00); Blood Urea Nitrogen 56.8 mg/dL (9.0-27.0); Calcium 8.8 mg/dL (8.7-10.3); Carbon Dioxide 23.9 mmol/L (21.6-31.8); Chloride 91 mmol/L (96-109); Globulin 2.2 g/dL (1.6-3.3); Glucose 370 mg/dL (70-110); Sodium 133 mmol/L (135-145); Total Bilirubin 0.5 mg/dL (0.3-1.2)
[2023-08-19 11:23] LABS: Basophils # (M) 0 X 10*3/uL (0.00-0.10); Eosinophils # (M) 0 X 10*3/uL (0.04-0.35); HCT 26.6 % (39.6-50.0); HGB 8.6 g/dL (13.0-17.0); Immature Platelet Fraction 11.2 % (1.1-6.1); Lymphocytes # (M) 12.83 X 10*3/uL (0.90-5.00); MCH 27.9 pg (27.0-32.0); MCHC 32.3 g/dL (32.0-37.0); MCV 86.4 FL (80.0-97.0); Mean Platelet Volume 11.9 FL (9.5-12.2); Metamyelocytes % 2 % (0-0); Monocytes # (M) 24.91 X 10*3/uL (0.20-1.00); Myelocytes % 1 % (0-0); NRBC Per 100 WBC 0.81 X 10*3/uL (0.00-0.01); Neutrophils # (M) 34.72 X 10*3/uL (1.80-7.70); Neutrophils % (M) 46 %; Platelet Count 51 X 10*3/uL (140-440); Promyelocytes # (M) 0.75 k/uL (0); Promyelocytes % 1 %; RBC 3.08 X 10*6/uL (4.40-5.60); RDW 15.1 % (11.5-14.5); WBC 75.48 X 10*3/uL (4.50-10.00)
--- NOTE | 2023-08-19 11:46 | P.GSCN ---
History of Present Illness Consult date: 08/19/23 History of present illness: 62-year-old gentleman in the hospital with low back pain and knee pain. 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 He had a CAT scan on 08/14/23 that did not show any renal abnormalities. It was reviewed this morning and question whether there may be a 2-3 mm distal ureteral stone on the left knee of the bladder. Patient does have a history of stones. There are no other stones noted. He does not have any symptoms of urinary stones. He has no lower urinary tract symptoms. His urine did show some hematuria. He has no flank pain and abdominal pain nausea or vomiting. His creatinine is elevated. Nephrology felt this is due to ATN tumor lysis syndrome on top of some mild chronic renal insufficiency. There is no evidence obstruction on the computed tomography scan. The previous stone was treated with shockwave lithotripsy in the past. There are no other stones in the kidneys. Review of Systems All systems: negative - Constitutional Denies fever, Denies weight loss - EENT Eyes: denies blurred vision Ears, nose, mouth and throat: Denies dysphagia - Cardiovascular Denies chest pain, Denies shortness of breath - Respiratory Denies cough, Denies 7 - Gastrointestinal Reports as per HPI - Genitourinary Denies dysuria, Denies hematuria - Integumentary Denies rash, Denies unusual bruising - Neurological Denies headaches, Denies syncope - Hematologic/Lymphatic Denies easy bleeding, Denies easy bruising Past Medical History Past Medical History: Asthma, Chest Pain / Angina, Diabetes Mellitus, Hyperlipidemia, Hypertension, Renal Disease, Sleep Apnea/CPAP/BIPAP Additional Past Medical History / Comment(s): uses CPAP, decreased kidney function, umbilical hernia currently, recent adm. for chest pain, no problems found per pt. History of Any Multi-Drug Resistant Organisms: None Reported Past Surgical History: Heart Catheterization, Hernia Repair, Orthopedic Surgery Additional Past Surgical History / Comment(s): left shoulder surg., mult. right ankle surgeries Past Anesthesia/Blood Transfusion Reactions: No Reported Reaction Past Psychological History: No Psychological Hx Reported Smoking Status: Former smoker Medications and Allergies Home Medications Medication Instructions Recorded Confirmed Type Metoprolol Tartrate [Lopressor] 50 mg PO BID 11/29/16 08/14/23 History Pioglitazone [Actos] 30 mg PO DAILY 11/29/16 08/14/23 History Simvastatin 40 mg PO HS 11/29/16 08/14/23 History Albuterol Inhaler [Ventolin Hfa 2 puff INHALATION RT-Q6H PRN 04/12/23 08/14/23 History Inhaler] Insulin Degludec [Tresiba 50 units SQ HS 04/12/23 08/14/23 History Flextouch U-200 Pen] Montelukast [Singulair] 10 mg PO DAILY 04/12/23 08/14/23 History Omeprazole 20 mg PO BID 04/12/23 08/14/23 History Budesonide/Glycopyr/Formoterol 2 puff INHALATION RT-DAILY 08/14/23 08/14/23 History [Breztri Aerosphere Inhaler] Tamsulosin [Flomax] 0.4 mg PO DAILY 08/14/23 08/14/23 History Tirzepatide [Mounjaro] 7.5 mg SQ MO 08/14/23 08/14/23 History Allergies Allergy/AdvReac Type Severity Reaction Status Date / Time shellfish derived [Shellfish] Allergy Mild Itching Verified 08/14/23 19:33 Penicillins Allergy Anaphylaxis Verified 08/14/23 19:33 Surgical - Exam Vital Signs Temp Pulse Resp BP Pulse Ox 98.1 F 100 20 186/94 98 08/14/23 16:30 08/14/23 16:30 08/14/23 16:30 08/14/23 16:30 08/14/23 16:30 - General Multiple skin lesions well developed, well nourished, moderate distress - Eyes normal ocular movement, no icteric - ENT no hearing loss, no congestion - Neck no masses, trachea midline - Respiratory Nasal oxygen normal respiratory effort - Cardiovascular Rhythm: regular - Abdomen Abdomen: soft, non tender, no guarding, no rigid, no rebound - Genitourinary normal penis with no external lesions, testicles present - Integumentary no rash, no abnormal pigmentation - Neurologic no disoriented, no combative - Psychiatric oriented to time, oriented to person, oriented to place, speech is normal, memory intact Results - Labs 08/19/23 05:48 08/19/23 05:44 Abnormal Lab Results - Last 24 Hours (Table) 02/17/24 02/17/24 02/17/24 Range/Units 05:47 05:47 05:47 WBC 33.85 H (4.50-10.00) X 10*3/uL RBC 3.30 L (4.40-5.60) X 10*6/uL Hgb 9.3 L (13.0-17.0) g/dL Hct 28.5 L (39.6-50.0) % RDW 14.9 H (11.5-14.5) % Plt Count 40 L (140-440) X 10*3/uL Lymphocytes # (Manual) 8.46 H (0.90-5.00) X 10*3/uL Monocytes # (Manual) 3.72 H (0.20-1.00) X 10*3/uL Eosinophils # (Manual) 0 L (0.04-0.35) X 10*3/uL NRBC/100 WBC Diff 0.26 H (0.00-0.01) X 10*3/uL Immature Plt Fraction 8.8 H (1.1-6.1) % Microcytosis (manual) 2+ A Sodium 132 L (135-145) mmol/L Chloride (96-109) mmol/L Carbon Dioxide 21.3 L (21.6-31.8) mmol/L Anion Gap 14.70 H (4.00-12.00) mmol/L BUN 60.2 H (9.0-27.0) mg/dL Creatinine 5.4 H (0.6-1.5) mg/dL Est GFR (CKD-EPI) 11 L (>=60) BUN/Creatinine Ratio 11.15 L (12.00-20.00) Ratio Glucose 459 H (70-110) mg/dL POC Glucose (mg/dL) (70-110) mg/dL Hemoglobin A1c 8.7 H (<=6.0) % Uric Acid 3.1 L (3.7-8.7) mg/dL Phosphorus (2.4-5.1) mg/dL AST (14-35) U/L Alkaline Phosphatase (41-126) U/L Total Protein 5.5 L (6.2-8.2) g/dL Albumin 3.4 L (3.8-4.9) g/dL 02/17/24 02/17/24 02/17/24 Range/Units 12:02 17:18 20:45 WBC (4.50-10.00) X 10*3/uL RBC (4.40-5.60) X 10*6/uL Hgb (13.0-17.0) g/dL Hct (39.6-50.0) % RDW (11.5-14.5) % Plt Count (140-440) X 10*3/uL Lymphocytes # (Manual) (0.90-5.00) X 10*3/uL Monocytes # (Manual) (0.20-1.00) X 10*3/uL Eosinophils # (Manual) (0.04-0.35) X 10*3/uL NRBC/100 WBC Diff (0.00-0.01) X 10*3/uL Immature Plt Fraction (1.1-6.1) % Microcytosis (manual) Sodium (135-145) mmol/L Chloride (96-109) mmol/L Carbon Dioxide (21.6-31.8) mmol/L Anion Gap (4.00-12.00) mmol/L BUN (9.0-27.0) mg/dL Creatinine (0.6-1.5) mg/dL Est GFR (CKD-EPI) (>=60) BUN/Creatinine Ratio (12.00-20.00) Ratio Glucose (70-110) mg/dL POC Glucose (mg/dL) 358 H 254 H 287 H (70-110) mg/dL Hemoglobin A1c (<=6.0) % Uric Acid (3.7-8.7) mg/dL Phosphorus (2.4-5.1) mg/dL AST (14-35) U/L Alkaline Phosphatase (41-126) U/L Total Protein (6.2-8.2) g/dL Albumin (3.8-4.9) g/dL 08/18/23 08/19/23 08/19/23 Range/Units 22:39 05:44 05:48 WBC 75.48 A* (4.50-10.00) X 10*3/uL RBC 3.08 L (4.40-5.60) X 10*6/uL Hgb 8.6 L (13.0-17.0) g/dL Hct 26.6 L (39.6-50.0) % RDW 15.1 H (11.5-14.5) % Plt Count 51 L (140-440) X 10*3/uL Lymphocytes # (Manual) 12.83 H (0.90-5.00) X 10*3/uL Monocytes # (Manual) 24.91 H (0.20-1.00) X 10*3/uL Eosinophils # (Manual) 0 L (0.04-0.35) X 10*3/uL NRBC/100 WBC Diff 0.81 H (0.00-0.01) X 10*3/uL Immature Plt Fraction 11.2 H (1.1-6.1) % Microcytosis (manual) Sodium 133 L (135-145) mmol/L Chloride 91 L (96-109) mmol/L Carbon Dioxide (21.6-31.8) mmol/L Anion Gap 18.10 H (4.00-12.00) mmol/L BUN 56.8 H (9.0-27.0) mg/dL Creatinine 5.5 H (0.6-1.5) mg/dL Est GFR (CKD-EPI) 11 L (>=60) BUN/Creatinine Ratio 10.33 L (12.00-20.00) Ratio Glucose 370 H (70-110) mg/dL POC Glucose (mg/dL) 276 H (70-110) mg/dL Hemoglobin A1c (<=6.0) % Uric Acid (3.7-8.7) mg/dL Phosphorus 6.0 H (2.4-5.1) mg/dL AST 54 H (14-35) U/L Alkaline Phosphatase 230 H (41-126) U/L Total Protein 6.0 L (6.2-8.2) g/dL Albumin (3.8-4.9) g/dL 08/19/23 Range/Units 07:04 WBC (4.50-10.00) X 10*3/uL RBC (4.40-5.60) X 10*6/uL Hgb (13.0-17.0) g/dL Hct (39.6-50.0) % RDW (11.5-14.5) % Plt Count (140-440) X 10*3/uL Lymphocytes # (Manual) (0.90-5.00) X 10*3/uL Monocytes # (Manual) (0.20-1.00) X 10*3/uL Eosinophils # (Manual) (0.04-0.35) X 10*3/uL NRBC/100 WBC Diff (0.00-0.01) X 10*3/uL Immature Plt Fraction (1.1-6.1) % Microcytosis (manual) Sodium (135-145) mmol/L Chloride (96-109) mmol/L Carbon Dioxide (21.6-31.8) mmol/L Anion Gap (4.00-12.00) mmol/L BUN (9.0-27.0) mg/dL Creatinine (0.6-1.5) mg/dL Est GFR (CKD-EPI) (>=60) BUN/Creatinine Ratio (12.00-20.00) Ratio Glucose (70-110) mg/dL POC Glucose (mg/dL) 363 H (70-110) mg/dL Hemoglobin A1c (<=6.0) % Uric Acid (3.7-8.7) mg/dL Phosphorus (2.4-5.1) mg/dL AST (14-35) U/L Alkaline Phosphatase (41-126) U/L Total Protein (6.2-8.2) g/dL Albumin (3.8-4.9) g/dL Diabetes panel 08/18/23 08/18/23 08/19/23 Range/Units 05:47 05:47 05:44 Sodium 132 L 133 L (135-145) mmol/L Potassium 4.2 4.0 (3.5-5.5) mmol/L Chloride 96 91 L (96-109) mmol/L Carbon Dioxide 21.3 L 23.9 (21.6-31.8) mmol/L BUN 60.2 H 56.8 H (9.0-27.0) mg/dL Creatinine 5.4 H 5.5 H (0.6-1.5) mg/dL Glucose 459 H 370 H (70-110) mg/dL Hemoglobin A1c 8.7 H (<=6.0) % Calcium 8.7 8.8 (8.7-10.3) mg/dL AST 20 54 H (14-35) U/L ALT 14 17 (10-49) U/L Alkaline Phosphatase 104 230 H (41-126) U/L Total Protein 5.5 L 6.0 L (6.2-8.2) g/dL Albumin 3.4 L 3.8 (3.8-4.9) g/dL Calcium panel 08/18/23 08/19/23 Range/Units 05:47 05:44 Calcium 8.7 8.8 (8.7-10.3) mg/dL Phosphorus 4.6 6.0 H (2.4-5.1) mg/dL Albumin 3.4 L 3.8 (3.8-4.9) g/dL Pituitary panel 08/18/23 08/19/23 Range/Units 05:47 05:44 Sodium 132 L 133 L (135-145) mmol/L Potassium 4.2 4.0 (3.5-5.5) mmol/L Chloride 96 91 L (96-109) mmol/L Carbon Dioxide 21.3 L 23.9 (21.6-31.8) mmol/L BUN 60.2 H 56.8 H (9.0-27.0) mg/dL Creatinine 5.4 H 5.5 H (0.6-1.5) mg/dL Glucose 459 H 370 H (70-110) mg/dL Calcium 8.7 8.8 (8.7-10.3) mg/dL Adrenal panel 08/18/23 08/19/23 Range/Units 05:47 05:44 Sodium 132 L 133 L (135-145) mmol/L Potassium 4.2 4.0 (3.5-5.5) mmol/L Chloride 96 91 L (96-109) mmol/L Carbon Dioxide 21.3 L 23.9 (21.6-31.8) mmol/L BUN 60.2 H 56.8 H (9.0-27.0) mg/dL Creatinine 5.4 H 5.5 H (0.6-1.5) mg/dL Glucose 459 H 370 H (70-110) mg/dL Calcium 8.7 8.8 (8.7-10.3) mg/dL Total Bilirubin 0.4 0.5 (0.3-1.2) mg/dL AST 20 54 H (14-35) U/L ALT 14 17 (10-49) U/L Alkaline Phosphatase 104 230 H (41-126) U/L Total Protein 5.5 L 6.0 L (6.2-8.2) g/dL Albumin 3.4 L 3.8 (3.8-4.9) g/dL - Imaging CT scan - abdomen: report reviewed, image reviewed CT scan - pelvis: report reviewed, image reviewed Assessment and Plan Assessment: Impression: Widespread aggressive T-cell lymphoma. Acute renal insufficiency on chronic. Possible distal ureteral stone on the left, nonobstructive, asymptomatic Recommendations: I do not believe that the abnormality on the computed tomography scan which is a possible tiny distal ureteral stone is contributing to the renal insufficiency or the lower back discomfort. I reviewed the computed tomography scan in detail see with the radiologist are considering as a distal ureteral nonobstructing stone. At This juncture I do not think any urologic intervention is required. If this patient's symptoms worsened on the left side been weaned have to consider intervention. My understanding he is being transferred to [facility] which I believe is appropriate and if any urologic issues arise due to the possible ureteral stone the urology service can handle it there.
--- NOTE | 2023-08-19 11:56 | P.PN ---
Subjective Progress Note Date: 08/19/23 Chief Complaint: Sepsis leukocytosis, thrombocytopenia, newly diagnosed left aggressive lymp 62-year-old gentleman went off my office patient was known for the last 10 years with past medical history of type 2 diabetes, chronic kidney disease, atherosclerotic heart disease, hypertension, hyperlipidemia, severe obstructive sleep apnea, recurrent asthma, severe neuropathy mild obesity who had seen dermatology over 2 weeks ago apparently for reactive dermatitis all over his body looks like small tiny sarcoma or granuloma but has been getting much worse. Ended up having biopsy at Dr. Reyna's office 2 weeks ago and were waiting for the result. Patient was seen in our office for last 10 days with progressive worsening symptoms consistent with severe tiredness fatigue and overall not feeling well surprisingly he started having an acute kidney injury with acute tubular necrosis with worsening kidney function creatinine climbing up from 1.6- 3.6 and short period of time. Had an appointment to see nephrology on Sunday for the last blood test has on last week shows reactive leukocytosis with significant thrombocytopenia and mild anemia repeat CBC today shows his white blood cell 40,000 with platelet count around 40,000 as well. 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 With a high suspicion for sepsis and worsening progressive acute kidney failure and possible of sepsis patient in the coming to the emergency department for was seen and evaluated blood culture was initiated repeat blood test and patient ended up going for CT of the abdomen and pelvis surprisingly shows new right axillary adenopathy measuring 3.6 cm with multiple lymphadenopathy all over also had splenomegaly with hepatomegaly and adrenal adenoma as well also finding consistent with lymph node all over consistent with lymphoma and circumferential bladder wall thickening and might represent chronic cystitis. We decided to admit patient to the hospital at this point specially declining kidney function will be seen oncology probably develop pathway to ask general surgery to do biopsy from the axillary lymph node for fast diagnosis as well to decide further management also gentle hydration. Repeat kidney function patient will be seen nephrology as inpatient as well if worsening symptoms patient might be close to need dialysis as well. 08/15/2023: He was seen today by oncology revealed a finding consistent with lymphoma patient will have axilla lymph node for biopsy done by general surgery tomorrow also oncology are planning to do PET scan prior to any treatment or management as for potential of bone marrow biopsy needs to be determined. Nephrology seen patient agree this is an acute tubular necrosis most likely ischemic from lymphomatosis involvement with significant increase in creatinine which may patient has stage IIIa chronic kidney disease. Agree to continue hydration check UA check renal ultrasound and continue to scan the bladder will add oral bicarbonate and avoid any nephrotoxic agent. Again general surgery seen patient and agree to do right axilla lymph node biopsy tomorrow continue to watch his blood level. 08-16-2023: Is doing well and is scheduled for biopsy with Dr. Ross today, his white blood cell is down to 30,000 platelets are down to 38,000 as well his creatinine is much worse at 3.63 with bun of 42, his acute kidney injury has declined more mostly related to ischemic change from lymphomatosis involvement causing acute tubular necrosis. As for his lymphoma still been still be careful with oncology waiting for the final culture the patient will be going for PET scan possibly in the next few days before deciding the course of treatment. 08/17/2023: Patient was doing very well and upon biopsy yesterday successfully waiting for the final result, will see if oncology have any plan to do while st ill in the hospital or patient can be discharged and continue the rest of his management as an outpatient. 08/18/2023: Awaiting for transfer to [facility] still waiting for insurance approval at this point patient declined a lot more seen his creatinine is up to 5.4 bun 60. White blood cell still 33,000 hemoglobin 9.3 and platelet count 40,000. He has seen oncology and nephrology patient might read urgent dialysis at this point and as for the biopsy results still pending at this point but seems like patient is having an aggressive type of lymphoma might benefit from tertiary center being an [facility]. He is in slight bit increased pain from the surgical site along with his lower back has been using smaller dose of Dilaudid on as-needed basis. Blood sugar still mildly elevated will titrate his NovoLog and long-acting insulin today furthermore. 08/19/2023: Patient still waiting to be transferred to [facility], his kidney function had declined more ended up starting dialysis yesterday. He is in so much lower back pain plan x-ray of the lumbar and thoracic spine if needed an MRI will be done as neck step and titrate his pain meds for better control. Finding of possible obstructive stone in the ureter will consult urology as well. His rash slightly better at this point but much worsening blood work and worsening lymphoma. I spoke with him and called his dad with update that his prognosis remain guarded he will require probably further testing for his lymphoma before starting any chemotherapy and the kidney function is worsening. Review of Systems: CONSTITUTIONAL: Mildly overweight does not look comfortable no major respiratory distress. EYES: No icterus sclerae, no conjunctivitis. EARS, NOSE, MOUTH, THROAT, and FACE: No sore throat, lymphadenopathy, carotid bruits or deformity. RESPIRATORY: Mild shortness of breath no wheezes. CARDIOVASCULAR: No CP, Palpitation, PND, Orthopnea, or angina. GASTROINTESTINAL: Slight abdominal discomfort with ventral hernia no nausea or vomiting slight change in bowel habit as well. GENITOURINARY: Decrease in kidney function with less frequent urination without any hematuria at this point. INTEGUMENT/BREAST: Lymph node enlargement. HEMATOLOGIC/LYMPHATIC: Lymph node enlargement with mild anemia. MUSCULOSKELTAL: Negative for Myalgia or arthralgia. NEURLOGICAL: No LOC, Sz or syncope, blurred vision dizziness or abnormality.. BEHAVIORAL/PSYCH: Negative. ENDOCRINE: Negative. Physical examination: General Appearance: Alert, slightly overweight, does not look comfortable but no respiratory distress. Neck HEENT: Supple with slight lymph node enlargement without any thyroid enlargement. Lungs: Clear to auscultation without crackles slight rhonchi no wheezes. Chest Wall: Chest wall normal expansion with deep inspiration no tenderness and no deformity was found on exam, no costochondral pain or discomfort. Heart: Regular rate and rhythm, S1, S2 normal, no murmur, rub or gallop. Back: Symmetric, no curvature, ROM normal, no CVA tenderness. Abdomen: Positive ventral hernia, slightly enlarged spleen, mildly hepatomegaly with mild discomfort in the mid abdominal region area. Extremities: Extremities normal, atraumatic, no cyanosis or edema. Pulses: 2+ and symmetric. Skin: Small granulated rash all over his body including the face and neck the chest wall area more like reactive dermatitis Neurologic: Alert oriented x3 cranial nerves II through XII intact, no motor deficit, no abnormal balance or gait. Assessment and plan: - newly diagnosis of aggressive lymphoma: Seems like very aggressive type of lymphoma biopsy results still pending at this point patient still seen oncology but in process to be transferred to [facility]. - acute kidney injury with acute tubular necrosis: Mostly from tubular obstruction and ischemia from lymphomatosis involvement, much worsening kidney function was started on hemodialysis yesterday. - severe thrombocytopenia most likely reactive to either sepsis or his lymphoma may be there is any involvement of his lymphoma in the bone marrow especially if this is an aggressive type of lymphoma causing the suppressive bone marrow to have thrombocytopenia. Patient might require platelet transfusion and prepare for his biopsy. - type 2 diabetes: Will titrate his Tresiba higher today at least 10 units and NovoLog will go up to 5 extra units AC meals besides sliding scales. Blood sugar still high and will titrate his Tresiba and NovoLog furthermore today. - chronic neuropathy: Has not been on any medication lately but slightly bit worse. Chronic back pain with worsening symptoms: Titrate his Dilaudid up to 1 mg every 3 hours and x-ray of thoracic and lumbar spine be done to exclude any possibility of metastasis. - chronic asthma has been seen pulmonary regular basis remain on albuterol and budesonide. Possible ureteral stone: Will be seen urology for possible intervention if needed. - severe BPH: Has been on Flomax 0.4 mg daily. - hyperlipidemia will continue simvastatin 40 mg a day. - atherosclerotic heart disease has been seeing cardiology last stress test was from April last year. - hiatal hernia with worsening symptoms of GERD: Remain on omeprazole 20 mg twice a day on regular basis. Discussion: His prognosis is guarded continue hemodialysis and still waiting to transfer patient to tertiary center for further management. Objective - Vital Signs Vital signs: Vital Signs Temp 97.5 F L 08/19/23 02:00 Pulse 101 H 08/19/23 02:00 Resp 20 08/19/23 02:00 BP 152/79 08/19/23 02:00 Pulse Ox 92 L 08/19/23 02:00 FiO2 21 08/17/23 09:03 Intake & Output 08/18/23 08/18/23 08/19/23 06:59 18:59 06:59 Intake Total 1800 100 400 Output Total 334 99 6721 Balance 1579 75 -800 Intake: IV 100 Intake, IV Titration 1800 Amount Dextrose 5% in Water 1, 1800 000 ml @ 150 mls/hr IV . Q7H40M [id number] with Sodium Bicarb (1 Meq/ml) 150 ml Rx#:[id number] Hemodialysis 400 Output: Urine 100 25 Post Void Residual 121 Hemodialysis 1200 Other: Voiding Method Toilet Toilet Toilet Urinal Urinal Urinal # Voids 1 0 - Labs CBC & Chem 7: 08/19/23 05:48 08/19/23 05:44 Labs: Abnormal Lab Results - Last 24 Hours (Table) 08/18/23 08/18/23 08/18/23 Range/Units 05:47 05:47 06:52 WBC 33.85 H (4.50-10.00) X 10*3/uL RBC 3.30 L (4.40-5.60) X 10*6/uL Hgb 9.3 L (13.0-17.0) g/dL Hct 28.5 L (39.6-50.0) % RDW 14.9 H (11.5-14.5) % Plt Count 40 L (140-440) X 10*3/uL Lymphocytes # (Manual) 8.46 H (0.90-5.00) X 10*3/uL Monocytes # (Manual) 3.72 H (0.20-1.00) X 10*3/uL Eosinophils # (Manual) 0 L (0.04-0.35) X 10*3/uL NRBC/100 WBC Diff 0.26 H (0.00-0.01) X 10*3/uL Immature Plt Fraction 8.8 H (1.1-6.1) % Microcytosis (manual) 2+ A Sodium 132 L (135-145) mmol/L Carbon Dioxide 21.3 L (21.6-31.8) mmol/L Anion Gap 14.70 H (4.00-12.00) mmol/L BUN 60.2 H (9.0-27.0) mg/dL Creatinine 5.4 H (0.6-1.5) mg/dL Est GFR (CKD-EPI) 11 L (>=60) BUN/Creatinine Ratio 11.15 L (12.00-20.00) Ratio Glucose 459 H (70-110) mg/dL POC Glucose (mg/dL) 416 H (70-110) mg/dL Uric Acid 3.1 L (3.7-8.7) mg/dL Total Protein 5.5 L (6.2-8.2) g/dL Albumin 3.4 L (3.8-4.9) g/dL 08/18/23 08/18/23 08/18/23 Range/Units 06:54 12:02 17:18 WBC (4.50-10.00) X 10*3/uL RBC (4.40-5.60) X 10*6/uL Hgb (13.0-17.0) g/dL Hct (39.6-50.0) % RDW (11.5-14.5) % Plt Count (140-440) X 10*3/uL Lymphocytes # (Manual) (0.90-5.00) X 10*3/uL Monocytes # (Manual) (0.20-1.00) X 10*3/uL Eosinophils # (Manual) (0.04-0.35) X 10*3/uL NRBC/100 WBC Diff (0.00-0.01) X 10*3/uL Immature Plt Fraction (1.1-6.1) % Microcytosis (manual) Sodium (135-145) mmol/L Carbon Dioxide (21.6-31.8) mmol/L Anion Gap (4.00-12.00) mmol/L BUN (9.0-27.0) mg/dL Creatinine (0.6-1.5) mg/dL Est GFR (CKD-EPI) (>=60) BUN/Creatinine Ratio (12.00-20.00) Ratio Glucose (70-110) mg/dL POC Glucose (mg/dL) 428 H 358 H 254 H (70-110) mg/dL Uric Acid (3.7-8.7) mg/dL Total Protein (6.2-8.2) g/dL Albumin (3.8-4.9) g/dL 08/18/23 08/18/23 Range/Units 20:45 22:39 WBC (4.50-10.00) X 10*3/uL RBC (4.40-5.60) X 10*6/uL Hgb (13.0-17.0) g/dL Hct (39.6-50.0) % RDW (11.5-14.5) % Plt Count (140-440) X 10*3/uL Lymphocytes # (Manual) (0.90-5.00) X 10*3/uL Monocytes # (Manual) (0.20-1.00) X 10*3/uL Eosinophils # (Manual) (0.04-0.35) X 10*3/uL NRBC/100 WBC Diff (0.00-0.01) X 10*3/uL Immature Plt Fraction (1.1-6.1) % Microcytosis (manual) Sodium (135-145) mmol/L Carbon Dioxide (21.6-31.8) mmol/L Anion Gap (4.00-12.00) mmol/L BUN (9.0-27.0) mg/dL Creatinine (0.6-1.5) mg/dL Est GFR (CKD-EPI) (>=60) BUN/Creatinine Ratio (12.00-20.00) Ratio Glucose (70-110) mg/dL POC Glucose (mg/dL) 287 H 276 H (70-110) mg/dL Uric Acid (3.7-8.7) mg/dL Total Protein (6.2-8.2) g/dL Albumin (3.8-4.9) g/dL Microbiology - Last 24 Hours (Table) 08/14/23 18:23 Blood Culture - Preliminary Blood 08/14/23 18:15 Blood Culture - Preliminary Blood
[2023-08-19 12:04] LABS: Glucose,Whole Blood 326 mg/dL (70-110)
--- NOTE | 2023-08-19 12:58 | P.PN ---
Subjective Progress Note Date: 08/19/23 Patient is seen in follow-up for acute kidney injury on chronic kidney disease. Creatinine up to 5.4 08/18. Started HD yesterday and tolerated treatment without any issues. Still awaiting transfer to [facility]. Vital signs are stable. General: No acute distress. HEENT: Head exam is unremarkable. LUNGS: No audible rhonchi or wheezes. HEART: Rate and Rhythm are regular. ABDOMEN: Obese, nontender. EXTREMITITES: No edema. Skin lesions noted. Objective - Vital Signs Vital signs: Vital Signs Temp 97.6 F 08/19/23 07:08 Pulse 108 H 08/19/23 07:08 Resp 20 08/19/23 07:08 BP 159/82 08/19/23 07:08 Pulse Ox 92 L 08/19/23 07:08 FiO2 21 08/17/23 09:03 Intake & Output 08/18/23 08/19/23 08/19/23 18:59 06:59 18:59 Intake Total 100 400 Output Total 25 1200 Balance 75 -800 Intake: IV 100 Hemodialysis 400 Output: Urine 25 Hemodialysis 1200 Other: Voiding Method Toilet Toilet Toilet Urinal Urinal Urinal # Voids 1 0 - Labs CBC & Chem 7: 08/19/23 05:48 08/19/23 05:44 Labs: Abnormal Lab Results - Last 24 Hours (Table) 08/18/23 08/18/23 08/18/23 Range/Units 05:47 17:18 20:45 WBC (4.50-10.00) X 10*3/uL RBC (4.40-5.60) X 10*6/uL Hgb (13.0-17.0) g/dL Hct (39.6-50.0) % RDW (11.5-14.5) % Plt Count (140-440) X 10*3/uL Lymphocytes # (Manual) (0.90-5.00) X 10*3/uL Monocytes # (Manual) (0.20-1.00) X 10*3/uL Eosinophils # (Manual) (0.04-0.35) X 10*3/uL NRBC/100 WBC Diff (0.00-0.01) X 10*3/uL Immature Plt Fraction (1.1-6.1) % Sodium (135-145) mmol/L Chloride (96-109) mmol/L Anion Gap (4.00-12.00) mmol/L BUN (9.0-27.0) mg/dL Creatinine (0.6-1.5) mg/dL Est GFR (CKD-EPI) (>=60) BUN/Creatinine Ratio (12.00-20.00) Ratio Glucose (70-110) mg/dL POC Glucose (mg/dL) 254 H 287 H (70-110) mg/dL Hemoglobin A1c 8.7 H (<=6.0) % Phosphorus (2.4-5.1) mg/dL AST (14-35) U/L Alkaline Phosphatase (41-126) U/L Total Protein (6.2-8.2) g/dL 08/18/23 08/19/23 08/19/23 Range/Units 22:39 05:44 05:48 WBC 75.48 A* (4.50-10.00) X 10*3/uL RBC 3.08 L (4.40-5.60) X 10*6/uL Hgb 8.6 L (13.0-17.0) g/dL Hct 26.6 L (39.6-50.0) % RDW 15.1 H (11.5-14.5) % Plt Count 51 L (140-440) X 10*3/uL Lymphocytes # (Manual) 12.83 H (0.90-5.00) X 10*3/uL Monocytes # (Manual) 24.91 H (0.20-1.00) X 10*3/uL Eosinophils # (Manual) 0 L (0.04-0.35) X 10*3/uL NRBC/100 WBC Diff 0.81 H (0.00-0.01) X 10*3/uL Immature Plt Fraction 11.2 H (1.1-6.1) % Sodium 133 L (135-145) mmol/L Chloride 91 L (96-109) mmol/L Anion Gap 18.10 H (4.00-12.00) mmol/L BUN 56.8 H (9.0-27.0) mg/dL Creatinine 5.5 H (0.6-1.5) mg/dL Est GFR (CKD-EPI) 11 L (>=60) BUN/Creatinine Ratio 10.33 L (12.00-20.00) Ratio Glucose 370 H (70-110) mg/dL POC Glucose (mg/dL) 276 H (70-110) mg/dL Hemoglobin A1c (<=6.0) % Phosphorus 6.0 H (2.4-5.1) mg/dL AST 54 H (14-35) U/L Alkaline Phosphatase 230 H (41-126) U/L Total Protein 6.0 L (6.2-8.2) g/dL 08/19/23 08/19/23 Range/Units 07:04 12:03 WBC (4.50-10.00) X 10*3/uL RBC (4.40-5.60) X 10*6/uL Hgb (13.0-17.0) g/dL Hct (39.6-50.0) % RDW (11.5-14.5) % Plt Count (140-440) X 10*3/uL Lymphocytes # (Manual) (0.90-5.00) X 10*3/uL Monocytes # (Manual) (0.20-1.00) X 10*3/uL Eosinophils # (Manual) (0.04-0.35) X 10*3/uL NRBC/100 WBC Diff (0.00-0.01) X 10*3/uL Immature Plt Fraction (1.1-6.1) % Sodium (135-145) mmol/L Chloride (96-109) mmol/L Anion Gap (4.00-12.00) mmol/L BUN (9.0-27.0) mg/dL Creatinine (0.6-1.5) mg/dL Est GFR (CKD-EPI) (>=60) BUN/Creatinine Ratio (12.00-20.00) Ratio Glucose (70-110) mg/dL POC Glucose (mg/dL) 363 H 326 H (70-110) mg/dL Hemoglobin A1c (<=6.0) % Phosphorus (2.4-5.1) mg/dL AST (14-35) U/L Alkaline Phosphatase (41-126) U/L Total Protein (6.2-8.2) g/dL Assessment and Plan Plan: Assessment: 1. Acute kidney injury secondary to ATN secondary to spontaneous tumor lysis syndrome requiring hemodialysis. Concern for tubular obstruction and ischemia from lymphomatous involvement. Creatinine up to 5.4 08/18 and started on HD. Kidney ultrasound from August 08, 2023 showed normal-sized kidneys without evidence of hydronephrosis. UA positive for protein and hematuria. 2. Chronic kidney disease stage IIIa with baseline creatinine 1.3-1.4 in April 2023. Suspect underlying diabetic kidney disease. 3. Recently diagnosed malignancy. Lymphoma versus melanoma versus other. Oncology following. Axillary node biopsy results pending. 4. Hypokalemia from poor intake. Replaced. Better. 5. Metabolic acidosis secondary to acute kidney injury on IV fluids. 6. Diabetes mellitus. 7. Benign hypertension. Exacerbated by steroids. 8. Hypomagnesemia from poor intake. Replaced. Better. 9. Thrombocytopenia. Received platelet transfusions this admission. Hematology following. 10. 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 Status post rasburicase. Plan: Tolerated first HD treatment yesterday, next treatment will be tomorrow. Remains anuric Follow-up serologies. Negative so far. Continue to monitor for renal recovery. Plan for transfer to [facility] possibly tomorrow if receives authorization.
[2023-08-19 13:42] LABS: INR 1.7 (<1.2); Partial Thromboplastin Time 26.2 sec (22.0-30.0)
--- NOTE | 2023-08-19 16:53 | P.PN ---
Subjective Progress Note Date: 08/19/23 Principal diagnosis: lymphoma, TLS In f/u today, pt c/o of feeling achy. Denies n/v/d, headache, and visual disturbances. Denies any episodes of acute bleeding. HD started yesterday. Creatinine 5.5, GFR 11. Tumor lysis labs negative today. WBC increased today to 75.4. Hgb 8.6, plt 51,000. DIC workup today, showing increased PT/INR, and fibrinogen 93. 1 dose cryoprecipitate ordered. Awaiting transfer to [facility] Objective - Vital Signs Vital signs: Vital Signs Temp 97.6 F 08/19/23 07:08 Pulse 108 H 08/19/23 07:08 Resp 20 08/19/23 07:08 BP 159/82 08/19/23 07:08 Pulse Ox 92 L 08/19/23 07:08 FiO2 21 08/17/23 09:03 Intake & Output 08/18/23 08/19/23 08/19/23 18:59 06:59 18:59 Intake Total 100 400 Output Total 25 1200 Balance 75 -800 Intake: IV 100 Hemodialysis 400 Output: Urine 25 Hemodialysis 1200 Other: Voiding Method Toilet Toilet Toilet Urinal Urinal Urinal # Voids 1 0 - Constitutional General appearance: Present: no acute distress - EENT Eyes: Present: anicteric sclerae, EOMI ENT: Present: hearing grossly normal - Respiratory Details: breathing is even and unlabored - Cardiovascular Details: skin warm and dry - Gastrointestinal General gastrointestinal: Present: soft. Absent: tenderness - Integumentary Integumentary Comment(s): no petechiae noted Integumentary: Absent: cyanotic - Neurologic Neurologic Comment(s): no focal deficits - Musculoskeletal Musculoskeletal: Present: strength equal bilaterally - Psychiatric Psychiatric: Present: A&O x's 3 - Labs CBC & Chem 7: 08/19/23 05:48 08/19/23 05:44 Labs: Abnormal Lab Results - Last 24 Hours (Table) 08/18/23 08/18/23 08/18/23 Range/Units 05:47 05:47 12:02 WBC 33.85 H (4.50-10.00) X 10*3/uL RBC 3.30 L (4.40-5.60) X 10*6/uL Hgb 9.3 L (13.0-17.0) g/dL Hct 28.5 L (39.6-50.0) % RDW 14.9 H (11.5-14.5) % Plt Count 40 L (140-440) X 10*3/uL Lymphocytes # (Manual) 8.46 H (0.90-5.00) X 10*3/uL Monocytes # (Manual) 3.72 H (0.20-1.00) X 10*3/uL Eosinophils # (Manual) 0 L (0.04-0.35) X 10*3/uL NRBC/100 WBC Diff 0.26 H (0.00-0.01) X 10*3/uL Immature Plt Fraction 8.8 H (1.1-6.1) % Microcytosis (manual) 2+ A Sodium (135-145) mmol/L Chloride (96-109) mmol/L Anion Gap (4.00-12.00) mmol/L BUN (9.0-27.0) mg/dL Creatinine (0.6-1.5) mg/dL Est GFR (CKD-EPI) (>=60) BUN/Creatinine Ratio (12.00-20.00) Ratio Glucose (70-110) mg/dL POC Glucose (mg/dL) 358 H (70-110) mg/dL Hemoglobin A1c 8.7 H (<=6.0) % Phosphorus (2.4-5.1) mg/dL AST (14-35) U/L Alkaline Phosphatase (41-126) U/L Total Protein (6.2-8.2) g/dL 08/18/23 08/18/23 08/18/23 Range/Units 17:18 20:45 22:39 WBC (4.50-10.00) X 10*3/uL RBC (4.40-5.60) X 10*6/uL Hgb (13.0-17.0) g/dL Hct (39.6-50.0) % RDW (11.5-14.5) % Plt Count (140-440) X 10*3/uL Lymphocytes # (Manual) (0.90-5.00) X 10*3/uL Monocytes # (Manual) (0.20-1.00) X 10*3/uL Eosinophils # (Manual) (0.04-0.35) X 10*3/uL NRBC/100 WBC Diff (0.00-0.01) X 10*3/uL Immature Plt Fraction (1.1-6.1) % Microcytosis (manual) Sodium (135-145) mmol/L Chloride (96-109) mmol/L Anion Gap (4.00-12.00) mmol/L BUN (9.0-27.0) mg/dL Creatinine (0.6-1.5) mg/dL Est GFR (CKD-EPI) (>=60) BUN/Creatinine Ratio (12.00-20.00) Ratio Glucose (70-110) mg/dL POC Glucose (mg/dL) 254 H 287 H 276 H (70-110) mg/dL Hemoglobin A1c (<=6.0) % Phosphorus (2.4-5.1) mg/dL AST (14-35) U/L Alkaline Phosphatase (41-126) U/L Total Protein (6.2-8.2) g/dL 08/19/23 08/19/23 08/19/23 Range/Units 05:44 05:48 07:04 WBC 75.48 A* (4.50-10.00) X 10*3/uL RBC 3.08 L (4.40-5.60) X 10*6/uL Hgb 8.6 L (13.0-17.0) g/dL Hct 26.6 L (39.6-50.0) % RDW 15.1 H (11.5-14.5) % Plt Count 51 L (140-440) X 10*3/uL Lymphocytes # (Manual) 12.83 H (0.90-5.00) X 10*3/uL Monocytes # (Manual) 24.91 H (0.20-1.00) X 10*3/uL Eosinophils # (Manual) 0 L (0.04-0.35) X 10*3/uL NRBC/100 WBC Diff 0.81 H (0.00-0.01) X 10*3/uL Immature Plt Fraction 11.2 H (1.1-6.1) % Microcytosis (manual) Sodium 133 L (135-145) mmol/L Chloride 91 L (96-109) mmol/L Anion Gap 18.10 H (4.00-12.00) mmol/L BUN 56.8 H (9.0-27.0) mg/dL Creatinine 5.5 H (0.6-1.5) mg/dL Est GFR (CKD-EPI) 11 L (>=60) BUN/Creatinine Ratio 10.33 L (12.00-20.00) Ratio Glucose 370 H (70-110) mg/dL POC Glucose (mg/dL) 363 H (70-110) mg/dL Hemoglobin A1c (<=6.0) % Phosphorus 6.0 H (2.4-5.1) mg/dL AST 54 H (14-35) U/L Alkaline Phosphatase 230 H (41-126) U/L Total Protein 6.0 L (6.2-8.2) g/dL - Imaging and Cardiology Lumbar and thoracic x-ray reviewed Assessment and Plan (1) Tumor lysis syndrome Current Visit: Yes Status: Acute Priority: High Code(s): E88.3 - TUMOR LYSIS SYNDROME SNOMED Code(s): 572835406 (2) Acute kidney injury Current Visit: Yes Status: Acute Priority: High Code(s): N17.9 - ACUTE KIDNEY FAILURE, UNSPECIFIED SNOMED Code(s): 68858791 (3) Leukocytosis Current Visit: Yes Status: Acute Priority: High Code(s): D72.829 - ELEVATED WHITE BLOOD CELL COUNT, UNSPECIFIED SNOMED Code(s): 910275453 (4) Lymphoma Current Visit: Yes Status: Acute Priority: High Code(s): C85.90 - NON- HODGKIN LYMPHOMA, UNSPECIFIED, UNSPECIFIED SITE SNOMED Code(s): 641741364 (5) Thrombocytopenia Current Visit: Yes Status: Acute Priority: High Code(s): D69.6 - THROMBOCYTOPENIA, UNSPECIFIED SNOMED Code(s): 950076746 (6) DIC (disseminated intravascular coagulation) Current Visit: Yes Status: Acute Priority: High Code(s): D65 - DISSEMINATED INTRAVASCULAR COAGULATION SNOMED Code(s): 98314555 Plan: 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 Over the last 3 weeks have multiplied exponentially and now cover his whole body, more dense on the head, neck, upper back and chest, scant on the extremities -Pathology report obtained. Collected 07/25/2023. Neoplasm of uncertain behavior versus melanoma versus granuloma versus lymphoblastic T-cell lymphoma are the differentials. Lesion is positive for CD5 and CD56 immunostains. Additional studies will need to be performed to confirm the diagnosis. -S/p repeat skin biopsy, biopsy and flow cytometry requested. Results pending -STAT tumor lysis labs, rule out spontaneous TLS due to worsening kidney function, revealing TLS -100mg allopurinol and 1 dose Elitek ordered -Optimally, patients with lymphoma should have staging PET scan prior to beginning treatment but, urgency of treatment is going to have to be considered -Spoke with Dr. Albino Brannon at [facility] regarding case, and he is recommending transfer for higher level of care and pt will need likely need to start inpt treatment due to aggressive nature of lymphoma. Spoke with IM team to update on POC. Transfer has been accepted. However due to pending inpt authorization at [facility], can not transfer patient until this is completed. Spoke with case management, and inpt auth will not be able to be obtained till Sunday. Will f/u with case management team -Pulse dose dex started -Echocardiogram and Picc line ordered for anticipation of treatment. Echocardiogram shows normal LV function, EF 55-60%. Picc line hopefully will be scheduled for Sunday, can obtain at transferring facility if needed TLS/ALLEN: -Elevated uric acid and phosphorus levels with worsening kidney function. 1 dose of Elitek ordered. -Allopurinol 100 mg daily because of renal function. -Repeat TLS labs daily. Tumor lysis labs negative today. If uric acid greater than 8 will order additional dose of Elitek -Unfortunately kidney function has continued to decline. Dialysis catheter placed, and underwent HD yesterday. Today, Creatinine 5.5, GFR 11 -X-ray Thoracic/Lumbar spine revealed 3mm calculus at left ureterovesicular junction. Urology consulted, do not believe stone is obstructing, no plan for intervention at this time. -Nephrology following DIC: -DIC workup previously negative. Labs repeated today revealing increased PT/INR and fibrinogen 93. No reported episodes of acute bleeding -1 dose cryoprecipitate ordered -Recheck DIC labs at 2100, 0500
[2023-08-19 17:15] LABS: Glucose,Whole Blood 294 mg/dL (70-110)
--- NOTE | 2023-08-19 17:38 | XR ---
EXAMINATION TYPE: XR chest 2V DATE OF EXAM: 08/19/2023 5:00 PM CLINICAL INDICATION:Male, 62 years old with history of chest pain; [facility] COMPARISON: Chest radiographs from 08/18/2023. TECHNIQUE: XR chest 2V Frontal and lateral views of the chest. FINDINGS: Lungs/Pleura: There is no evidence of pleural effusion, focal consolidation, or pneumothorax. Pulmonary vascularity: Unremarkable. Heart/mediastinum: Cardiomediastinal silhouette is unremarkable. Musculoskeletal: No acute osseous pathology. Right chest wall [id number] with tip at the superior cavoatrial junction. IMPRESSION: No acute cardiopulmonary disease/process.
[2023-08-19 17:44] LABS: HCT 27.9 % (39.0-53.0); Hypochromasia Marked; MCH 29.7 pg (25.0-35.0); MCHC 32.4 g/dL (31.0-37.0); MCV 91.6 fL (80.0-100.0); Mean Platelet Volume 10.9; Platelet Count 52 k/uL (150-450); RBC 3.04 m/uL (4.30-5.90); RDW 15.4 % (11.5-15.5)
[2023-08-19 17:52] LABS: ALT 34 U/L (4-49); AST 112 U/L (17-59); African American GFR (CKD) 11 (>60 ml/min/1.73 sqM); Albumin 3.9 g/dL (3.5-5.0); Albumin/Globulin Ratio 1.7; Anion Gap 18 mmol/L; Blood Urea Nitrogen 72 mg/dL (9-20); Calcium 8.6 mg/dL (8.4-10.2); Carbon Dioxide 23 mmol/L (22-30); Chloride 92 mmol/L (98-107); Globulin 2.3 g/dL; Glucose 282 mg/dL (74-99); Non-African American GFR(CKD) 9 (>60 ml/min/1.73 sqM); Potassium 4.1 mmol/L (3.5-5.1); Sodium 133 mmol/L (137-145); Total Bilirubin 0.8 mg/dL (0.2-1.3); Total Protein 6.2 g/dL (6.3-8.2)
[2023-08-19 18:00] LABS: NT-Pro-B-Type Natriuretic Pept 4270 pg/mL
[2023-08-19 18:04] LABS: Band Neutrophils % 2 %; Metamyelocytes # (M) 0.75 k/uL (0); Metamyelocytes % 1 %; Myelocytes % 2 %; Neutrophils % (M) 25 %
[2023-08-19 18:05] LABS: Nucleated Red Blood Cells 1 /100 WBC (0-0); Total Cells Counted 200
[2023-08-19 18:06] LABS: Blast Cells # (M) 14.94 k/uL (0); WBC 74.7 k/uL (3.8-10.6)
[2023-08-19 18:07] LABS: Monocytes # (M) 9.71 k/uL (0-1.0); Myelocytes # (M) 1.49 k/uL (0)
[2023-08-19 18:34] LABS: Alkaline Phosphatase 731 U/L (38-126)
[2023-08-19 20:10] LABS: Glucose,Whole Blood 280 mg/dL (70-110)
[2023-08-19 22:30] LABS: INR 1.5 (<1.2); Partial Thromboplastin Time 26.2 sec (22.0-30.0); Prothrombin Time 15.7 sec (10.0-12.5)
[2023-08-20 07:07] LABS: Glucose,Whole Blood 408 mg/dL (70-110)
[2023-08-20] MEDS: INSULIN ASPART (NovoLOG) 100 UNIT/ML VIAL SQ SCH (07:30)
[2023-08-20 08:21] LABS: INR 1.5 (<1.2); Partial Thromboplastin Time 27.6 sec (22.0-30.0); Prothrombin Time 15.7 sec (10.0-12.5)
--- NOTE | 2023-08-20 10:01 | P.CRDCN ---
History of Present Illness Consult date: 08/20/23 Reason for Consult (text): ELEVATED TROPONIN History of present illness: History of present illness: This is a 62-year-old male patient of Dr. SIERRA Oakes with past medical history of diabetes mellitus type 2, hypertension, hyperlipidemia, obesity, noncritical CAD. We have been asked to evaluate the patient for elevated troponin. Patient presented to the hospital on 08/14 for abnormal lab work and new diagnosis of lymphoma. Patient has been treated for November diagnosis of aggressive lymphoma biopsy results are pending, acute kidney injury, severe thrombocytopenia, uncontrolled diabetes. Plan is for patient to be transferred to [facility]. Patient currently states he is short of breath he states he has a little chest pain that is worse with deep breathing. He states he has a hacking cough and his breathing got worse this morning. No nausea or vomiting. He states he has not been well for 5 days prior to admission. He denies smoking. EKG sinus rhythm at 102 bpm Chest x-ray: Performed 08/19 reveals no acute process. WBC 74.7, hemoglobin 9, platelet count 52. INR 1.5, fibrinogen 110, D-dimer 13.8. Sodium 133, potassium 4.1, BUN 72 creatinine 5.89. Blood sugar 282. AST 112, ALT 34, alkaline phosphatase 731. Troponin 0.348 and 0.329. proBNP 4270. Albumin 3.9. Triglycerides 373, cholesterol 93, LDL 19, HDL 19. Urinalysis positive for moderate blood. Echocardiogram performed on 08/17/2023 revealed normal LV systolic function. Mildly dilated right ventricle. Home cardiac medications: Lopressor 50 mg twice daily, simvastatin 40 mg at bedtime, also on Mounjaro 7.5 mg weekly. Cardiac catheterization performed and 2010 revealed moderate CAD. Proximal and mid RCA and mid circumflex. Diffuse disease in distal one third of the LAD. Noncritical. Maximum lesion is no more than 40 to 45% involving the circumflex marginal. LV systolic function normal. Review Of Systems: At the time of my exam: CONSTITUTIONAL: Denies fever or chills. + Generalized fatigue. HEENT: Denies blurred vision, vision changes, or eye pain. Denies hemoptysis CARDIOVASCULAR: + chest pain. Denies orthopnea. Denies PND. Denies palpitations RESPIRATORY: + shortness of breath. + Cough. GASTROINTESTINAL: Denies abdominal pain. Denies nausea or vomiting. HEMATOLOGIC: Denies bleeding disorders. GENITOURINARY: Denies any blood in urine. SKIN: Denies pruitis. Denies rash. Physical examination: Gen: This is a very ill-appearing 62-year-old male, uncomfortable and agitated. VS: reviewed HEENT: Head is atraumatic, normocephalic. Pupils equal, round. Sclerae is anicteric. NECK: Supple. No JVD. LUNGS: Clear to auscultation. No wheezes or rhonchi. No intercostal retractions. HEART: Regular rate and rhythm. No murmur. ABDOMEN: Soft No tenderness. EXTREMITIES: No pedal edema. No calf tenderness. NEUROLOGICAL: Patient is awake, alert. Assessment: Elevated troponin due to type II PA due to lymphoma worsened by acute kidney injury New diagnosis of lymphoma Thrombocytopenia Acute kidney injury Diabetes mellitus type 2 Hypertension Hyperlipidemia Obesity Noncritical coronary artery disease Plan: Resume patient's home cardiac medications No plan for antiplatelets due to thrombocytopenia Patient is not candidate for intervention at this time due to thrombocytopenia and multiple comorbidities Agree with plan to transfer patient to [facility]. Further recommendations to follow based upon clinical course Nurse practitioner note has been reviewed, I agree with documented findings and plan of care. Patient was seen and examined. Past Medical History Past Medical History: Asthma, Chest Pain / Angina, Diabetes Mellitus, Hyperlipidemia, Hypertension, Renal Disease, Sleep Apnea/CPAP/BIPAP Additional Past Medical History / Comment(s): uses CPAP, decreased kidney function, umbilical hernia currently, recent adm. for chest pain, no problems found per pt. History of Any Multi-Drug Resistant Organisms: None Reported Past Surgical History: Heart Catheterization, Hernia Repair, Orthopedic Surgery Additional Past Surgical History / Comment(s): left shoulder surg., mult. right ankle surgeries Past Anesthesia/Blood Transfusion Reactions: No Reported Reaction Past Psychological History: No Psychological Hx Reported Smoking Status: Former smoker Medications and Allergies Home Medications Medication Instructions Recorded Confirmed Type Metoprolol Tartrate [Lopressor] 50 mg PO BID 11/29/16 08/14/23 History Pioglitazone [Actos] 30 mg PO DAILY 11/29/16 08/14/23 History Simvastatin 40 mg PO HS 11/29/16 08/14/23 History Albuterol Inhaler [Ventolin Hfa 2 puff INHALATION RT-Q6H PRN 04/12/23 08/14/23 History Inhaler] Insulin Degludec [Tresiba 50 units SQ HS 04/12/23 08/14/23 History Flextouch U-200 Pen] Montelukast [Singulair] 10 mg PO DAILY 04/12/23 08/14/23 History Omeprazole 20 mg PO BID 04/12/23 08/14/23 History Budesonide/Glycopyr/Formoterol 2 puff INHALATION RT-DAILY 08/14/23 08/14/23 History [Breztri Aerosphere Inhaler] Tamsulosin [Flomax] 0.4 mg PO DAILY 08/14/23 08/14/23 History Tirzepatide [Mounjaro] 7.5 mg SQ MO 08/14/23 08/14/23 History Allergies Allergy/AdvReac Type Severity Reaction Status Date / Time shellfish derived [Shellfish] Allergy Mild Itching Verified 08/14/23 19:33 Penicillins Allergy Anaphylaxis Verified 08/14/23 19:33 Physical Exam Vitals: Vital Signs Temp Pulse Pulse Resp BP Pulse Ox 08/20/23 08:00 97.7 F 107 H 19 149/86 92 L 08/20/23 01:15 97.6 F 92 20 145/69 91 L 08/19/23 23:20 97 24 151/76 95 08/19/23 20:00 97.9 F 91 20 153/81 91 L 08/19/23 18:34 98.0 F 107 H 18 153/79 91 L 08/19/23 18:00 97.7 F 105 H 18 92 L 08/19/23 16:08 96 08/19/23 16:00 100 20 149/83 91 L 08/19/23 15:58 88 L 08/19/23 12:38 97.5 F L 101 H 20 179/76 92 L Intake and Output 08/19/23 08/20/23 08/20/23 22:59 06:59 14:59 Intake Total 842 Balance 842 Intake: Oral 760 Blood Product 82 Pooled Cryoprecipitate 82 Unit [id number] Other: Voiding Method Toilet Urinal # Voids 1 Results 08/19/23 17:17 08/19/23 17:17 Cardiac Enzymes 08/19/23 08/19/23 08/19/23 Range/Units 05:44 17:17 17:17 AST 54 H 112 H (14-35) U/L Troponin I 0.348 H* (0.000-0.034) ng/mL Coagulation 08/19/23 08/19/23 08/20/23 Range/Units 12:31 21:51 07:31 PT 17.0 H 15.7 H 15.7 H (10.0-12.5) sec APTT 26.2 26.2 27.6 (22.0-30.0) sec CBC 08/19/23 08/19/23 Range/Units 05:48 17:17 WBC 75.48 A* 74.7 H* (4.50-10.00) X 10*3/uL RBC 3.08 L 3.04 L (4.40-5.60) X 10*6/uL Hgb 8.6 L 9.0 L D (13.0-17.0) g/dL Hct 26.6 L 27.9 L (39.6-50.0) % Plt Count 51 L 52 L (140-440) X 10*3/uL Comprehensive Metabolic Panel 08/19/23 08/19/23 Range/Units 05:44 17:17 Sodium 133 L 133 L (135-145) mmol/L Potassium 4.0 4.1 (3.5-5.5) mmol/L Chloride 91 L 92 L (96-109) mmol/L Carbon Dioxide 23.9 23 (21.6-31.8) mmol/L BUN 56.8 H 72 H (9.0-27.0) mg/dL Creatinine 5.5 H 5.89 H (0.6-1.5) mg/dL Glucose 370 H 282 H (70-110) mg/dL Calcium 8.8 8.6 (8.7-10.3) mg/dL AST 54 H 112 H (14-35) U/L ALT 17 34 (10-49) U/L Alkaline Phosphatase 230 H 731 H (41-126) U/L Total Protein 6.0 L 6.2 L (6.2-8.2) g/dL Albumin 3.8 3.9 (3.8-4.9) g/dL Current Medications Generic Name Dose Route Start Last Admin Trade Name Freq PRN Reason Stop Dose Admin Albuterol/Ipratropium 3 ml 08/15/23 07:49 08/19/23 16:08 Ipratropium-Albuterol 3 Ml Neb INHALATION 3 ml RT-QID PRN Administration Shortness Of Breath Or Wheezing Allopurinol 100 mg 08/17/23 09:00 08/19/23 08:14 Allopurinol 100 Mg Tab PO 100 mg DAILY NGUYỄN Administration Amlodipine Besylate 5 mg 08/16/23 11:34 08/19/23 21:09 Amlodipine 5 Mg Tab PO 5 mg BID NGUYỄN Administration Atorvastatin Calcium 20 mg 08/15/23 21:00 08/19/23 21:09 Atorvastatin 20 Mg Tab PO 20 mg HS NGUYỄN Administration Budesonide/Formoterol Fumarate 2 puff 08/15/23 08:00 08/19/23 19:52 Symbicort 160-4.5 Mcg Inhaler INHALATION 2 puff RT-BID NGUYỄN Administration Dexamethasone 40 mg 08/17/23 11:30 08/19/23 08:13 Dexamethasone 4 Mg Tab PO 08/20/23 09:01 40 mg DAILY NGUYỄN Administration Dextrose/Water 25 ml 08/18/23 07:44 Dextrose 50% Syringe 50 Ml IVP PER PROTOCOL PRN Hypoglycemia Protocol Dextrose/Water 50 ml 08/18/23 07:44 Dextrose 50% Syringe 50 Ml IVP PER PROTOCOL PRN Hypoglycemia Protocol Hydralazine HCl 100 mg 08/17/23 16:00 08/19/23 23:32 Hydralazine Hcl 50 Mg Tab PO 100 mg TID NGUYỄN Administration Hydromorphone HCl 1 mg 08/18/23 17:51 08/20/23 01:21 Hydromorphone 1 Mg/Ml 1 Ml Syringe IVP 1 mg Q3HR PRN Administration Pain Hydromorphone HCl 2 mg 08/19/23 09:31 08/19/23 14:37 Hydromorphone 2 Mg Tab PO 2 mg Q3HR PRN Administration Pain Scale 9 To 10 Levofloxacin/Dextrose 250 mg/ 50 mls @ 50 mls/hr 08/17/23 09:00 08/19/23 08:19 IV Solution IVPB 50 mls/hr Q24HR NGUYỄN Administration Sodium Bicarbonate 150 ml/ 1,150 mls @ 150 mls/hr 08/17/23 12:45 08/20/23 01:31 Dextrose/Water IV 150 mls/hr .[id number] NGUYỄN Administration Insulin Aspart 0 unit 08/18/23 07:50 08/19/23 21:14 Insulin Aspart (Novolog) 100 Unit/Ml Vial SQ 6 unit ACHS NGUYỄN Administration Protocol Insulin Aspart 18 unit 08/20/23 07:30 Insulin Aspart (Novolog) 100 Unit/Ml Vial SQ AC-TID [facility] Insulin Detemir 70 unit 08/20/23 21:00 Insulin Detemir (Levemir) 100 Unit/Ml Syr SQ HS [facility] Metoprolol Tartrate 50 mg 08/15/23 09:00 08/19/23 21:09 Metoprolol Tartrate 50 Mg Tab PO 50 mg BID NGUYỄN Administration Miscellaneous Information 1 each 08/15/23 10:52 Potassium Replacement Protocol 1 Each Misc MISCELLANE DAILY PRN Per Protocol Protocol Miscellaneous Information 1 each 08/15/23 21:40 Potassium Replacement Protocol 1 Each Misc MISCELLANE DAILY PRN Per Protocol Protocol Montelukast Sodium 10 mg 08/15/23 09:00 08/19/23 08:13 Montelukast 10 Mg Tab PO 10 mg DAILY NGUYỄN Administration Nitroglycerin 0.4 mg 08/14/23 20:08 Nitroglycerin Sl Tabs 0.4 Mg Tab SUBLINGUAL Q5M PRN Chest Pain Pantoprazole Sodium 40 mg 08/15/23 09:00 08/19/23 08:14 Pantoprazole 40 Mg Tablet PO 40 mg DAILY NGUYỄN Administration Pioglitazone HCl 30 mg 08/15/23 09:00 08/19/23 08:57 Pioglitazone 30 Mg Tab PO 30 mg DAILY NGUYỄN Administration Sodium Bicarbonate 650 mg 08/15/23 11:30 08/19/23 21:09 Sodium Bicarbonate Tab 650 Mg Tab PO 650 mg TID [facility] Administration Tamsulosin HCl 0.4 mg 08/15/23 09:00 08/19/23 08:14 Tamsulosin 0.4 Mg Cap.Er.24h PO 0.4 mg DAILY NGUYỄN Administration Intake and Output 08/19/23 08/20/23 08/20/23 22:59 06:59 14:59 Intake Total 842 Balance 842 Intake: Oral 760 Blood Product 82 Pooled Cryoprecipitate 82 Unit [id number] Other: Voiding Method Toilet Urinal # Voids 1 08/19/23 17:17 08/19/23 17:17
[2023-08-20 12:11] LABS: Basophils # (M) 0 X 10*3/uL (0.00-0.10); Eosinophils # (M) 0 X 10*3/uL (0.04-0.35); HCT 22.5 % (39.6-50.0); HGB 7.2 g/dL (13.0-17.0); Lymphocytes # (M) 22.41 X 10*3/uL (0.90-5.00); MCH 28.1 pg (27.0-32.0); MCV 87.9 FL (80.0-97.0); Metamyelocytes % 2 % (0-0); Myelocytes % 2 % (0-0); NRBC Per 100 WBC 0.58 X 10*3/uL (0.00-0.01); Neutrophils # (M) 34.41 X 10*3/uL (1.80-7.70); Neutrophils % (M) 43 %; Platelet Count 32 X 10*3/uL (140-440); RBC 2.56 X 10*6/uL (4.40-5.60); RDW 15.2 % (11.5-14.5); WBC 80.03 X 10*3/uL (4.50-10.00)
[2023-08-20 12:39] LABS: ALT 43 U/L (10-49); AST 358 U/L (14-35); Albumin 3.7 g/dL (3.8-4.9); Albumin/Globulin Ratio 1.85 Ratio (1.60-3.17); Alkaline Phosphatase 2438 U/L (41-126); Blood Urea Nitrogen 77.7 mg/dL (9.0-27.0); Calcium 8.4 mg/dL (8.7-10.3); Carbon Dioxide 22.2 mmol/L (21.6-31.8); Chloride 82 mmol/L (96-109); Glucose 371 mg/dL (70-110); Phosphorus 9.7 mg/dL (2.4-5.1); Potassium 4.5 mmol/L (3.5-5.5); Sodium 131 mmol/L (135-145); Total Protein 5.7 g/dL (6.2-8.2); Uric Acid 6.2 mg/dL (3.7-8.7)
[2023-08-20 12:39] LABS: Glucose,Whole Blood 261 mg/dL (70-110)
[2023-08-20 12:45] VITALS: BMI 36.9
[2023-08-20] MEDS: ALPRAZolam 0.25 MG TAB PO PRN (12:58)
[2023-08-20] MEDS: LIDOCAINE 1% INJ 10MG/ML (20 ML MDV) SQ ONE (13:23)
--- NOTE | 2023-08-20 13:34 | P.PCN ---
Date of Procedure: 08/20/23 Preoperative Diagnosis: Lymphoma Postoperative Diagnosis: same Procedure(s) Performed: Left basilic PICC placement under ultrasound and fluoroscopic guidance Anesthesia: local Surgeon: Cj Claire Pathology: none sent Disposition: floor Description of Procedure: After written and informed consent was obtained the patient and all risks, benefits and complications were described the patient was brought to the [facility] and laid in a supine position with his left arm outstretched on an armboard. The area of the left arm was prepped and draped in usual sterile fashion. Timeout was performed in normal fashion. Utilizing ultrasound the basilic vein was visualized and shown to be compressible without any visible thrombus. Under ultrasound guidance the basilic vein was then cannulated with a micropuncture needle and wire was placed under direct visualization of fluoroscopy. Introducer sheath was then placed. The catheter was measured and cut to the appropriate length which was 46 cm. The catheter was then guided through the breakaway sheath and the sheath was removed with good positioning was visualized under fluoroscopy. The catheter was pulled and flushed easily. It was then secured in place in normal fashion. Patient tolerated the procedure well was sent back to his room for recovery.
--- NOTE | 2023-08-20 13:52 | P.PN ---
Subjective Patient is seen for follow-up for acute kidney injury. Currently seen on hemodialysis. Tolerating treatment well. Goal UF of about 2 L. Objective - Vital Signs Vital signs: Vital Signs Temp 97.7 F 08/20/23 08:00 Pulse 98 08/20/23 13:00 Resp 19 08/20/23 13:00 BP 141/72 08/20/23 13:00 Pulse Ox 97 08/20/23 13:00 FiO2 21 08/17/23 09:03 Intake & Output 08/19/23 08/20/23 08/20/23 18:59 06:59 18:59 Intake Total 842 Balance 842 Weight 113.398 kg Intake: Oral 760 Blood Product 82 Pooled Cryoprecipitate 82 Unit [id number] Other: Voiding Method Toilet Toilet Toilet Urinal Urinal Urinal # Voids 1 - Exam Patient is awake, comfortable, no acute distress Bruising noted and the right upper neck area at the site of the catheter with no active bleeding noted Examination of the heart S1 and S2 Examination of the lungs bilateral breath sounds are heard Abdomen is soft obese nontender Examination of lower extremities shows trace edema - Labs CBC & Chem 7: 08/20/23 07:31 08/20/23 07:31 Labs: Abnormal Lab Results - Last 24 Hours (Table) 08/18/23 08/19/23 08/19/23 Range/Units 05:47 05:48 12:31 WBC (3.8-10.6) k/uL RBC (4.30-5.90) m/uL Hgb (13.0-17.5) gm/dL Hct (39.0-53.0) % RDW (11.5-14.5) % Plt Count (150-450) k/uL Blast Cells % % Neutrophils # (Manual) 18.96 H 34.72 H (1.80-7.70) X 10*3/uL Lymphocytes # (Manual) (0.90-5.00) X 10*3/uL Monocytes # (Manual) (0-1.0) k/uL Eosinophils # (Manual) (0.04-0.35) X 10*3/uL Metamyelocytes # (Man) (0) k/uL Myelocytes # (Manual) (0) k/uL Promyelocytes # (Man) 0.75 H (0) k/uL Blast Cells # (Man) (0) k/uL Nucleated RBCs (0-0) /100 WBC NRBC/100 WBC Diff (0.00-0.01) X 10*3/uL Immature Plt Fraction (1.1-6.1) % PT 17.0 H (10.0-12.5) sec INR 1.7 H (<1.2) Fibrinogen 93 L (200-500) mg/dL D-Dimer (<0.60) mg/L FEU Sodium (137-145) mmol/L Chloride (98-107) mmol/L Anion Gap (4.00-12.00) mmol/L BUN (9-20) mg/dL Creatinine (0.66-1.25) mg/dL Est GFR (CKD-EPI) (>=60) BUN/Creatinine Ratio (12.00-20.00) Ratio Glucose (74-99) mg/dL POC Glucose (mg/dL) (70-110) mg/dL Calcium (8.7-10.3) mg/dL Phosphorus (2.4-5.1) mg/dL AST (17-59) U/L Alkaline Phosphatase (38-126) U/L Troponin I (0.000-0.034) ng/mL Total Protein (6.3-8.2) g/dL Albumin (3.8-4.9) g/dL 08/19/23 08/19/23 08/19/23 Range/Units 17:14 17:17 17:17 WBC 74.7 H* (3.8-10.6) k/uL RBC 3.04 L (4.30-5.90) m/uL Hgb 9.0 L D (13.0-17.5) gm/dL Hct 27.9 L (39.0-53.0) % RDW (11.5-14.5) % Plt Count 52 L (150-450) k/uL Blast Cells % 20 H* % Neutrophils # (Manual) 20.10 H (1.80-7.70) X 10*3/uL Lymphocytes # (Manual) (0.90-5.00) X 10*3/uL Monocytes # (Manual) 9.71 H (0-1.0) k/uL Eosinophils # (Manual) (0.04-0.35) X 10*3/uL Metamyelocytes # (Man) 0.75 H (0) k/uL Myelocytes # (Manual) 1.49 H (0) k/uL Promyelocytes # (Man) (0) k/uL Blast Cells # (Man) 14.94 H (0) k/uL Nucleated RBCs 1 H (0-0) /100 WBC NRBC/100 WBC Diff (0.00-0.01) X 10*3/uL Immature Plt Fraction (1.1-6.1) % PT (10.0-12.5) sec INR (<1.2) Fibrinogen (200-500) mg/dL D-Dimer 13.83 H (<0.60) mg/L FEU Sodium (137-145) mmol/L Chloride (98-107) mmol/L Anion Gap (4.00-12.00) mmol/L BUN (9-20) mg/dL Creatinine (0.66-1.25) mg/dL Est GFR (CKD-EPI) (>=60) BUN/Creatinine Ratio (12.00-20.00) Ratio Glucose (74-99) mg/dL POC Glucose (mg/dL) 294 H (70-110) mg/dL Calcium (8.7-10.3) mg/dL Phosphorus (2.4-5.1) mg/dL AST (17-59) U/L Alkaline Phosphatase (38-126) U/L Troponin I (0.000-0.034) ng/mL Total Protein (6.3-8.2) g/dL Albumin (3.8-4.9) g/dL 08/19/23 08/19/23 08/19/23 Range/Units 17:17 17:17 19:44 WBC (3.8-10.6) k/uL RBC (4.30-5.90) m/uL Hgb (13.0-17.5) gm/dL Hct (39.0-53.0) % RDW (11.5-14.5) % Plt Count (150-450) k/uL Blast Cells % % Neutrophils # (Manual) (1.80-7.70) X 10*3/uL Lymphocytes # (Manual) (0.90-5.00) X 10*3/uL Monocytes # (Manual) (0-1.0) k/uL Eosinophils # (Manual) (0.04-0.35) X 10*3/uL Metamyelocytes # (Man) (0) k/uL Myelocytes # (Manual) (0) k/uL Promyelocytes # (Man) (0) k/uL Blast Cells # (Man) (0) k/uL Nucleated RBCs (0-0) /100 WBC NRBC/100 WBC Diff (0.00-0.01) X 10*3/uL Immature Plt Fraction (1.1-6.1) % PT (10.0-12.5) sec INR (<1.2) Fibrinogen (200-500) mg/dL D-Dimer (<0.60) mg/L FEU Sodium 133 L (137-145) mmol/L Chloride 92 L (98-107) mmol/L Anion Gap (4.00-12.00) mmol/L BUN 72 H (9-20) mg/dL Creatinine 5.89 H (0.66-1.25) mg/dL Est GFR (CKD-EPI) (>=60) BUN/Creatinine Ratio (12.00-20.00) Ratio Glucose 282 H (74-99) mg/dL POC Glucose (mg/dL) 280 H (70-110) mg/dL Calcium (8.7-10.3) mg/dL Phosphorus (2.4-5.1) mg/dL AST 112 H (17-59) U/L Alkaline Phosphatase 731 H (38-126) U/L Troponin I 0.348 H* (0.000-0.034) ng/mL Total Protein 6.2 L (6.3-8.2) g/dL Albumin (3.8-4.9) g/dL 08/19/23 08/20/23 08/20/23 Range/Units 21:51 07:04 07:31 WBC (3.8-10.6) k/uL RBC (4.30-5.90) m/uL Hgb (13.0-17.5) gm/dL Hct (39.0-53.0) % RDW (11.5-14.5) % Plt Count (150-450) k/uL Blast Cells % % Neutrophils # (Manual) (1.80-7.70) X 10*3/uL Lymphocytes # (Manual) (0.90-5.00) X 10*3/uL Monocytes # (Manual) (0-1.0) k/uL Eosinophils # (Manual) (0.04-0.35) X 10*3/uL Metamyelocytes # (Man) (0) k/uL Myelocytes # (Manual) (0) k/uL Promyelocytes # (Man) (0) k/uL Blast Cells # (Man) (0) k/uL Nucleated RBCs (0-0) /100 WBC NRBC/100 WBC Diff (0.00-0.01) X 10*3/uL Immature Plt Fraction (1.1-6.1) % PT 15.7 H 15.7 H (10.0-12.5) sec INR 1.5 H 1.5 H (<1.2) Fibrinogen 110 L 110 L (200-500) mg/dL D-Dimer (<0.60) mg/L FEU Sodium (137-145) mmol/L Chloride (98-107) mmol/L Anion Gap (4.00-12.00) mmol/L BUN (9-20) mg/dL Creatinine (0.66-1.25) mg/dL Est GFR (CKD-EPI) (>=60) BUN/Creatinine Ratio (12.00-20.00) Ratio Glucose (74-99) mg/dL POC Glucose (mg/dL) 408 H (70-110) mg/dL Calcium (8.7-10.3) mg/dL Phosphorus (2.4-5.1) mg/dL AST (17-59) U/L Alkaline Phosphatase (38-126) U/L Troponin I (0.000-0.034) ng/mL Total Protein (6.3-8.2) g/dL Albumin (3.8-4.9) g/dL 08/20/23 08/20/23 08/20/23 Range/Units 07:31 07:31 07:31 WBC 80.03 A* (3.8-10.6) k/uL RBC 2.56 L (4.30-5.90) m/uL Hgb 7.2 L (13.0-17.5) gm/dL Hct 22.5 L (39.0-53.0) % RDW 15.2 H (11.5-14.5) % Plt Count 32 L (150-450) k/uL Blast Cells % % Neutrophils # (Manual) (1.80-7.70) X 10*3/uL Lymphocytes # (Manual) 22.41 H (0.90-5.00) X 10*3/uL Monocytes # (Manual) 12.00 H (0-1.0) k/uL Eosinophils # (Manual) 0 L (0.04-0.35) X 10*3/uL Metamyelocytes # (Man) (0) k/uL Myelocytes # (Manual) (0) k/uL Promyelocytes # (Man) (0) k/uL Blast Cells # (Man) (0) k/uL Nucleated RBCs (0-0) /100 WBC NRBC/100 WBC Diff 0.58 H (0.00-0.01) X 10*3/uL Immature Plt Fraction 12.0 H (1.1-6.1) % PT (10.0-12.5) sec INR (<1.2) Fibrinogen (200-500) mg/dL D-Dimer (<0.60) mg/L FEU Sodium 131 L (137-145) mmol/L Chloride 82 L (98-107) mmol/L Anion Gap 26.80 H (4.00-12.00) mmol/L BUN 77.7 H (9-20) mg/dL Creatinine 7.0 H (0.66-1.25) mg/dL Est GFR (CKD-EPI) 8 L (>=60) BUN/Creatinine Ratio 11.10 L (12.00-20.00) Ratio Glucose 371 H (74-99) mg/dL POC Glucose (mg/dL) (70-110) mg/dL Calcium 8.4 L (8.7-10.3) mg/dL Phosphorus 9.7 A* (2.4-5.1) mg/dL AST 358 H (17-59) U/L Alkaline Phosphatase 2438 H (38-126) U/L Troponin I 0.329 H* (0.000-0.034) ng/mL Total Protein 5.7 L (6.3-8.2) g/dL Albumin 3.7 L (3.8-4.9) g/dL 08/20/23 Range/Units 12:33 WBC (3.8-10.6) k/uL RBC (4.30-5.90) m/uL Hgb (13.0-17.5) gm/dL Hct (39.0-53.0) % RDW (11.5-14.5) % Plt Count (150-450) k/uL Blast Cells % % Neutrophils # (Manual) (1.80-7.70) X 10*3/uL Lymphocytes # (Manual) (0.90-5.00) X 10*3/uL Monocytes # (Manual) (0-1.0) k/uL Eosinophils # (Manual) (0.04-0.35) X 10*3/uL Metamyelocytes # (Man) (0) k/uL Myelocytes # (Manual) (0) k/uL Promyelocytes # (Man) (0) k/uL Blast Cells # (Man) (0) k/uL Nucleated RBCs (0-0) /100 WBC NRBC/100 WBC Diff (0.00-0.01) X 10*3/uL Immature Plt Fraction (1.1-6.1) % PT (10.0-12.5) sec INR (<1.2) Fibrinogen (200-500) mg/dL D-Dimer (<0.60) mg/L FEU Sodium (137-145) mmol/L Chloride (98-107) mmol/L Anion Gap (4.00-12.00) mmol/L BUN (9-20) mg/dL Creatinine (0.66-1.25) mg/dL Est GFR (CKD-EPI) (>=60) BUN/Creatinine Ratio (12.00-20.00) Ratio Glucose (74-99) mg/dL POC Glucose (mg/dL) 261 H (70-110) mg/dL Calcium (8.7-10.3) mg/dL Phosphorus (2.4-5.1) mg/dL AST (17-59) U/L Alkaline Phosphatase (38-126) U/L Troponin I (0.000-0.034) ng/mL Total Protein (6.3-8.2) g/dL Albumin (3.8-4.9) g/dL Microbiology - Last 24 Hours (Table) 08/14/23 18:23 Blood Culture - Final Blood 08/14/23 18:15 Blood Culture - Final Blood Assessment and Plan Assessment: 1. Acute kidney injury secondary to ATN secondary to spontaneous tumor lysis syndrome requiring hemodialysis. Concern for tubular obstruction and ischemia from lymphomatous involvement. Creatinine up to 5.4 08/18 and started on HD. Kidney ultrasound from August 08, 2023 showed normal-sized kidneys without evidence of hydronephrosis. UA positive for protein and hematuria. 2. Chronic kidney disease stage IIIa with baseline creatinine 1.3-1.4 in April 2023. Suspect underlying diabetic kidney disease. 3. Recently diagnosed malignancy. Lymphoma versus melanoma versus other. Oncology following. Axillary node biopsy results pending. 4. Hypokalemia from poor intake. Replaced. Better. 5. Metabolic acidosis secondary to acute kidney injury on IV fluids. 6. Diabetes mellitus. 7. Benign hypertension. Exacerbated by steroids. 8. Hypomagnesemia from poor intake. Replaced. Better. 9. Thrombocytopenia. Received platelet transfusions this admission. Hematology following. 10. 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 Status post r asburicase. Plan: Repeat hemodialysis in a.m. DC bicarb drip. Switch to Ringer lactate. Continue with oral sodium bicarb and decrease dose to twice a day.
--- NOTE | 2023-08-20 13:55 | P.PN ---
Subjective Progress Note Date: 08/20/23 CHIEF COMPLAINT: Skin nodules HISTORY OF PRESENT ILLNESS: Patient status post excision of left upper back skin nodule. Patient currently receiving hemodialysis. Discussed with nursing staff. There has been no drainage from the incision. And dressing was removed today by nursing staff with no drainage. PHYSICAL EXAM: VITAL SIGNS: Reviewed. GENERAL: Well-developed in no acute distress. ASSESSMENT: 1. Left upper back skin nodule status post excision 2. New diagnosis of lymphoma PLAN: -Patient can be discharged from surgical standpoint when medically cleared -Continue to follow with oncology service -Follow-up on pathology results Physician Filament Tester note has been reviewed by physician. Signing provider agrees with the documented findings, assessment, and plan of care. Objective - Vital Signs Vital signs: Vital Signs Temp 97.7 F 08/20/23 08:00 Pulse 98 08/20/23 13:00 Resp 19 08/20/23 13:00 BP 141/72 08/20/23 13:00 Pulse Ox 97 08/20/23 13:00 FiO2 21 08/17/23 09:03 Intake & Output 08/19/23 08/20/23 08/20/23 18:59 06:59 18:59 Intake Total 842 Balance 842 Weight 113.398 kg Intake: Oral 760 Blood Product 82 Pooled Cryoprecipitate 82 Unit [id number] Other: Voiding Method Toilet Toilet Toilet Urinal Urinal Urinal # Voids 1 - Labs CBC & Chem 7: 08/20/23 07:31 08/20/23 07:31 Labs: Abnormal Lab Results - Last 24 Hours (Table) 08/18/23 08/19/23 08/19/23 Range/Units 05:47 05:48 12:31 WBC (3.8-10.6) k/uL RBC (4.30-5.90) m/uL Hgb (13.0-17.5) gm/dL Hct (39.0-53.0) % RDW (11.5-14.5) % Plt Count (150-450) k/uL Blast Cells % % Neutrophils # (Manual) 18.96 H 34.72 H (1.80-7.70) X 10*3/uL Lymphocytes # (Manual) (0.90-5.00) X 10*3/uL Monocytes # (Manual) (0-1.0) k/uL Eosinophils # (Manual) (0.04-0.35) X 10*3/uL Metamyelocytes # (Man) (0) k/uL Myelocytes # (Manual) (0) k/uL Promyelocytes # (Man) 0.75 H (0) k/uL Blast Cells # (Man) (0) k/uL Nucleated RBCs (0-0) /100 WBC NRBC/100 WBC Diff (0.00-0.01) X 10*3/uL Immature Plt Fraction (1.1-6.1) % PT 17.0 H (10.0-12.5) sec INR 1.7 H (<1.2) Fibrinogen 93 L (200-500) mg/dL D-Dimer (<0.60) mg/L FEU Sodium (137-145) mmol/L Chloride (98-107) mmol/L Anion Gap (4.00-12.00) mmol/L BUN (9-20) mg/dL Creatinine (0.66-1.25) mg/dL Est GFR (CKD-EPI) (>=60) BUN/Creatinine Ratio (12.00-20.00) Ratio Glucose (74-99) mg/dL POC Glucose (mg/dL) (70-110) mg/dL Calcium (8.7-10.3) mg/dL Phosphorus (2.4-5.1) mg/dL AST (17-59) U/L Alkaline Phosphatase (38-126) U/L Troponin I (0.000-0.034) ng/mL Total Protein (6.3-8.2) g/dL Albumin (3.8-4.9) g/dL 08/19/23 08/19/23 08/19/23 Range/Units 17:14 17:17 17:17 WBC 74.7 H* (3.8-10.6) k/uL RBC 3.04 L (4.30-5.90) m/uL Hgb 9.0 L D (13.0-17.5) gm/dL Hct 27.9 L (39.0-53.0) % RDW (11.5-14.5) % Plt Count 52 L (150-450) k/uL Blast Cells % 20 H* % Neutrophils # (Manual) 20.10 H (1.80-7.70) X 10*3/uL Lymphocytes # (Manual) (0.90-5.00) X 10*3/uL Monocytes # (Manual) 9.71 H (0-1.0) k/uL Eosinophils # (Manual) (0.04-0.35) X 10*3/uL Metamyelocytes # (Man) 0.75 H (0) k/uL Myelocytes # (Manual) 1.49 H (0) k/uL Promyelocytes # (Man) (0) k/uL Blast Cells # (Man) 14.94 H (0) k/uL Nucleated RBCs 1 H (0-0) /100 WBC NRBC/100 WBC Diff (0.00-0.01) X 10*3/uL Immature Plt Fraction (1.1-6.1) % PT (10.0-12.5) sec INR (<1.2) Fibrinogen (200-500) mg/dL D-Dimer 13.83 H (<0.60) mg/L FEU Sodium (137-145) mmol/L Chloride (98-107) mmol/L Anion Gap (4.00-12.00) mmol/L BUN (9-20) mg/dL Creatinine (0.66-1.25) mg/dL Est GFR (CKD-EPI) (>=60) BUN/Creatinine Ratio (12.00-20.00) Ratio Glucose (74-99) mg/dL POC Glucose (mg/dL) 294 H (70-110) mg/dL Calcium (8.7-10.3) mg/dL Phosphorus (2.4-5.1) mg/dL AST (17-59) U/L Alkaline Phosphatase (38-126) U/L Troponin I (0.000-0.034) ng/mL Total Protein (6.3-8.2) g/dL Albumin (3.8-4.9) g/dL 08/19/23 08/19/23 08/19/23 Range/Units 17:17 17:17 19:44 WBC (3.8-10.6) k/uL RBC (4.30-5.90) m/uL Hgb (13.0-17.5) gm/dL Hct (39.0-53.0) % RDW (11.5-14.5) % Plt Count (150-450) k/uL Blast Cells % % Neutrophils # (Manual) (1.80-7.70) X 10*3/uL Lymphocytes # (Manual) (0.90-5.00) X 10*3/uL Monocytes # (Manual) (0-1.0) k/uL Eosinophils # (Manual) (0.04-0.35) X 10*3/uL Metamyelocytes # (Man) (0) k/uL Myelocytes # (Manual) (0) k/uL Promyelocytes # (Man) (0) k/uL Blast Cells # (Man) (0) k/uL Nucleated RBCs (0-0) /100 WBC NRBC/100 WBC Diff (0.00-0.01) X 10*3/uL Immature Plt Fraction (1.1-6.1) % PT (10.0-12.5) sec INR (<1.2) Fibrinogen (200-500) mg/dL D-Dimer (<0.60) mg/L FEU Sodium 133 L (137-145) mmol/L Chloride 92 L (98-107) mmol/L Anion Gap (4.00-12.00) mmol/L BUN 72 H (9-20) mg/dL Creatinine 5.89 H (0.66-1.25) mg/dL Est GFR (CKD-EPI) (>=60) BUN/Creatinine Ratio (12.00-20.00) Ratio Glucose 282 H (74-99) mg/dL POC Glucose (mg/dL) 280 H (70-110) mg/dL Calcium (8.7-10.3) mg/dL Phosphorus (2.4-5.1) mg/dL AST 112 H (17-59) U/L Alkaline Phosphatase 731 H (38-126) U/L Troponin I 0.348 H* (0.000-0.034) ng/mL Total Protein 6.2 L (6.3-8.2) g/dL Albumin (3.8-4.9) g/dL 08/19/23 08/20/23 08/20/23 Range/Units 21:51 07:04 07:31 WBC (3.8-10.6) k/uL RBC (4.30-5.90) m/uL Hgb (13.0-17.5) gm/dL Hct (39.0-53.0) % RDW (11.5-14.5) % Plt Count (150-450) k/uL Blast Cells % % Neutrophils # (Manual) (1.80-7.70) X 10*3/uL Lymphocytes # (Manual) (0.90-5.00) X 10*3/uL Monocytes # (Manual) (0-1.0) k/uL Eosinophils # (Manual) (0.04-0.35) X 10*3/uL Metamyelocytes # (Man) (0) k/uL Myelocytes # (Manual) (0) k/uL Promyelocytes # (Man) (0) k/uL Blast Cells # (Man) (0) k/uL Nucleated RBCs (0-0) /100 WBC NRBC/100 WBC Diff (0.00-0.01) X 10*3/uL Immature Plt Fraction (1.1-6.1) % PT 15.7 H 15.7 H (10.0-12.5) sec INR 1.5 H 1.5 H (<1.2) Fibrinogen 110 L 110 L (200-500) mg/dL D-Dimer (<0.60) mg/L FEU Sodium (137-145) mmol/L Chloride (98-107) mmol/L Anion Gap (4.00-12.00) mmol/L BUN (9-20) mg/dL Creatinine (0.66-1.25) mg/dL Est GFR (CKD-EPI) (>=60) BUN/Creatinine Ratio (12.00-20.00) Ratio Glucose (74-99) mg/dL POC Glucose (mg/dL) 408 H (70-110) mg/dL Calcium (8.7-10.3) mg/dL Phosphorus (2.4-5.1) mg/dL AST (17-59) U/L Alkaline Phosphatase (38-126) U/L Troponin I (0.000-0.034) ng/mL Total Protein (6.3-8.2) g/dL Albumin (3.8-4.9) g/dL 08/20/23 08/20/23 08/20/23 Range/Units 07:31 07:31 07:31 WBC 80.03 A* (3.8-10.6) k/uL RBC 2.56 L (4.30-5.90) m/uL Hgb 7.2 L (13.0-17.5) gm/dL Hct 22.5 L (39.0-53.0) % RDW 15.2 H (11.5-14.5) % Plt Count 32 L (150-450) k/uL Blast Cells % % Neutrophils # (Manual) (1.80-7.70) X 10*3/uL Lymphocytes # (Manual) 22.41 H (0.90-5.00) X 10*3/uL Monocytes # (Manual) 12.00 H (0-1.0) k/uL Eosinophils # (Manual) 0 L (0.04-0.35) X 10*3/uL Metamyelocytes # (Man) (0) k/uL Myelocytes # (Manual) (0) k/uL Promyelocytes # (Man) (0) k/uL Blast Cells # (Man) (0) k/uL Nucleated RBCs (0-0) /100 WBC NRBC/100 WBC Diff 0.58 H (0.00-0.01) X 10*3/uL Immature Plt Fraction 12.0 H (1.1-6.1) % PT (10.0-12.5) sec INR (<1.2) Fibrinogen (200-500) mg/dL D-Dimer (<0.60) mg/L FEU Sodium 131 L (137-145) mmol/L Chloride 82 L (98-107) mmol/L Anion Gap 26.80 H (4.00-12.00) mmol/L BUN 77.7 H (9-20) mg/dL Creatinine 7.0 H (0.66-1.25) mg/dL Est GFR (CKD-EPI) 8 L (>=60) BUN/Creatinine Ratio 11.10 L (12.00-20.00) Ratio Glucose 371 H (74-99) mg/dL POC Glucose (mg/dL) (70-110) mg/dL Calcium 8.4 L (8.7-10.3) mg/dL Phosphorus 9.7 A* (2.4-5.1) mg/dL AST 358 H (17-59) U/L Alkaline Phosphatase 2438 H (38-126) U/L Troponin I 0.329 H* (0.000-0.034) ng/mL Total Protein 5.7 L (6.3-8.2) g/dL Albumin 3.7 L (3.8-4.9) g/dL 08/20/23 Range/Units 12:33 WBC (3.8-10.6) k/uL RBC (4.30-5.90) m/uL Hgb (13.0-17.5) gm/dL Hct (39.0-53.0) % RDW (11.5-14.5) % Plt Count (150-450) k/uL Blast Cells % % Neutrophils # (Manual) (1.80-7.70) X 10*3/uL Lymphocytes # (Manual) (0.90-5.00) X 10*3/uL Monocytes # (Manual) (0-1.0) k/uL Eosinophils # (Manual) (0.04-0.35) X 10*3/uL Metamyelocytes # (Man) (0) k/uL Myelocytes # (Manual) (0) k/uL Promyelocytes # (Man) (0) k/uL Blast Cells # (Man) (0) k/uL Nucleated RBCs (0-0) /100 WBC NRBC/100 WBC Diff (0.00-0.01) X 10*3/uL Immature Plt Fraction (1.1-6.1) % PT (10.0-12.5) sec INR (<1.2) Fibrinogen (200-500) mg/dL D-Dimer (<0.60) mg/L FEU Sodium (137-145) mmol/L Chloride (98-107) mmol/L Anion Gap (4.00-12.00) mmol/L BUN (9-20) mg/dL Creatinine (0.66-1.25) mg/dL Est GFR (CKD-EPI) (>=60) BUN/Creatinine Ratio (12.00-20.00) Ratio Glucose (74-99) mg/dL POC Glucose (mg/dL) 261 H (70-110) mg/dL Calcium (8.7-10.3) mg/dL Phosphorus (2.4-5.1) mg/dL AST (17-59) U/L Alkaline Phosphatase (38-126) U/L Troponin I (0.000-0.034) ng/mL Total Protein (6.3-8.2) g/dL Albumin (3.8-4.9) g/dL Microbiology - Last 24 Hours (Table) 08/14/23 18:23 Blood Culture - Final Blood 08/14/23 18:15 Blood Culture - Final Blood
--- NOTE | 2023-08-20 15:21 | P.PN ---
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 In f/u today pt is receiving dialysis. He has massive bruising where the dialysis catheter was placed, there does seem to be a bit of oozing around the catheter site. Patient in general is anxious, uncomfortable, he is on CPAP and requiring little bit higher levels of oxygen. No current fever, nausea or vomiting, he has no appetite. Generalized weakness, patient has not been out of bed independently. Objective - Vital Signs Vital signs: Vital Signs Temp 97.7 F 08/20/23 08:00 Pulse 107 H 08/20/23 08:00 Resp 19 08/20/23 08:00 BP 149/86 08/20/23 08:00 Pulse Ox 92 L 08/20/23 08:00 FiO2 21 08/17/23 09:03 Intake & Output 08/19/23 08/20/23 08/20/23 18:59 06:59 18:59 Intake Total 842 Balance 842 Intake: Oral 760 Blood Product 82 Pooled Cryoprecipitate 82 Unit [id number] Other: Voiding Method Toilet Toilet Toilet Urinal Urinal Urinal # Voids 1 - Constitutional General appearance: Present: cooperative, mild distress, obese - EENT Eyes: Present: anicteric sclerae, edentulous ENT: Present: hearing grossly normal - Respiratory Respiratory: bilateral: diminished - Cardiovascular Details: Tachycardia, regular rhythm - Peripheral edema leg Peripheral Edema: bilateral: Trace - Gastrointestinal General gastrointestinal: Present: distended, soft, umbilical hernia - Integumentary Integumentary Comment(s): Persistent nodular rash greatest on the face and upper back - Neurologic Neurologic: Present: CNII-XII intact (Grossly) - Musculoskeletal Musculoskeletal: Present: generalized weakness - Psychiatric Psychiatric Comment(s): Mild to moderate anxiety. Psychiatric: Present: A&O x's 3 - Labs CBC & Chem 7: 08/20/23 07:31 08/20/23 07:31 Labs: Abnormal Lab Results - Last 24 Hours (Table) 08/18/23 08/19/23 08/19/23 Range/Units 05:47 05:48 12:31 WBC (3.8-10.6) k/uL RBC (4.30-5.90) m/uL Hgb (13.0-17.5) gm/dL Hct (39.0-53.0) % RDW (11.5-14.5) % Plt Count (150-450) k/uL Blast Cells % % Neutrophils # (Manual) 18.96 H 34.72 H (1.80-7.70) X 10*3/uL Lymphocytes # (Manual) (0.90-5.00) X 10*3/uL Monocytes # (Manual) (0-1.0) k/uL Eosinophils # (Manual) (0.04-0.35) X 10*3/uL Metamyelocytes # (Man) (0) k/uL Myelocytes # (Manual) (0) k/uL Promyelocytes # (Man) 0.75 H (0) k/uL Blast Cells # (Man) (0) k/uL Nucleated RBCs (0-0) /100 WBC NRBC/100 WBC Diff (0.00-0.01) X 10*3/uL Immature Plt Fraction (1.1-6.1) % PT 17.0 H (10.0-12.5) sec INR 1.7 H (<1.2) Fibrinogen 93 L (200-500) mg/dL D-Dimer (<0.60) mg/L FEU Sodium (137-145) mmol/L Chloride (98-107) mmol/L BUN (9-20) mg/dL Creatinine (0.66-1.25) mg/dL Glucose (74-99) mg/dL POC Glucose (mg/dL) (70-110) mg/dL AST (17-59) U/L Alkaline Phosphatase (38-126) U/L Troponin I (0.000-0.034) ng/mL Total Protein (6.3-8.2) g/dL 08/19/23 08/19/23 08/19/23 Range/Units 17:14 17:17 17:17 WBC 74.7 H* (3.8-10.6) k/uL RBC 3.04 L (4.30-5.90) m/uL Hgb 9.0 L D (13.0-17.5) gm/dL Hct 27.9 L (39.0-53.0) % RDW (11.5-14.5) % Plt Count 52 L (150-450) k/uL Blast Cells % 20 H* % Neutrophils # (Manual) 20.10 H (1.80-7.70) X 10*3/uL Lymphocytes # (Manual) (0.90-5.00) X 10*3/uL Monocytes # (Manual) 9.71 H (0-1.0) k/uL Eosinophils # (Manual) (0.04-0.35) X 10*3/uL Metamyelocytes # (Man) 0.75 H (0) k/uL Myelocytes # (Manual) 1.49 H (0) k/uL Promyelocytes # (Man) (0) k/uL Blast Cells # (Man) 14.94 H (0) k/uL Nucleated RBCs 1 H (0-0) /100 WBC NRBC/100 WBC Diff (0.00-0.01) X 10*3/uL Immature Plt Fraction (1.1-6.1) % PT (10.0-12.5) sec INR (<1.2) Fibrinogen (200-500) mg/dL D-Dimer 13.83 H (<0.60) mg/L FEU Sodium (137-145) mmol/L Chloride (98-107) mmol/L BUN (9-20) mg/dL Creatinine (0.66-1.25) mg/dL Glucose (74-99) mg/dL POC Glucose (mg/dL) 294 H (70-110) mg/dL AST (17-59) U/L Alkaline Phosphatase (38-126) U/L Troponin I (0.000-0.034) ng/mL Total Protein (6.3-8.2) g/dL 08/19/23 08/19/23 08/19/23 Range/Units 17:17 17:17 19:44 WBC (3.8-10.6) k/uL RBC (4.30-5.90) m/uL Hgb (13.0-17.5) gm/dL Hct (39.0-53.0) % RDW (11.5-14.5) % Plt Count (150-450) k/uL Blast Cells % % Neutrophils # (Manual) (1.80-7.70) X 10*3/uL Lymphocytes # (Manual) (0.90-5.00) X 10*3/uL Monocytes # (Manual) (0-1.0) k/uL Eosinophils # (Manual) (0.04-0.35) X 10*3/uL Metamyelocytes # (Man) (0) k/uL Myelocytes # (Manual) (0) k/uL Promyelocytes # (Man) (0) k/uL Blast Cells # (Man) (0) k/uL Nucleated RBCs (0-0) /100 WBC NRBC/100 WBC Diff (0.00-0.01) X 10*3/uL Immature Plt Fraction (1.1-6.1) % PT (10.0-12.5) sec INR (<1.2) Fibrinogen (200-500) mg/dL D-Dimer (<0.60) mg/L FEU Sodium 133 L (137-145) mmol/L Chloride 92 L (98-107) mmol/L BUN 72 H (9-20) mg/dL Creatinine 5.89 H (0.66-1.25) mg/dL Glucose 282 H (74-99) mg/dL POC Glucose (mg/dL) 280 H (70-110) mg/dL AST 112 H (17-59) U/L Alkaline Phosphatase 731 H (38-126) U/L Troponin I 0.348 H* (0.000-0.034) ng/mL Total Protein 6.2 L (6.3-8.2) g/dL 08/19/23 08/20/23 08/20/23 Range/Units 21:51 07:04 07:31 WBC (3.8-10.6) k/uL RBC (4.30-5.90) m/uL Hgb (13.0-17.5) gm/dL Hct (39.0-53.0) % RDW (11.5-14.5) % Plt Count (150-450) k/uL Blast Cells % % Neutrophils # (Manual) (1.80-7.70) X 10*3/uL Lymphocytes # (Manual) (0.90-5.00) X 10*3/uL Monocytes # (Manual) (0-1.0) k/uL Eosinophils # (Manual) (0.04-0.35) X 10*3/uL Metamyelocytes # (Man) (0) k/uL Myelocytes # (Manual) (0) k/uL Promyelocytes # (Man) (0) k/uL Blast Cells # (Man) (0) k/uL Nucleated RBCs (0-0) /100 WBC NRBC/100 WBC Diff (0.00-0.01) X 10*3/uL Immature Plt Fraction (1.1-6.1) % PT 15.7 H 15.7 H (10.0-12.5) sec INR 1.5 H 1.5 H (<1.2) Fibrinogen 110 L 110 L (200-500) mg/dL D-Dimer (<0.60) mg/L FEU Sodium (137-145) mmol/L Chloride (98-107) mmol/L BUN (9-20) mg/dL Creatinine (0.66-1.25) mg/dL Glucose (74-99) mg/dL POC Glucose (mg/dL) 408 H (70-110) mg/dL AST (17-59) U/L Alkaline Phosphatase (38-126) U/L Troponin I (0.000-0.034) ng/mL Total Protein (6.3-8.2) g/dL 08/20/23 08/20/23 Range/Units 07:31 07:31 WBC 80.03 A* (3.8-10.6) k/uL RBC 2.56 L (4.30-5.90) m/uL Hgb 7.2 L (13.0-17.5) gm/dL Hct 22.5 L (39.0-53.0) % RDW 15.2 H (11.5-14.5) % Plt Count 32 L (150-450) k/uL Blast Cells % % Neutrophils # (Manual) (1.80-7.70) X 10*3/uL Lymphocytes # (Manual) 22.41 H (0.90-5.00) X 10*3/uL Monocytes # (Manual) 12.00 H (0-1.0) k/uL Eosinophils # (Manual) 0 L (0.04-0.35) X 10*3/uL Metamyelocytes # (Man) (0) k/uL Myelocytes # (Manual) (0) k/uL Promyelocytes # (Man) (0) k/uL Blast Cells # (Man) (0) k/uL Nucleated RBCs (0-0) /100 WBC NRBC/100 WBC Diff 0.58 H (0.00-0.01) X 10*3/uL Immature Plt Fraction 12.0 H (1.1-6.1) % PT (10.0-12.5) sec INR (<1.2) Fibrinogen (200-500) mg/dL D-Dimer (<0.60) mg/L FEU Sodium (137-145) mmol/L Chloride (98-107) mmol/L BUN (9-20) mg/dL Creatinine (0.66-1.25) mg/dL Glucose (74-99) mg/dL POC Glucose (mg/dL) (70-110) mg/dL AST (17-59) U/L Alkaline Phosphatase (38-126) U/L Troponin I 0.329 H* (0.000-0.034) ng/mL Total Protein (6.3-8.2) g/dL Microbiology - Last 24 Hours (Table) 08/14/23 18:23 Blood Culture - Final Blood 08/14/23 18:15 Blood Culture - Final Blood Assessment and Plan (1) Lymphoma Current Visit: Yes Status: Acute Priority: High Code(s): C85.90 - NON- HODGKIN LYMPHOMA, UNSPECIFIED, UNSPECIFIED SITE SNOMED Code(s): 068856520 (2) Acute kidney injury Current Visit: Yes Status: Acute Priority: High Code(s): N17.9 - ACUTE KIDNEY FAILURE, UNSPECIFIED SNOMED Code(s): 66734917 (3) Leukocytosis Current Visit: Yes Status: Acute Priority: High Code(s): D72.829 - ELEVATED WHITE BLOOD CELL COUNT, UNSPECIFIED SNOMED Code(s): 859587897 (4) Thrombocytopenia Current Visit: Yes Status: Acute Priority: High Code(s): D69.6 - THROMBOCYTOPENIA, UNSPECIFIED SNOMED Code(s): 730091978 Plan: 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 Over the last 4 weeks have multiplied exponentially and now cover his whole body, more dense on the head, neck, upper back and chest, scant on the extremities -Pathology reports: Collected 07/25/2023. Neoplasm of uncertain behavior versus melanoma versus granuloma versus lymphoblastic T-cell lymphoma are the differentials. Lesion is positive for CD5 and CD56 immunostains. Additional studies will need to be performed to confirm the diagnosis. -Surgery collected additional tissue today for additional studies to be performed as well as flow cytometry 08/17, path pending. -Case has been discussed with Dr. Brannon at [facility]. Recommendation is to initiate therapy with hyper-CVAD part A. Orders have been placed for the same. -PICC line access was able to be obtained today by Vascular surgery. -Start chemo as soon as available Spontaneous TLS. -100mg allopurinol cont -Elitek given -TLS labs daily ARF -Worsening renal function-Nephrology following and treating. Pt has started dialysis Bicytopenia -Secondary to disease -No transfusions needed today -Transfuse for hemoglobin less than 7, platelets less than 10,000 or if symptomatic. -Transfuse with irradiated blood products only DIC -Secondary to hematological derangements from acute leukemia. -Patient has received cryoprecipitate for fibrinogen less than 100, INR was 1.7. -Fibrinogen 110 today, INR 1.5. Additional unit of cryoprecipitate ordered. -Coags and fibrinogen daily. As the day went on pt anxiety increased-xanax ordered. He was having trouble concentrating, mildly confused at times. Case was discussed with his father who is agreeable to starting treatment as soon as possible. Doctor attests: I performed a history and physical examination of this patient, developed impression and plan of care. Discussed with dictator. I agree with dictators note, documented as a scribe.
--- NOTE | 2023-08-20 15:59 | IR ---
EXAMINATION TYPE: IR cvc insert >=5 years DATE OF EXAM: 08/20/2023 COMPARISON: NONE HISTORY: Fluoroscopy time. Fluoroscopy was provided to the referring clinician.
[2023-08-20 16:28] LABS: Glucose,Whole Blood 266 mg/dL (70-110)
[2023-08-20] MEDS: SALT AND SODA MOUTHWASH 1,000 ML PO SCH (18:45)
[2023-08-20 19:03] LABS: Glucose,Whole Blood 220 mg/dL (70-110)
[2023-08-20] MEDS: LACTATED RINGERS 1,000 ML IV SCH (19:50)
--- NOTE | 2023-08-20 20:14 | XR ---
EXAMINATION: XR chest 1V portable DATE AND TIME: 08/20/2023 7:55 PM CLINICAL INDICATION: PHH; SOB TECHNIQUE: Portable semierect upright AP view COMPARISON: 08/19/2023 FINDINGS/IMPRESSION: Right IJ central line tip superimposed over the distal SVC. Left upper right PICC line tip superimpos ed over the distal SVC. No definite acute pulmonary process, and the pleural spaces are negative as s een. EKG leads. The cardiac silhouette is not enlarged. The skeletal structures and soft tissues are negative for acute findings.
[2023-08-20] MEDS: SODIUM BICARBONATE TAB 650 MG TAB PO SCH (20:31)
[2023-08-20 20:37] LABS: Glucose,Whole Blood 225 mg/dL (70-110)
[2023-08-20] MEDS: INSULIN DETEMIR (LEVEMIR) 100 UNIT/ML SYR SQ SCH (20:41)
[2023-08-20 21:59] LABS: MCHC 33.5 g/dL (31.0-37.0); Mean Platelet Volume 8.8; RBC 2.23 m/uL (4.30-5.90); RDW 15.3 % (11.5-15.5); WBC 48.3 k/uL (3.8-10.6)
[2023-08-20 22:31] LABS: Glucose,Whole Blood 207 mg/dL (70-110)
[2023-08-20 22:43] LABS: HGB 6.5 gm/dL (13.0-17.5)
[2023-08-20 22:43] LABS: ABG Base Excess 3.2 mmol/L; ABG HCO3 26 mmol/L (21-25); ABG Oxygen Saturation 94.5 % (94-97); ABG PCO2 30 mmHg (35-45); ABG PH 7.54 (7.35-7.45); ABG PO2 68 mmHg (83-108); ABG TCO2 27 mmol/L (19-24); Allen Test Performed? Yes
[2023-08-20 22:44] LABS: HCT 19.3 % (39.0-53.0); MCV 86.5 fL (80.0-100.0)
[2023-08-20 23:21] LABS: Platelet Count 17 k/uL (150-450)
[2023-08-21 01:32] VITALS: TEMP 97.7
--- NOTE | 2023-08-21 01:34 | P.CNPUL ---
History of Present Illness Consult date: 08/21/23 Requesting physician: Arnold Osborn Reason for consult: other (ICU management, tumor lysis syndrome) Chief complaint: Sent in from his primary care provider for abnormal labs History of present illness: Patient is a 62-year-old white male with past medical history significant for recent diagnosis of lymphoma, diabetes mellitus, hypertension, asthma, obstructive sleep apnea with nasal CPAP. Patient was actually admitted back on August 14, after he was sent in from his primary care provider, Dr. Osborn, for abnormal labs. Patient is a poor historian. He reportedly was recently diagnosed with lymphoma. Patient had a follow-up at his primary care provider's office and was found to have acute kidney injury, significant leukocytosis, and bicytopenia. He was admitted with tumor lysis syndrome. He developed acute renal failure, and had a hemodialysis catheter placed on August 18. Urinalysis was positive for protein and blood. Not concerning for UTI. Patient was empirically placed on Levaquin. Of note, he is also had multiple nodules form on his chest, back, and face. A CT of his chest, abdomen, and pelvis on arrival demonstrated new right axillary adenopathy measuring up to 3.6 cm. There were also new scattered subcutaneous soft tissue deposits/nodules along the anterior chest and left lateral chest measuring up to 1.2 cm. New splenomegaly at 16.4 cm and new right adrenal gland nodule measuring up to 1.3 cm. New renal fat stranding of both kidneys. No hydronephrosis. There was a moderate-sized periumbilical hernia measuring 5 point centimeters wide. Fat str anding and on the underlying omental fat behind the hernia sac suggesting some inflammation. Patient was originally admitted to the oncology unit. He has underwent biopsy of his multiple skin nodules with an excision of the left upper back. Pathology is pending.During his admission, he developed some ecchymosis surrounding his right subclavian hemodialysis catheter he also has generalized petechiae and purpura. Patient was worked up for DIC. Fibrinogen level on the August 19 was 93, D-dimer was elevated at 13.8, PTT 26. Patient has received 2 units of cryoprecipitate, 1 platelet. No other evidence of bleeding was noted. CBC from yesterday: WBC count 80, hemoglobin 7.2, hematocrit 22.5, platelets 32,000. Most recent BMP from yesterday includes a sodium 131, potassium 4.5, chloride 82, serum bicarb 22, BUN 77, creatinine 7, glucose 207. LFTs with an AST of 358, ALT 43, ALP 2438. Troponins are elevated at 0.348 and 0.39. Blast cells were elevated at 20. Oncology has been following the patient, and there are plans to transfer the patient to [facility] for systemic tr eatment. Earlier yesterday, the patient was transferred to the intensive care unit. He was noted to be short of breath and in some respiratory distress. Chest x-ray did not show any acute cardiopulmonary process. Earlier, the nurse noted the patient attempting to get up to the side of the bed and was in some respiratory distress. An ABG was drawn which has a PaO2 of 68, pCO2 of 30, pH of 7.54. This was done on 5 L nasal cannula. He is currently resting in bed, on his nasal CPAP with 6 L nasal cannula supplemented. He is in no distress. He is alert; oriented to self and place only. He does participate in the interview and follows commands. A follow-up CBC was drawn which shows a WBC count down to 48.3, hemoglobin 6.5, hematocrit 19.3, platelets 17,000. No overt signs of hemorrhaging. No nausea vomiting, hematemesis, GI bleed. I did order 1 unit of PRBCs to be transfused now. He has adequate IV access with a left arm PICC line. LR is infusing at 75 mL/h. No vasopressors required. Blood pressure is normotensive. Heart rhythm appears normal sinus on bedside monitor with a rate of 82 bpm. While at rest, the patient is in no respiratory distress. Likely related to his anemia. He is denying any complaints at this time.Currently, the patient has a bed at [facility]. We are waiting for transport. Review of Systems REVIEW OF SYSTEMS: CONSTITUTIONAL: Denies any recent significant weight loss or weight gain. EYES: Denies change in vision. EARS, NOSE, MOUTH, THROAT: Denies headaches, denies sore throat. CARDIOVASCULAR: Denies chest pain, palpitations or syncopal episodes. RESPIRATORY: Denies shortness of breath, cough, congestion or hemoptysis. GASTROINTESTINAL: Denies change in appetite, abdominal pain, nausea and vomiting, or diarrhea GENITOURINARY: Denies hematuria, denies infections. MUSKULOSKELETAL: Denies pain, denies swelling. INTEGUMENTARY: Admits multiple skin nodules forming on his chest and back and face. NEUROLOGICAL: Denies recent memory loss, no recent seizure activity. PSYCHIATRIC: Denies anxiety, denies depression. HEMATOLOGIC/LYMPHATIC: Denies anemia, denies enlarged lymph node Past Medical History Past Medical History: Asthma, Chest Pain / Angina, Diabetes Mellitus, Hyperlipidemia, Hypertension, Renal Disease, Sleep Apnea/CPAP/BIPAP Additional Past Medical History / Comment(s): uses CPAP, decreased kidney function, umbilical hernia currently, recent adm. for chest pain, no problems found per pt. History of Any Multi-Drug Resistant Organisms: None Reported Past Surgical History: Heart Catheterization, Hernia Repair, Orthopedic Surgery Additional Past Surgical History / Comment(s): left shoulder surg., mult. right ankle surgeries Past Anesthesia/Blood Transfusion Reactions: No Reported Reaction Past Psychological History: No Psychological Hx Reported Smoking Status: Former smoker Medications and Allergies Home Medications Medication Instructions Recorded Confirmed Type Metoprolol Tartrate [Lopressor] 50 mg PO BID 11/29/16 08/14/23 History Pioglitazone [Actos] 30 mg PO DAILY 11/29/16 08/14/23 History Simvastatin 40 mg PO HS 11/29/16 08/14/23 History Albuterol Inhaler [Ventolin Hfa 2 puff INHALATION RT-Q6H PRN 04/12/23 08/14/23 History Inhaler] Insulin Degludec [Tresiba 50 units SQ HS 04/12/23 08/14/23 History Flextouch U-200 Pen] Montelukast [Singulair] 10 mg PO DAILY 04/12/23 08/14/23 History Omeprazole 20 mg PO BID 04/12/23 08/14/23 History Budesonide/Glycopyr/Formoterol 2 puff INHALATION RT-DAILY 08/14/23 08/14/23 History [Breztri Aerosphere Inhaler] Tamsulosin [Flomax] 0.4 mg PO DAILY 08/14/23 08/14/23 History Tirzepatide [Mounjaro] 7.5 mg SQ MO 08/14/23 08/14/23 History Allergies Allergy/AdvReac Type Severity Reaction Status Date / Time shellfish derived [Shellfish] Allergy Mild Itching Verified 08/14/23 19:33 Penicillins Allergy Anaphylaxis Verified 08/14/23 19:33 Physical Exam Vitals: Vital Signs Temp Pulse Pulse Pulse Resp BP BP 08/21/23 00:00 90 22 08/20/23 23:30 82 24 126/71 08/20/23 23:00 85 26 H 116/65 08/20/23 22:30 83 44 H 113/62 08/20/23 22:00 93 31 H 138/70 08/20/23 21:30 90 35 H 132/74 08/20/23 21:00 93 23 134/72 08/20/23 20:30 96 15 139/79 08/20/23 20:06 96 08/20/23 20:00 93 27 H 126/61 08/20/23 19:54 92 08/20/23 19:30 96 29 H 123/71 08/20/23 19:00 90 30 H 131/64 08/20/23 18:30 99 12 123/69 08/20/23 18:18 97.5 F L 98 20 143/82 08/20/23 18:00 97 17 118/64 08/20/23 17:30 98 30 H 105/62 08/20/23 17:00 99 23 116/61 08/20/23 16:45 96 30 H 138/79 08/20/23 16:30 97.6 F 90 13 138/79 08/20/23 16:00 98 30 H 08/20/23 15:54 86 129/68 08/20/23 15:29 95 124/66 08/20/23 15:27 97 124/66 08/20/23 15:19 92 113/64 08/20/23 13:59 97.6 F 105 H 18 145/74 08/20/23 13:00 98 19 141/72 08/20/23 08:00 97.7 F 107 H 19 149/86 08/20/23 01:15 97.6 F 92 20 145/69 Pulse Ox 08/21/23 00:00 91 L 08/20/23 23:30 92 L 08/20/23 23:00 93 L 08/20/23 22:30 93 L 08/20/23 22:00 91 L 08/20/23 21:30 92 L 08/20/23 21:00 94 L 08/20/23 20:30 93 L 08/20/23 20:06 08/20/23 20:00 98 08/20/23 19:54 08/20/23 19:30 95 08/20/23 19:00 96 08/20/23 18:30 93 L 08/20/23 18:18 08/20/23 18:00 93 L 08/20/23 17:30 94 L 08/20/23 17:00 92 L 08/20/23 16:45 93 L 08/20/23 16:30 94 L 08/20/23 16:00 08/20/23 15:54 96 08/20/23 15:29 91 L 08/20/23 15:27 90 L 08/20/23 15:19 95 08/20/23 13:59 96 08/20/23 13:00 97 08/20/23 08:00 92 L 08/20/23 01:15 91 L Intake and Output 08/20/23 08/20/23 08/21/23 14:59 22:59 06:59 Intake Total 811 150 Output Total 2500 Balance -1689 150 Intake: IV 225 150 Lactated Ringers 1,000 ml 225 150 @ 75 mls/hr IV .[id number] [facility] Rx#:[id number] Blood Product 86 Pooled Cryoprecipitate 86 Unit [id number] Hemodialysis 500 Output: Urine 0 Hemodialysis 2500 Other: Voiding Method Toilet Urinal Urinal Urinal Weight 113.398 kg GENERAL EXAM: Alert, 62-year-old white male, lying in bed, in a semi-Fowlers position, comfortable in no apparent distress. HEAD: Normocephalic and atraumatic. Multiple skin/soft tissue fleshy colored nodules and papules EYES: Normal reaction of pupils, equal size. NOSE: Clear with pink turbinates. THROAT: Patient has dry mucous membranes. There is a scant amount of dried blood on the hard palate and lips NECK: Right neck ecchymosis without any significant palpable hematoma CHEST: Right subclavian hemodialysis catheter with surrounding ecchymosis. LUNGS: Equal air entry with no crackles, wheeze, rhonchi or dullness. On nasal CPAP with 6 L supplemental oxygen bled in. No conversational dyspnea or accessory muscle use.. CVS: S1 and S2 normal with no audible murmur, regular rhythm. No extra heart sounds ABDOMEN: Obese abdomen with a umbilical hernia. I am not able to appreciate any organomegaly with bimanual palpation, active bowel sounds, no guarding or rigidity. SPINE: No scoliosis or deformity SKIN: Diffuse petechiae and purpura. Multiple skin/soft tissue fleshy colored nodules and papules on the anterior and posterior chest CENTRAL NERVOUS SYSTEM: No focal deficits, tone is normal in all 4 extremities. EXTREMITIES: There is no peripheral edema, clubbing, or cyanosis. Peripheral pulses are intact. There is appreciable right axillary lymphadenopathy Results - Laboratory Findings CBC and BMP: 08/20/23 21:33 08/20/23 07:31 ABG ABG pH 7.54 (7.35-7.45) H 08/20/23 22:28 ABG pCO2 30 mmHg (35-45) L 08/20/23 22:28 ABG pO2 68 mmHg (83-108) L 08/20/23 22:28 ABG O2 Saturation 94.5 % (94-97) 08/20/23 22:28 PT/INR, D-dimer PT 15.7 sec (10.0-12.5) H 08/20/23 07:31 INR 1.5 (<1.2) H 08/20/23 07:31 D-Dimer 13.83 mg/L FEU (<0.60) H 08/19/23 17:17 Abnormal lab findings: Abnormal Labs 08/14/23 08/14/23 08/14/23 16:51 16:51 16:51 WBC 37.1 H RBC 3.87 L Hgb 11.1 L Hct 33.5 L RDW Plt Count 49 L Blast Cells % 13 H* Neutrophils # (Manual) 15.50 H Lymphocytes # (Manual) 10.02 H Monocytes # (Manual) 4.45 H Eosinophils # (Manual) Metamyelocytes # (Man) 1.48 H Myelocytes # (Manual) 1.11 H Promyelocytes # (Man) Blast Cells # (Man) 4.82 H Nucleated RBCs NRBC/100 WBC Diff Pathologist Review See comment A Immature Plt Fraction Microcytosis (manual) PT 13.8 H INR 1.3 H Fibrinogen D-Dimer ABG pH ABG pCO2 ABG pO2 ABG HCO3 ABG Total CO2 Sodium Potassium Chloride Carbon Dioxide 19 L Anion Gap BUN 34 H Creatinine 3.13 H Est GFR (CKD-EPI) BUN/Creatinine Ratio Glucose 181 H POC Glucose (mg/dL) Hemoglobin A1c Uric Acid Calcium Phosphorus Magnesium AST Alkaline Phosphatase Troponin I Total Protein Albumin Zhzvu-8-Jvsymdoac Triglycerides VLDL Cholesterol, Calc HDL Cholesterol Urine Protein Urine Glucose (UA) Urine Blood Urine RBC Urine Mucus Crossmatch 08/14/23 08/14/23 08/15/23 16:51 18:23 08:24 WBC RBC Hgb Hct RDW Plt Count Blast Cells % Neutrophils # (Manual) Lymphocytes # (Manual) Monocytes # (Manual) Eosinophils # (Manual) Metamyelocytes # (Man) Myelocytes # (Manual) Promyelocytes # (Man) Blast Cells # (Man) Nucleated RBCs NRBC/100 WBC Diff Pathologist Review Immature Plt Fraction Microcytosis (manual) PT INR Fibrinogen D-Dimer ABG pH ABG pCO2 ABG pO2 ABG HCO3 ABG Total CO2 Sodium Potassium 3.1 L Chloride 108 H Carbon Dioxide 17 L Anion Gap BUN 36 H Creatinine 3.20 H Est GFR (CKD-EPI) BUN/Creatinine Ratio Glucose 151 H POC Glucose (mg/dL) Hemoglobin A1c Uric Acid Calcium Phosphorus Magnesium 1.3 L AST Alkaline Phosphatase Troponin I Total Protein Albumin Ojops-7-Rdsmhnkug Triglycerides 273.00 H VLDL Cholesterol, Calc 54.60 H HDL Cholesterol 19.10 L Urine Protein Urine Glucose (UA) Urine Blood Urine RBC Urine Mucus Crossmatch 08/15/23 08/15/23 08/15/23 12:32 15:14 16:20 WBC RBC Hgb Hct RDW Plt Count Blast Cells % Neutrophils # (Manual) Lymphocytes # (Manual) Monocytes # (Manual) Eosinophils # (Manual) Metamyelocytes # (Man) Myelocytes # (Manual) Promyelocytes # (Man) Blast Cells # (Man) Nucleated RBCs NRBC/100 WBC Diff Pathologist Review Immature Plt Fraction Microcytosis (manual) PT 13.7 H INR 1.3 H Fibrinogen D-Dimer ABG pH ABG pCO2 ABG pO2 ABG HCO3 ABG Total CO2 Sodium Potassium Chloride Carbon Dioxide Anion Gap BUN Creatinine Est GFR (CKD-EPI) BUN/Creatinine Ratio Glucose POC Glucose (mg/dL) 155 H Hemoglobin A1c Uric Acid Calcium Phosphorus Magnesium AST Alkaline Phosphatase Troponin I Total Protein Albumin Ftpbw-1-Klaudxbhd Triglycerides VLDL Cholesterol, Calc HDL Cholesterol Urine Protein 2+ H Urine Glucose (UA) 3+ H Urine Blood Moderate H Urine RBC >182 H Urine Mucus Rare H Crossmatch 08/15/23 08/15/23 08/16/23 17:29 20:19 05:58 WBC RBC Hgb Hct RDW Plt Count Blast Cells % Neutrophils # (Manual) Lymphocytes # (Manual) Monocytes # (Manual) Eosinophils # (Manual) Metamyelocytes # (Man) Myelocytes # (Manual) Promyelocytes # (Man) Blast Cells # (Man) Nucleated RBCs NRBC/100 WBC Diff Pathologist Review Immature Plt Fraction Microcytosis (manual) PT INR Fibrinogen D-Dimer ABG pH ABG pCO2 ABG pO2 ABG HCO3 ABG Total CO2 Sodium Potassium Chloride 109 H Carbon Dioxide 18 L Anion Gap BUN 42 H Creatinine 3.63 H Est GFR (CKD-EPI) BUN/Creatinine Ratio Glucose 137 H POC Glucose (mg/dL) 189 H 159 H Hemoglobin A1c Uric Acid Calcium Phosphorus Magnesium AST Alkaline Phosphatase Troponin I Total Protein 6.1 L Albumin Anbyq-6-Sqhajpfny Triglycerides VLDL Cholesterol, Calc HDL Cholesterol Urine Protein Urine Glucose (UA) Urine Blood Urine RBC Urine Mucus Crossmatch 08/16/23 08/16/23 08/16/23 05:58 05:58 07:12 WBC 30.9 H RBC 3.64 L Hgb 10.6 L Hct 31.8 L RDW Plt Count 38 L Blast Cells % 8 H* Neutrophils # (Manual) 11.10 H Lymphocytes # (Manual) 9.89 H Monocytes # (Manual) 7.11 H Eosinophils # (Manual) Metamyelocytes # (Man) Myelocytes # (Manual) Promyelocytes # (Man) Blast Cells # (Man) 2.47 H Nucleated RBCs 2 H NRBC/100 WBC Diff Pathologist Review Immature Plt Fraction Microcytosis (manual) PT INR Fibrinogen D-Dimer ABG pH ABG pCO2 ABG pO2 ABG HCO3 ABG Total CO2 Sodium Potassium Chloride Carbon Dioxide Anion Gap BUN Creatinine Est GFR (CKD-EPI) BUN/Creatinine Ratio Glucose POC Glucose (mg/dL) 143 H Hemoglobin A1c Uric Acid 12.7 H Calcium Phosphorus 5.2 H Magnesium AST Alkaline Phosphatase Troponin I Total Protein Albumin Isdmj-8-Utfhdksaq Triglycerides VLDL Cholesterol, Calc HDL Cholesterol Urine Protein Urine Glucose (UA) Urine Blood Urine RBC Urine Mucus Crossmatch 08/16/23 08/16/23 08/16/23 11:56 13:30 17:53 WBC RBC Hgb Hct RDW Plt Count Blast Cells % Neutrophils # (Manual) Lymphocytes # (Manual) Monocytes # (Manual) Eosinophils # (Manual) Metamyelocytes # (Man) Myelocytes # (Manual) Promyelocytes # (Man) Blast Cells # (Man) Nucleated RBCs NRBC/100 WBC Diff Pathologist Review Immature Plt Fraction Microcytosis (manual) PT INR Fibrinogen D-Dimer ABG pH ABG pCO2 ABG pO2 ABG HCO3 ABG Total CO2 Sodium Potassium Chloride Carbon Dioxide Anion Gap BUN Creatinine Est GFR (CKD-EPI) BUN/Creatinine Ratio Glucose POC Glucose (mg/dL) 141 H 122 H Hemoglobin A1c Uric Acid Calcium Phosphorus Magnesium AST Alkaline Phosphatase Troponin I Total Protein Albumin Jvqkq-2-Txqbbqrgi 0.50 H Triglycerides VLDL Cholesterol, Calc HDL Cholesterol Urine Protein Urine Glucose (UA) Urine Blood Urine RBC Urine Mucus Crossmatch 08/16/23 08/17/23 08/17/23 20:25 05:45 07:17 WBC RBC Hgb Hct RDW Plt Count Blast Cells % Neutrophils # (Manual) Lymphocytes # (Manual) Monocytes # (Manual) Eosinophils # (Manual) Metamyelocytes # (Man) Myelocytes # (Manual) Promyelocytes # (Man) Blast Cells # (Man) Nucleated RBCs NRBC/100 WBC Diff Pathologist Review Immature Plt Fraction Microcytosis (manual) PT INR Fibrinogen D-Dimer ABG pH ABG pCO2 ABG pO2 ABG HCO3 ABG Total CO2 Sodium Potassium Chloride Carbon Dioxide 18.8 L Anion Gap 14.20 H BUN 47.9 H Creatinine 4.4 H Est GFR (CKD-EPI) 14 L BUN/Creatinine Ratio 10.89 L Glucose 156 H POC Glucose (mg/dL) 259 H 143 H Hemoglobin A1c Uric Acid Calcium Phosphorus Magnesium AST Alkaline Phosphatase Troponin I Total Protein Albumin Yrvxq-9-Qqhvikwle Triglycerides VLDL Cholesterol, Calc HDL Cholesterol Urine Protein Urine Glucose (UA) Urine Blood Urine RBC Urine Mucus Crossmatch 08/17/23 08/17/23 08/17/23 12:16 17:17 20:33 WBC RBC Hgb Hct RDW Plt Count Blast Cells % Neutrophils # (Manual) Lymphocytes # (Manual) Monocytes # (Manual) Eosinophils # (Manual) Metamyelocytes # (Man) Myelocytes # (Manual) Promyelocytes # (Man) Blast Cells # (Man) Nucleated RBCs NRBC/100 WBC Diff Pathologist Review Immature Plt Fraction Microcytosis (manual) PT INR Fibrinogen D-Dimer ABG pH ABG pCO2 ABG pO2 ABG HCO3 ABG Total CO2 Sodium Potassium Chloride Carbon Dioxide Anion Gap BUN Creatinine Est GFR (CKD-EPI) BUN/Creatinine Ratio Glucose POC Glucose (mg/dL) 133 H 236 H 392 H Hemoglobin A1c Uric Acid Calcium Phosphorus Magnesium AST Alkaline Phosphatase Troponin I Total Protein Albumin Lzvea-4-Kwwufqvcv Triglycerides VLDL Cholesterol, Calc HDL Cholesterol Urine Protein Urine Glucose (UA) Urine Blood Urine RBC Urine Mucus Crossmatch 08/18/23 08/18/23 08/18/23 05:47 05:47 05:47 WBC 33.85 H RBC 3.30 L Hgb 9.3 L Hct 28.5 L RDW 14.9 H Plt Count 40 L Blast Cells % Neutrophils # (Manual) 18.96 H Lymphocytes # (Manual) 8.46 H Monocytes # (Manual) 3.72 H Eosinophils # (Manual) 0 L Metamyelocytes # (Man) Myelocytes # (Manual) Promyelocytes # (Man) 0.68 H Blast Cells # (Man) Nucleated RBCs NRBC/100 WBC Diff 0.26 H Pathologist Review Immature Plt Fraction 8.8 H Microcytosis (manual) 2+ A PT INR Fibrinogen D-Dimer ABG pH ABG pCO2 ABG pO2 ABG HCO3 ABG Total CO2 Sodium 132 L Potassium Chloride Carbon Dioxide 21.3 L Anion Gap 14.70 H BUN 60.2 H Creatinine 5.4 H Est GFR (CKD-EPI) 11 L BUN/Creatinine Ratio 11.15 L Glucose 459 H POC Glucose (mg/dL) Hemoglobin A1c 8.7 H Uric Acid 3.1 L Calcium Phosphorus Magnesium AST Alkaline Phosphatase Troponin I Total Protein 5.5 L Albumin 3.4 L Ctzlp-9-Hzgqwrzan Triglycerides VLDL Cholesterol, Calc HDL Cholesterol Urine Protein Urine Glucose (UA) Urine Blood Urine RBC Urine Mucus Crossmatch 08/18/23 08/18/23 08/18/23 06:52 06:54 12:02 WBC RBC Hgb Hct RDW Plt Count Blast Cells % Neutrophils # (Manual) Lymphocytes # (Manual) Monocytes # (Manual) Eosinophils # (Manual) Metamyelocytes # (Man) Myelocytes # (Manual) Promyelocytes # (Man) Blast Cells # (Man) Nucleated RBCs NRBC/100 WBC Diff Pathologist Review Immature Plt Fraction Microcytosis (manual) PT INR Fibrinogen D-Dimer ABG pH ABG pCO2 ABG pO2 ABG HCO3 ABG Total CO2 Sodium Potassium Chloride Carbon Dioxide Anion Gap BUN Creatinine Est GFR (CKD-EPI) BUN/Creatinine Ratio Glucose POC Glucose (mg/dL) 416 H 428 H 358 H Hemoglobin A1c Uric Acid Calcium Phosphorus Magnesium AST Alkaline Phosphatase Troponin I Total Protein Albumin Vokad-0-Rariqfztv Triglycerides VLDL Cholesterol, Calc HDL Cholesterol Urine Protein Urine Glucose (UA) Urine Blood Urine RBC Urine Mucus Crossmatch 08/18/23 08/18/23 08/18/23 17:18 20:45 22:39 WBC RBC Hgb Hct RDW Plt Count Blast Cells % Neutrophils # (Manual) Lymphocytes # (Manual) Monocytes # (Manual) Eosinophils # (Manual) Metamyelocytes # (Man) Myelocytes # (Manual) Promyelocytes # (Man) Blast Cells # (Man) Nucleated RBCs NRBC/100 WBC Diff Pathologist Review Immature Plt Fraction Microcytosis (manual) PT INR Fibrinogen D-Dimer ABG pH ABG pCO2 ABG pO2 ABG HCO3 ABG Total CO2 Sodium Potassium Chloride Carbon Dioxide Anion Gap BUN Creatinine Est GFR (CKD-EPI) BUN/Creatinine Ratio Glucose POC Glucose (mg/dL) 254 H 287 H 276 H Hemoglobin A1c Uric Acid Calcium Phosphorus Magnesium AST Alkaline Phosphatase Troponin I Total Protein Albumin Irvbc-4-Yhdngulbu Triglycerides VLDL Cholesterol, Calc HDL Cholesterol Urine Protein Urine Glucose (UA) Urine Blood Urine RBC Urine Mucus Crossmatch 08/19/23 08/19/23 08/19/23 05:44 05:48 07:04 WBC 75.48 A* RBC 3.08 L Hgb 8.6 L Hct 26.6 L RDW 15.1 H Plt Count 51 L Blast Cells % Neutrophils # (Manual) 34.72 H Lymphocytes # (Manual) 12.83 H Monocytes # (Manual) 24.91 H Eosinophils # (Manual) 0 L Metamyelocytes # (Man) Myelocytes # (Manual) Promyelocytes # (Man) 0.75 H Blast Cells # (Man) Nucleated RBCs NRBC/100 WBC Diff 0.81 H Pathologist Review Immature Plt Fraction 11.2 H Microcytosis (manual) PT INR Fibrinogen D-Dimer ABG pH ABG pCO2 ABG pO2 ABG HCO3 ABG Total CO2 Sodium 133 L Potassium Chloride 91 L Carbon Dioxide Anion Gap 18.10 H BUN 56.8 H Creatinine 5.5 H Est GFR (CKD-EPI) 11 L BUN/Creatinine Ratio 10.33 L Glucose 370 H POC Glucose (mg/dL) 363 H Hemoglobin A1c Uric Acid Calcium Phosphorus 6.0 H Magnesium AST 54 H Alkaline Phosphatase 230 H Troponin I Total Protein 6.0 L Albumin Trfsk-4-Cgdiwsbmr Triglycerides VLDL Cholesterol, Calc HDL Cholesterol Urine Protein Urine Glucose (UA) Urine Blood Urine RBC Urine Mucus Crossmatch 08/19/23 08/19/23 08/19/23 12:03 12:31 17:14 WBC RBC Hgb Hct RDW Plt Count Blast Cells % Neutrophils # (Manual) Lymphocytes # (Manual) Monocytes # (Manual) Eosinophils # (Manual) Metamyelocytes # (Man) Myelocytes # (Manual) Promyelocytes # (Man) Blast Cells # (Man) Nucleated RBCs NRBC/100 WBC Diff Pathologist Review Immature Plt Fraction Microcytosis (manual) PT 17.0 H INR 1.7 H Fibrinogen 93 L D-Dimer ABG pH ABG pCO2 ABG pO2 ABG HCO3 ABG Total CO2 Sodium Potassium Chloride Carbon Dioxide Anion Gap BUN Creatinine Est GFR (CKD-EPI) BUN/Creatinine Ratio Glucose POC Glucose (mg/dL) 326 H 294 H Hemoglobin A1c Uric Acid Calcium Phosphorus Magnesium AST Alkaline Phosphatase Troponin I Total Protein Albumin Kqtfk-4-Ividpydfg Triglycerides VLDL Cholesterol, Calc HDL Cholesterol Urine Protein Urine Glucose (UA) Urine Blood Urine RBC Urine Mucus Crossmatch 08/19/23 08/19/23 08/19/23 17:17 17:17 17:17 WBC 74.7 H* RBC 3.04 L Hgb 9.0 L D Hct 27.9 L RDW Plt Count 52 L Blast Cells % 20 H* Neutrophils # (Manual) 20.10 H Lymphocytes # (Manual) Monocytes # (Manual) 9.71 H Eosinophils # (Manual) Metamyelocytes # (Man) 0.75 H Myelocytes # (Manual) 1.49 H Promyelocytes # (Man) Blast Cells # (Man) 14.94 H Nucleated RBCs 1 H NRBC/100 WBC Diff Pathologist Review Immature Plt Fraction Microcytosis (manual) PT INR Fibrinogen D-Dimer 13.83 H ABG pH ABG pCO2 ABG pO2 ABG HCO3 ABG Total CO2 Sodium 133 L Potassium Chloride 92 L Carbon Dioxide Anion Gap BUN 72 H Creatinine 5.89 H Est GFR (CKD-EPI) BUN/Creatinine Ratio Glucose 282 H POC Glucose (mg/dL) Hemoglobin A1c Uric Acid Calcium Phosphorus Magnesium AST 112 H Alkaline Phosphatase 731 H Troponin I Total Protein 6.2 L Albumin Nutnw-4-Fpepljbgu Triglycerides VLDL Cholesterol, Calc HDL Cholesterol Urine Protein Urine Glucose (UA) Urine Blood Urine RBC Urine Mucus Crossmatch 08/19/23 08/19/23 08/19/23 17:17 19:44 21:51 WBC RBC Hgb Hct RDW Plt Count Blast Cells % Neutrophils # (Manual) Lymphocytes # (Manual) Monocytes # (Manual) Eosinophils # (Manual) Metamyelocytes # (Man) Myelocytes # (Manual) Promyelocytes # (Man) Blast Cells # (Man) Nucleated RBCs NRBC/100 WBC Diff Pathologist Review Immature Plt Fraction Microcytosis (manual) PT 15.7 H INR 1.5 H Fibrinogen 110 L D-Dimer ABG pH ABG pCO2 ABG pO2 ABG HCO3 ABG Total CO2 Sodium Potassium Chloride Carbon Dioxide Anion Gap BUN Creatinine Est GFR (CKD-EPI) BUN/Creatinine Ratio Glucose POC Glucose (mg/dL) 280 H Hemoglobin A1c Uric Acid Calcium Phosphorus Magnesium AST Alkaline Phosphatase Troponin I 0.348 H* Total Protein Albumin Qqxcl-9-Wntqhtbij Triglycerides VLDL Cholesterol, Calc HDL Cholesterol Urine Protein Urine Glucose (UA) Urine Blood Urine RBC Urine Mucus Crossmatch 08/20/23 08/20/23 08/20/23 07:04 07:31 07:31 WBC 80.03 A* RBC 2.56 L Hgb 7.2 L Hct 22.5 L RDW 15.2 H Plt Count 32 L Blast Cells % Neutrophils # (Manual) 34.41 H Lymphocytes # (Manual) 22.41 H Monocytes # (Manual) 12.00 H Eosinophils # (Manual) 0 L Metamyelocytes # (Man) Myelocytes # (Manual) Promyelocytes # (Man) Blast Cells # (Man) 8.00 H Nucleated RBCs NRBC/100 WBC Diff 0.58 H Pathologist Review Immature Plt Fraction 12.0 H Microcytosis (manual) PT 15.7 H INR 1.5 H Fibrinogen 110 L D-Dimer ABG pH ABG pCO2 ABG pO2 ABG HCO3 ABG Total CO2 Sodium Potassium Chloride Carbon Dioxide Anion Gap BUN Creatinine Est GFR (CKD-EPI) BUN/Creatinine Ratio Glucose POC Glucose (mg/dL) 408 H Hemoglobin A1c Uric Acid Calcium Phosphorus Magnesium AST Alkaline Phosphatase Troponin I Total Protein Albumin Xqrdj-4-Ieqvdfajb Triglycerides VLDL Cholesterol, Calc HDL Cholesterol Urine Protein Urine Glucose (UA) Urine Blood Urine RBC Urine Mucus Crossmatch 08/20/23 08/20/23 08/20/23 07:31 07:31 12:33 WBC RBC Hgb Hct RDW Plt Count Blast Cells % Neutrophils # (Manual) Lymphocytes # (Manual) Monocytes # (Manual) Eosinophils # (Manual) Metamyelocytes # (Man) Myelocytes # (Manual) Promyelocytes # (Man) Blast Cells # (Man) Nucleated RBCs NRBC/100 WBC Diff Pathologist Review Immature Plt Fraction Microcytosis (manual) PT INR Fibrinogen D-Dimer ABG pH ABG pCO2 ABG pO2 ABG HCO3 ABG Total CO2 Sodium 131 L Potassium Chloride 82 L Carbon Dioxide Anion Gap 26.80 H BUN 77.7 H Creatinine 7.0 H Est GFR (CKD-EPI) 8 L BUN/Creatinine Ratio 11.10 L Glucose 371 H POC Glucose (mg/dL) 261 H Hemoglobin A1c Uric Acid Calcium 8.4 L Phosphorus 9.7 A* Magnesium AST 358 H Alkaline Phosphatase 2438 H Troponin I 0.329 H* Total Protein 5.7 L Albumin 3.7 L Gddzh-6-Beofkvrdj Triglycerides VLDL Cholesterol, Calc HDL Cholesterol Urine Protein Urine Glucose (UA) Urine Blood Urine RBC Urine Mucus Crossmatch 08/20/23 08/20/23 08/20/23 16:26 19:01 19:16 WBC RBC Hgb Hct RDW Plt Count Blast Cells % Neutrophils # (Manual) Lymphocytes # (Manual) Monocytes # (Manual) Eosinophils # (Manual) Metamyelocytes # (Man) Myelocytes # (Manual) Promyelocytes # (Man) Blast Cells # (Man) Nucleated RBCs NRBC/100 WBC Diff Pathologist Review Immature Plt Fraction Microcytosis (manual) PT INR Fibrinogen 191 L D-Dimer ABG pH ABG pCO2 ABG pO2 ABG HCO3 ABG Total CO2 Sodium Potassium Chloride Carbon Dioxide Anion Gap BUN Creatinine Est GFR (CKD-EPI) BUN/Creatinine Ratio Glucose POC Glucose (mg/dL) 266 H 220 H Hemoglobin A1c Uric Acid Calcium Phosphorus Magnesium AST Alkaline Phosphatase Troponin I Total Protein Albumin Qjcsv-2-Ccyipljjq Triglycerides VLDL Cholesterol, Calc HDL Cholesterol Urine Protein Urine Glucose (UA) Urine Blood Urine RBC Urine Mucus Crossmatch 08/20/23 08/20/23 08/20/23 20:36 21:33 22:28 WBC 48.3 H RBC 2.23 L Hgb 6.5 L* D Hct 19.3 L* RDW Plt Count 17 L* D Blast Cells % Neutrophils # (Manual) Lymphocytes # (Manual) Monocytes # (Manual) Eosinophils # (Manual) Metamyelocytes # (Man) Myelocytes # (Manual) Promyelocytes # (Man) Blast Cells # (Man) Nucleated RBCs NRBC/100 WBC Diff Pathologist Review Immature Plt Fraction Microcytosis (manual) PT INR Fibrinogen D-Dimer ABG pH 7.54 H ABG pCO2 30 L ABG pO2 68 L ABG HCO3 26 H ABG Total CO2 27 H Sodium Potassium Chloride Carbon Dioxide Anion Gap BUN Creatinine Est GFR (CKD-EPI) BUN/Creatinine Ratio Glucose POC Glucose (mg/dL) 225 H Hemoglobin A1c Uric Acid Calcium Phosphorus Magnesium AST Alkaline Phosphatase Troponin I Total Protein Albumin Dthwx-0-Cmrkudwqj Triglycerides VLDL Cholesterol, Calc HDL Cholesterol Urine Protein Urine Glucose (UA) Urine Blood Urine RBC Urine Mucus Crossmatch 08/20/23 08/20/23 22:29 23:14 WBC RBC Hgb Hct RDW Plt Count Blast Cells % Neutrophils # (Manual) Lymphocytes # (Manual) Monocytes # (Manual) Eosinophils # (Manual) Metamyelocytes # (Man) Myelocytes # (Manual) Promyelocytes # (Man) Blast Cells # (Man) Nucleated RBCs NRBC/100 WBC Diff Pathologist Review Immature Plt Fraction Microcytosis (manual) PT INR Fibrinogen D-Dimer ABG pH ABG pCO2 ABG pO2 ABG HCO3 ABG Total CO2 Sodium Potassium Chloride Carbon Dioxide Anion Gap BUN Creatinine Est GFR (CKD-EPI) BUN/Creatinine Ratio Glucose POC Glucose (mg/dL) 207 H Hemoglobin A1c Uric Acid Calcium Phosphorus Magnesium AST Alkaline Phosphatase Troponin I Total Protein Albumin Zuzbf-5-Vhbrijrtm Triglycerides VLDL Cholesterol, Calc HDL Cholesterol Urine Protein Urine Glucose (UA) Urine Blood Urine RBC Urine Mucus Crossmatch See Detail - Diagnostic Findings Chest x-ray: image reviewed CT scan - chest: image reviewed Assessment and Plan Assessment: Recent diagnosis of lymphoma Bicytopenia, with thrombocytopenia and anemia Tumor lysis syndrome Suspected DIC, patient is status post transfusion of 2 units cryoprecipitate, 1 platelets. Symptomatic anemia, status post transfusion 1 unit PRBC Splenomegaly, measuring 16.[address] Acute hypoxemic respiratory failure, currently requiring 6 L nasal cannula. Acute on chronic kidney disease, secondary to above, requiring hemodialysis Left 3 mm calculus at the left ureteral-vesicular junction without associated hydronephrosis. Elevated troponin, rule out non-STEMI Soft tissue skin nodules, biopsied and pathology is pending Right axillary lymphadenopathy Obstructive sleep apnea, with home nasal CPAP History of asthma, not active Hypertension Hyperlipidemia Diabetes mellitus type 2 Obesity, with a BMI of 36.9 kg/m Plan: Patient's medications, labs, imaging reviewed. Continue supplemental oxygen to maintain oxygen saturation of 92% or greater. Currently requiring 6 L/min nasal cannula. Use home nasal CPAP HS. Patient was in some respiratory distress earlier with activity. He was found to be anemic, and is receiving 1 unit PRBCs. No overt signs of bleeding. Hemodynamically stable. Not requiring any vasopressors. There is adequate IV access. Patient is status post transfusion of 2 cryoprecipitate and 1 platelet. Monitoring coagulation factors daily. Hemodialysis being managed by nephrology. It was advised by medical oncology to transfer the patient to a tertiary care center for initiation of systemic treatment. Patient has a bed waiting at [facility]. This will be an ICU to ICU transfer. My supervising physician is aware of this patient, and has already spoke to the accepting ICU attending. We are waiting for transport to be arranged. I have personally seen and examined the patient, performed the documentation and the assessment and plan as written. Number of minutes spent on the visit:20 Time with Patient: Greater than 30
[2023-08-21 02:29] VITALS: BP 147/78; PULSE 94; RESP 20
--- NOTE | 2023-08-21 06:31 | P.DS ---
Providers Date of admission: 08/14/23 20:13 Attending physician: Arnold Osborn Consults: 08/14/23 20:08 Consult Physician Urgent Consulting Provider: Char Pugh Consult Reason/Comments: Lymphoma Do you want consulting provider notified?: Yes 08/14/23 20:09 Consult Physician Urgent Consulting Provider: Jonathan Brown Consult Reason/Comments: Acute kidney failure Do you want consulting provider notified?: Yes 08/15/23 06:06 Consult Physician Routine Consulting Provider: Abhijit Ross Consult Reason/Comments: Biopsy of the Axilla Do you want consulting provider notified?: Yes 08/18/23 12:51 Consult Physician Stat Consulting Provider: Maurice Oconnell Consult Reason/Comments: TLS with renal failure, starting HD Do you want consulting provider notified?: Already Contacted 08/19/23 11:25 Consult Physician Routine Consulting Provider: Drew Grimes Consult Reason/Comments: renal calculus, ? infection to kidneys Do you want consulting provider notified?: Already Contacted 08/19/23 21:13 Consult Physician Routine Consulting Provider: Rob Gillis Consult Reason/Comments: ELEVATED TROPONIN Do you want consulting provider notified?: Yes 08/20/23 16:38 Consult Physician Routine Consulting Provider: Henry Woods Consult Reason/Comments: ICU managment Do you want consulting provider notified?: Already Contacted Primary care physician: Arnold Osborn [facility] Course: Chief Complaint: Sepsis leukocytosis, thrombocytopenia, newly diagnosed left aggressive lymp 62-year-old gentleman went off my office patient was known for the last 10 years with past medical history of type 2 diabetes, chronic kidney disease, atherosclerotic heart disease, hypertension, hyperlipidemia, severe obstructive sleep apnea, recurrent asthma, severe neuropathy mild obesity who had seen dermatology over 2 weeks ago apparently for reactive dermatitis all over his body looks like small tiny sarcoma or granuloma but has been getting much worse. Ended up having biopsy at Dr. Reyna's office 2 weeks ago and were waiting for the result. Patient was seen in our office for last 10 days with progressive worsening symptoms consistent with severe tiredness fatigue and overall not feeling well surprisingly he started having an acute kidney injury with acute tubular necrosis with worsening kidney function creatinine climbing up from 1.6- 3.6 and short period of time. Had an appointment to see nephrology on Sunday for the last blood test has on last week shows reactive leukocytosis with significant thrombocytopenia and mild anemia repeat CBC today shows his white blood cell 40,000 with platelet count around 40,000 as well. 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 With a high suspicion for sepsis and worsening progressive acute kidney failure and possible of sepsis patient in the coming to the emergency department for was seen and evaluated blood culture was initiated repeat blood test and patient ended up going for CT of the abdomen and pelvis surprisingly shows new right axillary adenopathy measuring 3.6 cm with multiple lymphadenopathy all over also had splenomegaly with hepatomegaly and adrenal adenoma as well also finding consistent with lymph node all over consistent with lymphoma and circumferential bladder wall thickening and might represent chronic cystitis. We decided to admit patient to the hospital at this point specially declining kidney function will be seen oncology probably develop pathway to ask general surgery to do biopsy from the axillary lymph node for fast diagnosis as well to decide further management also gentle hydration. Repeat kidney function patient will be seen nephrology as inpatient as well if worsening symptoms patient might be close to need dialysis as well. 08/15/2023: He was seen today by oncology revealed a finding consistent with lymphoma patient will have axilla lymph node for biopsy done by general surgery tomorrow also oncology are planning to do PET scan prior to any treatment or management as for potential of bone marrow biopsy needs to be determined. Nephrology seen patient agree this is an acute tubular necrosis most likely ischemic from lymphomatosis involvement with significant increase in creatinine which may patient has stage IIIa chronic kidney disease. Agree to continue hydration check UA check renal ultrasound and continue to scan the bladder will add oral bicarbonate and avoid any nephrotoxic agent. Again general surgery seen patient and agree to do right axilla lymph node biopsy tomorrow continue to watch his blood level. 08-16-2023: Is doing well and is scheduled for biopsy with Dr. Ross today, his white blood cell is down to 30,000 platelets are down to 38,000 as well his creatinine is much worse at 3.63 with bun of 42, his acute kidney injury has declined more mostly related to ischemic change from lymphomatosis involvement causing acute tubular necrosis. As for his lymphoma still been still be careful with oncology waiting for the final culture the patient will be going for PET scan possibly in the next few days before deciding the course of treatment. 08/17/2023: Patient was doing very well and upon biopsy yesterday successfully waiting for the final result, will see if oncology have any plan to do while still in the hospital or patient can be discharged and continue the rest of his management as an outpatient. 08/18/2023: Awaiting for transfer to [facility] still waiting for insurance approval at this point patient declined a lot more seen his creatinine is up to 5.4 bun 60. White blood cell still 33,000 hemoglobin 9.3 and platelet count 40,000. He has seen oncology and nephrology patient might read urgent dialysis at this point and as for the biopsy results still pending at this point but seems like patient is having an aggressive type of lymphoma might benefit from tertiary center being an [facility]. He is in slight bit increased pain from the surgical site along with his lower back has been using smaller dose of Dilaudid on as-needed basis. Blood sugar s till mildly elevated will titrate his NovoLog and long-acting insulin today furthermore. 08/19/2023: Patient still waiting to be transferred to [facility], his kidney function had declined more ended up starting dialysis yesterday. He is in so much lower back pain plan x-ray of the lumbar and thoracic spine if needed an MRI will be done as neck step and titrate his pain meds for better control. Fi nding of possible obstructive stone in the ureter will consult urology as well. His rash slightly better at this point but much worsening blood work and worsening lymphoma. I spoke with him and called his dad with update that his prognosis remain guarded he will require probably further testing for his lymphoma before starting any chemotherapy and the kidney function is worsening. Review of Systems: CONSTITUTIONAL: Mildly overweight does not look comfortable no major respiratory distress. EYES: No icterus sclerae, no conjunctivitis. EARS, NOSE, MOUTH, THROAT, and FACE: No sore throat, lymphadenopathy, carotid bruits or deformity. RESPIRATORY: Mild shortness of breath no wheezes. CARDIOVASCULAR: No CP, Palpitation, PND, Orthopnea, or angina. GASTROINTESTINAL: Slight abdominal discomfort with ventral hernia no nausea or vomiting slight change in bowel habit as well. GENITOURINARY: Decrease in kidney function with less frequent urination without any hematuria at this point. INTEGUMENT/BREAST: Lymph node enlargement. HEMATOLOGIC/LYMPHATIC: Lymph node enlargement with mild anemia. MUSCULOSKELTAL: Negative for Myalgia or arthralgia. NEURLOGICAL: No LOC, Sz or syncope, blurred vision dizziness or abnormality.. BEHAVIORAL/PSYCH: Negative. ENDOCRINE: Negative. Physical examination: General Appearance: Alert, slightly overweight, does not look comfortable but no respiratory distress. Neck HEENT: Supple with slight lymph node enlargement without any thyroid enlargement. Lungs: Clear to auscultation without crackles slight rhonchi no wheezes. Chest Wall: Chest wall normal expansion with deep inspiration no tenderness and no deformity was found on exam, no costochondral pain or discomfort. Heart: Regular rate and rhythm, S1, S2 normal, no murmur, rub or gallop. Back: Symmetric, no curvature, ROM normal, no CVA tenderness. Abdomen: Positive ventral hernia, slightly enlarged spleen, mildly hepatomegaly with mild discomfort in the mid abdominal region area. Extremities: Extremities normal, atraumatic, no cyanosis or edema. Pulses: 2+ and symmetric. Skin: Small granulated rash all over his body including the face and neck the chest wall area more like reactive dermatitis Neurologic: Alert oriented x3 cranial nerves II through XII intact, no motor deficit, no abnormal balance or gait. Assessment and plan: - newly diagnosis of aggressive lymphoma: Seems like very aggressive type of lymphoma biopsy results still pending at this point patient still seen oncology but in process to be transferred to [facility]. - acute kidney injury with acute tubular necrosis: Mostly from tubular obstruction and ischemia from lymphomatosis involvement, much worsening kidney function was started on hemodialysis yesterday. - severe thrombocytopenia most likely reactive to either sepsis or his lymphoma may be there is any involvement of his lymphoma in the bone marrow especially if this is an aggressive type of lymphoma causing the suppressive bone marrow to have thrombocytopenia. Patient might require platelet transfusion and prepare for his biopsy. - type 2 diabetes: Will titrate his Tresiba higher today at least 10 units and NovoLog will go up to 5 extra units AC meals besides sliding scales. Blood sugar still high and will titrate his Tresiba and NovoLog furthermore today. - chronic neuropathy: Has not been on any medication lately but slightly bit worse. Chronic back pain with worsening symptoms: Titrate his Dilaudid up to 1 mg every 3 hours and x-ray of thoracic and lumbar spine be done to exclude any possibility of metastasis. - chronic asthma has been seen pulmonary regular basis remain on albuterol and budesonide. Possible ureteral stone: Will be seen urology for possible intervention if needed. - severe BPH: Has been on Flomax 0.4 mg daily. - hyperlipidemia will continue simvastatin 40 mg a day. - atherosclerotic heart disease has been seeing cardiology last stress test was from April last year. - hiatal hernia with worsening symptoms of GERD: Remain on omeprazole 20 mg twice a day on regular basis. Discussion: His prognosis is guarded continue hemodialysis and still waiting to transfer patient to tertiary center for further management. Hospital course: Patient had declined quite a bit while in the hospital for the last few days he become an acute kidney failure requiring dialysis from tumor lysis mostly and complication related to his lymphoma. Also his biopsy was done from the back to the area Losing more blood patient still waiting for the final result of the biopsy for the side on the course of treatment. With his overall condition declining more was [facility] be [facility] and managed by 1 of lymphoma subspecialist. Few hours before his discharge he developed to have slight decreased level of consciousness and earlier has been having slight chest pain and tightness with elevated troponin considered to be non-ST DE at the time but no testing can be done no anticoagulation can be used at this point. The patient furthermore when he is feeling well he might need to go for heart cath in the meanwhile an echocardiogramWas done still waiting for the final result to see what his ejection fraction and if he has any wall motion abnormality. Patient was accepted for his transfer to [facility] was not transferred late on 08/21/2023. Plan - Discharge Summary New Discharge Prescriptions: No Action Simvastatin 40 mg PO HS Pioglitazone [Actos] 30 mg PO DAILY Metoprolol Tartrate [Lopressor] 50 mg PO BID Omeprazole 20 mg PO BID Montelukast [Singulair] 10 mg PO DAILY Insulin Degludec [Tresiba Flextouch U-200 Pen] 50 units SQ HS Budesonide/Glycopyr/Formoterol [Breztri Aerosphere Inhaler] 2 puff INHALATION RT-DAILY Tamsulosin [Flomax] 0.4 mg PO DAILY Albuterol Inhaler [Ventolin Hfa Inhaler] 2 puff INHALATION RT-Q6H PRN PRN Reason: Shortness Of Breath Tirzepatide [Mounjaro] 7.5 mg SQ MO Discharge Medication List Metoprolol Tartrate [Lopressor] 50 mg PO BID 11/29/16 [History] Pioglitazone [Actos] 30 mg PO DAILY 11/29/16 [History] Simvastatin 40 mg PO HS 11/29/16 [History] Albuterol Inhaler [Ventolin Hfa Inhaler] 2 puff INHALATION RT-Q6H PRN 04/12/23 [History] Insulin Degludec [Tresiba Flextouch U-200 Pen] 50 units SQ HS 04/12/23 [History] Montelukast [Singulair] 10 mg PO DAILY 04/12/23 [History] Omeprazole 20 mg PO BID 04/12/23 [History] Budesonide/Glycopyr/Formoterol [Breztri Aerosphere Inhaler] 2 puff INHALATION RT-DAILY 08/14/23 [History] Tamsulosin [Flomax] 0.4 mg PO DAILY 08/14/23 [History] Tirzepatide [Mounjaro] 7.5 mg SQ MO 08/14/23 [History] Follow up Appointment(s)/Referral(s): Dashawn Rosenthal [STAFF PHYSICIAN] - 08/28/23 9:15 am Arnold Osborn MD [Primary Care Provider] - 1-2 days Discharge Disposition: OTHER INSTITUTION NOT DEFINED
== END 2023-08-21 02:24 | disposition short-term general hospital (02) | DRG 871 ==
LOC: EC 15:49 → 5NMEDONC 20:13 → 2SICU 08-20 16:53
PROVIDERS: ADMIT Internal Medicine Geriatric Medicine; ATTEND Internal Medicine Geriatric Medicine
PROC: 30233R1 Transfusion of Nonautologous Platelets into Peripheral Vein, Percutaneous Approach (ICD-10-PCS; 2023-08-16)
PROC: 0HB6XZX Excision of Back Skin, External Approach, Diagnostic (ICD-10-PCS; principal; 2023-08-16 13:45)
PROC: 02HV33Z Insertion of Infusion Device into Superior Vena Cava, Percutaneous Approach (ICD-10-PCS; 2023-08-18 13:41)
PROC: 0JH60XZ Insertion of Tunneled Vascular Access Device into Chest Subcutaneous Tissue and Fascia, Open Approach (ICD-10-PCS; 2023-08-18 13:41)
PROC: 5A1D70Z Performance of Urinary Filtration, Intermittent, Less than 6 Hours Per Day (ICD-10-PCS; 2023-08-18 13:41)
PROC: 30233M1 Transfusion of Nonautologous Plasma Cryoprecipitate into Peripheral Vein, Percutaneous Approach (ICD-10-PCS; 2023-08-19)
PROC: 02HV33Z Insertion of Infusion Device into Superior Vena Cava, Percutaneous Approach (ICD-10-PCS; 2023-08-20)
PROC: 30233N1 Transfusion of Nonautologous Red Blood Cells into Peripheral Vein, Percutaneous Approach (ICD-10-PCS; 2023-08-21)
DX: A41.9 Sepsis, unspecified organism (principal); D65 Disseminated intravascular coagulation [defibrination syndrome]; E88.3 Tumor lysis syndrome; J96.01 Acute respiratory failure with hypoxia; I21.A1 Myocardial infarction type 2; N17.0 Acute kidney failure with tubular necrosis; C85.98 Non-Hodgkin lymphoma, unspecified, lymph nodes of multiple sites; N20.1 Calculus of ureter; E87.20 Acidosis, unspecified; R16.2 Hepatomegaly with splenomegaly, not elsewhere classified; E11.22 Type 2 diabetes mellitus with diabetic chronic kidney disease; E11.40 Type 2 diabetes mellitus with diabetic neuropathy, unspecified; E11.65 Type 2 diabetes mellitus with hyperglycemia; N18.31 Chronic kidney disease, stage 3a; I12.9 Hypertensive chronic kidney disease with stage 1 through stage 4 chronic kidney disease, or unspecified chronic kidney disease; E66.9 Obesity, unspecified; Z68.36 Body mass index [BMI] 36.0-36.9, adult; Z99.2 Dependence on renal dialysis; J45.909 Unspecified asthma, uncomplicated; E27.8 Other specified disorders of adrenal gland; Z79.4 Long term (current) use of insulin; Z11.52 Encounter for screening for COVID-19; G47.33 Obstructive sleep apnea (adult) (pediatric); E78.5 Hyperlipidemia, unspecified; E83.42 Hypomagnesemia; K44.9 Diaphragmatic hernia without obstruction or gangrene; K21.9 Gastro-esophageal reflux disease without esophagitis; I25.10 Atherosclerotic heart disease of native coronary artery without angina pectoris; E87.6 Hypokalemia; N40.0 Benign prostatic hyperplasia without lower urinary tract symptoms; T38.0X5A Adverse effect of glucocorticoids and synthetic analogues, initial encounter; R31.9 Hematuria, unspecified; G89.29 Other chronic pain; M54.50 Low back pain, unspecified; M25.551 Pain in right hip; M25.552 Pain in left hip; Z79.84 Long term (current) use of oral hypoglycemic drugs; Z79.85 Long-term (current) use of injectable non-insulin antidiabetic drugs; Z79.899 Other long term (current) drug therapy; Z87.891 Personal history of nicotine dependence; Z87.442 Personal history of urinary calculi; Z71.3 Dietary counseling and surveillance; Z88.0 Allergy status to penicillin
CPT/HCPCS: 36415; 36558; 36573; 36600; 71045; 71046; 71250; 72072; 72100; 72125; 74176; 76937; 77001; 80048; 80053; 80061; 80074; 81001; 82570; 82805; 83036; 83605; 83735; 83880; 84100; 84132; 84156; 84165; 84484; 84550; 85025; 85027; 85379; 85384; 85610; 85730; 86038; 86160; 86162; 86225; 86255; 86334; 86335; 86850; 86900; 86901; 86920; 87040; 87635; 88305; 88341; 88342; 90935; 93005; 93306; 94640; 94760; 96361; 96365; 96366; 96367; 96375; 99285